=== PATIENT | male | born 1965 | race Caucasian/White ===

== ENCOUNTER 2017-07-26 11:28 | Inpatient (IN) | payer SELFPAY ==
[2017-07-26] MEDS ORDERED: NITROGLYCERIN SUBLINGUAL 0.4 MG BOTTLE OF 25. SL (12:00)
[2017-07-26 12:09] LABS: ADD MAN DIFF? NO
[2017-07-26] MEDS: ASPIRIN CHEWABLE 81 MG TABLET. PO (12:09)
[2017-07-26] MEDS: NITROGLYCERIN OINT 1 GM PACKET. TP (12:09)
[2017-07-26 12:19] LABS: BASO # 0.1 x10^3/uL (0.0-0.2); BASO % 1 % (0-3); EOS # 0.1 x10^3/uL (0.0-0.7); EOS % 1 % (0-3); HEMATOCRIT 23.2 % (39.0-53.0); HEMOGLOBIN 7.4 g/dL (13.0-17.5); LYMPH # 1.4 x10^3/uL (1.0-4.8); LYMPH % 14 % (24-48); MEAN CORPUSCULAR HEMOGLOBIN 27 pg (25-35); MEAN CORPUSCULAR HGB CONC 32 g/dL (31-37); MEAN CORPUSCULAR VOLUME 85 fL (79-100); MONO # 0.6 x10^3/uL (0.0-1.1); MONO % 6 % (0-9); NEUT # 7.7 x10^3uL (1.8-7.7); NEUT % 77 % (31-73); PLATELET COUNT 218 x10^3/uL (140-400); RED BLOOD COUNT 2.72 x10^6/uL (4.30-5.70); RED CELL DISTRIBUTION WIDTH 16.7 % (11.5-14.5); WHITE BLOOD COUNT 9.9 x10^3/uL (4.0-11.0)
[2017-07-26 12:34] LABS: ANION GAP 17 (6-14); BLOOD UREA NITROGEN 65 mg/dL (8-26); BUN/CREATININE RATIO 8 (6-20); CALCIUM 8.9 mg/dL (8.5-10.1); CARBON DIOXIDE 17 mmol/L (21-32); CHLORIDE 104 mmol/L (98-107); CREATININE 7.7 mg/dL (0.7-1.3); GFR 7.4; GLUCOSE 132 mg/dL (70-99); POTASSIUM 5.3 mmol/L (3.5-5.1); SODIUM 138 mmol/L (136-145)
[2017-07-26 12:36] LABS: INFLUENZA A PATIENT NEGATIVE (NEGATIVE); INFLUENZA B PATIENT NEGATIVE (NEGATIVE); OBC FLU VALID
[2017-07-26 12:45] LABS: ALBUMIN 3.6 g/dL (3.4-5.0); ALK PHOS 128 U/L (46-116); ALT (SGPT) 150 U/L (16-63); AST (SGOT) 123 U/L (15-37); TOTAL BILIRUBIN 0.4 mg/dL (0.2-1.0); TOTAL PROTEIN 7.1 g/dL (6.4-8.2)
[2017-07-26 13:15] LABS: NT-PRO BNP > 35000 pg/mL (0-124)
[2017-07-26] MEDS: FUROSEMIDE 100 MG/10 ML VIAL. IVP (14:29)
[2017-07-26 16:34] LABS: RETIC COUNT 1.5 % (0.5-2.5)
[2017-07-26 16:51] LABS: MAGNESIUM 2.4 mg/dL (1.8-2.4)
[2017-07-26 16:51] LABS: CHOLESTEROL 205 mg/dL (0-200); CHOLESTEROL/HDL RATIO 7.1; HDLC 29 mg/dL (40-60); LDLC 148 mg/dL (0-100); NON-HDL CHOLESTEROL 176 mg/dL (0-129); TRIGLYCERIDES 140 mg/dL (0-150); VLDLC 28 mg/dL (0-40)
[2017-07-26 16:53] LABS: ALBUMIN 3.7 g/dL (3.4-5.0); ALK PHOS 125 U/L (46-116); ALT (SGPT) 149 U/L (16-63); AST (SGOT) 118 U/L (15-37); DIRECT BILIRUBIN 0.1 mg/dL (0.0-0.2); TOTAL BILIRUBIN 0.4 mg/dL (0.2-1.0); TOTAL PROTEIN 6.9 g/dL (6.4-8.2)
[2017-07-26 17:03] LABS: THYROID STIM HORMONE (TSH) 3.477 uIU/mL (0.358-3.74)
[2017-07-26 17:08] LABS: INR 1.4 (0.8-1.1); PROTHROMBIN TIME PATIENT 16.7 SEC (11.7-14.0)
[2017-07-26 17:18] LABS: % SAT IRON 4 % (15-34); IRON,SERUM 18 ug/dL (65-175)
[2017-07-26 17:55] LABS: BARBITURATES NEG (NEG); BENZODIAZEPINES NEG (NEG); CANNABINOIDS NEG (NEG); COCAINE POS (NEG); METHADONE NEG (NEG); OPIATES NEG (NEG); PHENCYCLIDINE NEG (NEG)
[2017-07-26 18:01] LABS: AMPHETAMINE/METHAMPHETAMINE NEG (NEG); ETHANOL, URINE NEG (NEG)
[2017-07-26 18:13] LABS: VITAMIN-B12 1032 pg/mL (247-911)
[2017-07-26 18:13] LABS: FOLATE 11.74 ng/ml (3.2-20.0)
[2017-07-27 01:07] LABS: ADD MAN DIFF? NO
[2017-07-27 01:23] LABS: BASO # 0.1 x10^3/uL (0.0-0.2); BASO % 1 % (0-3); EOS # 0.3 x10^3/uL (0.0-0.7); EOS % 3 % (0-3); LYMPH # 1.5 x10^3/uL (1.0-4.8); LYMPH % 18 % (24-48); MEAN CORPUSCULAR HEMOGLOBIN 27 pg (25-35); MEAN CORPUSCULAR HGB CONC 33 g/dL (31-37); MEAN CORPUSCULAR VOLUME 83 fL (79-100); MONO # 0.4 x10^3/uL (0.0-1.1); MONO % 5 % (0-9); NEUT % 73 % (31-73); PLATELET COUNT 181 x10^3/uL (140-400); RED BLOOD COUNT 2.41 x10^6/uL (4.30-5.70); RED CELL DISTRIBUTION WIDTH 17.7 % (11.5-14.5); WHITE BLOOD COUNT 8.2 x10^3/uL (4.0-11.0)
[2017-07-27 01:32] LABS: ALBUMIN 3.3 g/dL (3.4-5.0); ALBUMIN/GLOBULIN RATIO 1.2 (1.0-1.7); ALK PHOS 111 U/L (46-116); ALT (SGPT) 104 U/L (16-63); ANION GAP 17 (6-14); AST (SGOT) 46 U/L (15-37); BLOOD UREA NITROGEN 64 mg/dL (8-26); BUN/CREATININE RATIO 8 (6-20); CALCIUM 8.3 mg/dL (8.5-10.1); CARBON DIOXIDE 16 mmol/L (21-32); CHLORIDE 105 mmol/L (98-107); CREATININE 7.6 mg/dL (0.7-1.3); GFR 7.6; GLUCOSE 88 mg/dL (70-99); MAGNESIUM 2.1 mg/dL (1.8-2.4); POTASSIUM 3.9 mmol/L (3.5-5.1); SODIUM 138 mmol/L (136-145); TOTAL BILIRUBIN 0.3 mg/dL (0.2-1.0); TOTAL PROTEIN 6.1 g/dL (6.4-8.2)
[2017-07-27] MEDS: NICOTINE 14MG PATCH. TD (01:33)
[2017-07-27 01:35] LABS: HEMATOCRIT 20.1 % (39.0-53.0); HEMOGLOBIN 6.5 g/dL (13.0-17.5)
[2017-07-27 01:36] LABS: TROPONINI 0.204 ng/mL (0.000-0.055)
[2017-07-27 02:17] LABS: MRSA BY PCR Negative (Negative)
[2017-07-27 05:29] LABS: IMMEDIATE SPIN CROSSMATCH 1 1
[2017-07-27] MEDS: ASPIRIN ENTERIC COATED 81 MG TABLET.DR. PO (08:51)
[2017-07-27 09:25] LABS: HEMATOCRIT 25.7 % (39.0-53.0); HEMOGLOBIN 8.2 g/dL (13.0-17.5); MEAN CORPUSCULAR HGB CONC 32 g/dL (31-37)
[2017-07-27] MEDS ORDERED: hydrALAZINE 20 MG/ML VIAL. IVP (11:15)
[2017-07-27] MEDS: ISOSORBIDE MONONITRATE ER 30 MG TAB.ER.24H PO (11:26)
[2017-07-27] MEDS: CARVEDILOL 12.5 MG TABLET. PO ×2 (11:26→16:48)
[2017-07-27] MEDS: FUROSEMIDE 40 MG/4 ML VIAL. IVP ×2 (11:26→16:48)
[2017-07-27] MEDS ORDERED: MAGNESIUM SULFATE 2GM 50 ML IV (11:30)
[2017-07-27 12:14] LABS: BILIRUBIN,URINE NEGATIVE (NEG); CLARITY,URINE CLEAR; COLOR,URINE YELLOW; GLUCOSE,URINE NEGATIVE (NEG); NITRITE,URINE NEGATIVE (NEG); PROTEIN,URINE 100 mg/dL (NEG-TRACE); UROBILINOGEN,URINE 0.2 mg/dL (0.2 mg/dL)
[2017-07-27 12:21] LABS: AMPHETAMINE/METHAMPHETAMINE NEG (NEG); BARBITURATES NEG (NEG); BENZODIAZEPINES NEG (NEG); CANNABINOIDS NEG (NEG); COCAINE POS (NEG); METHADONE NEG (NEG); OPIATES NEG (NEG); PHENCYCLIDINE NEG (NEG)
[2017-07-27 12:29] LABS: BACTERIA,URINE 0 /HPF (0-FEW)
[2017-07-27 12:33] LABS: TROPONINI 0.157 ng/mL (0.000-0.055)
[2017-07-27 12:43] LABS: FERRITIN 34 ng/mL (26-388)
[2017-07-27 13:20] LABS: SEDIMENTATION RATE 50 (0-15)
[2017-07-27 13:55] LABS: % SAT IRON 9 % (15-34); IRON,SERUM 35 ug/dL (65-175)
[2017-07-27] MEDS: PANTOPRAZOLE 40 MG TABLET.DR. PO (13:56)
[2017-07-27] MEDS ORDERED: IRON SUCROSE COMPLEX 200 MG in TOTAL VOLUME SYRINGE 1 ML IVP (14:00)
[2017-07-27] MEDS ORDERED: HEPARIN for IV BOLUS 10,000 UNIT/10 ML VIAL. (14:13)
[2017-07-27] MEDS ORDERED: LIDOCAINE WITH 8.4% SOD BICARB 3 ML DISP.SYRIN. (14:13)
[2017-07-27] MEDS: LIDOCAINE WITH 8.4% SOD BICARB 3 ML DISP.SYRIN. INJ (14:53)
[2017-07-27] MEDS: IRON SUCROSE COMPLEX 200 MG in TOTAL VOLUME SYRINGE 1 ML IV (16:48)
[2017-07-27] MEDS ORDERED: IV NORMAL SALINE 1000ML BAG 1,000 ML IV ×2 (17:47)
[2017-07-27] MEDS ORDERED: DIALYSIS PATIENT. MC (18:00)
[2017-07-27] MEDS ORDERED: ALBUMIN HUMAN 25% 200 ML IV (18:00)
[2017-07-27] MEDS ORDERED: cloNIDine HCL 0.1 MG TABLET PO (18:00)
[2017-07-27] MEDS ORDERED: diphenhydrAMINE 50 MG/ML VIAL IV ×2 (18:00)
[2017-07-27 20:14] LABS: C3 COMPLEMENT 89 mg/dL (82-167); C4 COMPLEMENT 10 mg/dL (14-44)
[2017-07-27] MEDS: ATORVASTATIN CALCIUM 20 MG TABLET PO (23:46)
[2017-07-27] MEDS: ACETAMINOPHEN 500 MG TABLET PO (23:46)
[2017-07-27] MEDS: DARBEPOETIN ALFA 60 MCG/0.3 ML DISP.SYRIN. SQ (23:49)
[2017-07-28 05:02] LABS: ADD MAN DIFF? NO
[2017-07-28 05:07] LABS: BASO # 0.1 x10^3/uL (0.0-0.2); BASO % 1 % (0-3); EOS # 0.3 x10^3/uL (0.0-0.7); EOS % 3 % (0-3); HEMATOCRIT 24.5 % (39.0-53.0); HEMOGLOBIN 7.9 g/dL (13.0-17.5); LYMPH # 1.4 x10^3/uL (1.0-4.8); LYMPH % 17 % (24-48); MEAN CORPUSCULAR HEMOGLOBIN 27 pg (25-35); MEAN CORPUSCULAR HGB CONC 32 g/dL (31-37); MEAN CORPUSCULAR VOLUME 82 fL (79-100); MONO # 0.7 x10^3/uL (0.0-1.1); MONO % 8 % (0-9); NEUT # 5.9 x10^3uL (1.8-7.7); NEUT % 71 % (31-73); PLATELET COUNT 192 x10^3/uL (140-400); RED BLOOD COUNT 2.97 x10^6/uL (4.30-5.70); RED CELL DISTRIBUTION WIDTH 16.7 % (11.5-14.5); WHITE BLOOD COUNT 8.2 x10^3/uL (4.0-11.0)
[2017-07-28 05:29] LABS: BLOOD UREA NITROGEN 24 mg/dL (8-26); CALCIUM 8.4 mg/dL (8.5-10.1); CREATININE 4.3 mg/dL (0.7-1.3); GLUCOSE 86 mg/dL (70-99)
[2017-07-28 05:30] LABS: ALK PHOS 100 U/L (46-116); ALT (SGPT) 69 U/L (16-63); ANION GAP 12 (6-14); AST (SGOT) 21 U/L (15-37); BUN/CREATININE RATIO 6 (6-20); CARBON DIOXIDE 28 mmol/L (21-32); CHLORIDE 103 mmol/L (98-107); GFR 14.6; MAGNESIUM 1.8 mg/dL (1.8-2.4); PHOSPHORUS 4.2 mg/dL (2.6-4.7); POTASSIUM 3.3 mmol/L (3.5-5.1); SODIUM 143 mmol/L (136-145); TOTAL BILIRUBIN 0.5 mg/dL (0.2-1.0)
[2017-07-28] MEDS: CARVEDILOL 12.5 MG TABLET. PO ×2 (08:00→16:00)
[2017-07-28] MEDS ORDERED: IV NORMAL SALINE 1000ML BAG 1,000 ML IV ×2 (08:06)
[2017-07-28] MEDS ORDERED: diphenhydrAMINE 50 MG/ML VIAL IV ×2 (08:15)
[2017-07-28] MEDS ORDERED: 0.9 % SODIUM CHLORIDE 10 ML DISP.SYRIN. IV ×2 (08:15)
[2017-07-28] MEDS ORDERED: DIALYSIS PATIENT. MC (08:15)
[2017-07-28] MEDS ORDERED: hydrALAZINE 20 MG/ML VIAL. IVP (11:00)
[2017-07-28] MEDS ORDERED: ONDANSETRON PF 4 MG/2 ML VIAL. IV (11:00)
[2017-07-28] MEDS ORDERED: DOCUSATE SODIUM 100 MG CAPSULE. PO (11:00)
[2017-07-28] MEDS: ACETAMINOPHEN 325 MG TABLET. PO (11:26)
[2017-07-28] MEDS: ISOSORBIDE MONONITRATE ER 30 MG TAB.ER.24H PO (12:31)
[2017-07-28] MEDS: PANTOPRAZOLE 40 MG TABLET.DR. PO (12:31)
[2017-07-28] MEDS: amLODIPine BESYLATE 5 MG TABLET PO ×2 (12:32→21:03)
[2017-07-28] MEDS: ASPIRIN ENTERIC COATED 81 MG TABLET.DR. PO (12:32)
[2017-07-28] MEDS ORDERED: POLYETHYLENE GLYCOL 3350 17 GM PACKET. PO (15:15)
[2017-07-28 15:28] LABS: CALCIUM PTH 8.5 mg/dL (8.7-10.2); CREATININE PTH 7.68 mg/dL (0.76-1.27); PHOSPHORUS PTH 6.2 mg/dL (2.5-4.5); PTH INTACT 505 pg/mL (15-65); eGFR AFRICAN-AMER 8 (>59); eGFR NON AFRICAN-AMER 7 (>59)
[2017-07-28] MEDS: NICOTINE 14MG PATCH. TD (16:06)
[2017-07-28 18:13] LABS: HEP B SURFACE AG Negative (Negative)
[2017-07-28] MEDS: ATORVASTATIN CALCIUM 20 MG TABLET PO (21:02)
[2017-07-28] MEDS: ALPRAZolam 0.25 MG TABLET PO (21:03)
[2017-07-29] MEDS: traMADol 50 MG TABLET PO (00:23)
[2017-07-29 05:23] LABS: ADD MAN DIFF? NO
[2017-07-29 05:42] LABS: BASO # 0.1 x10^3/uL (0.0-0.2); BASO % 1 % (0-3); EOS # 0.3 x10^3/uL (0.0-0.7); EOS % 4 % (0-3); HEMATOCRIT 27.1 % (39.0-53.0); HEMOGLOBIN 8.8 g/dL (13.0-17.5); LYMPH # 2.1 x10^3/uL (1.0-4.8); LYMPH % 24 % (24-48); MEAN CORPUSCULAR HEMOGLOBIN 27 pg (25-35); MEAN CORPUSCULAR HGB CONC 32 g/dL (31-37); MEAN CORPUSCULAR VOLUME 84 fL (79-100); MONO # 0.8 x10^3/uL (0.0-1.1); MONO % 10 % (0-9); NEUT # 5.2 x10^3uL (1.8-7.7); NEUT % 61 % (31-73); PLATELET COUNT 220 x10^3/uL (140-400); RED BLOOD COUNT 3.24 x10^6/uL (4.30-5.70); RED CELL DISTRIBUTION WIDTH 17.6 % (11.5-14.5); WHITE BLOOD COUNT 8.6 x10^3/uL (4.0-11.0)
[2017-07-29 06:10] LABS: ALBUMIN 3.3 g/dL (3.4-5.0); ALBUMIN/GLOBULIN RATIO 1.3 (1.0-1.7); ALK PHOS 104 U/L (46-116); ALT (SGPT) 52 U/L (16-63); ANION GAP 8 (6-14); AST (SGOT) 13 U/L (15-37); BLOOD UREA NITROGEN 16 mg/dL (8-26); BUN/CREATININE RATIO 4 (6-20); CALCIUM 8.4 mg/dL (8.5-10.1); CARBON DIOXIDE 33 mmol/L (21-32); CHLORIDE 97 mmol/L (98-107); CREATININE 4.1 mg/dL (0.7-1.3); GFR 15.4; GLUCOSE 92 mg/dL (70-99); PHOSPHORUS 4.5 mg/dL (2.6-4.7); POTASSIUM 4.1 mmol/L (3.5-5.1); SODIUM 138 mmol/L (136-145); TOTAL BILIRUBIN 0.5 mg/dL (0.2-1.0); TOTAL PROTEIN 5.9 g/dL (6.4-8.2)
[2017-07-29] MEDS: ASPIRIN ENTERIC COATED 81 MG TABLET.DR. PO (08:00)
[2017-07-29 08:26] LABS: GLOMERULAR BASEMENT ABDY 2 units (0-20)
[2017-07-29] MEDS: amLODIPine BESYLATE 5 MG TABLET PO ×2 (09:00→20:49)
[2017-07-29] MEDS: REGADENOSON 0.4 MG/5 ML DISP.SYRIN. IV (09:35)
[2017-07-29] MEDS: IRON SUCROSE COMPLEX 200 MG in TOTAL VOLUME SYRINGE 1 ML IV (10:25)
[2017-07-29] MEDS: CARVEDILOL 12.5 MG TABLET. PO ×2 (10:26→17:57)
[2017-07-29] MEDS: PANTOPRAZOLE 40 MG TABLET.DR. PO (10:26)
[2017-07-29] MEDS: ISOSORBIDE MONONITRATE ER 30 MG TAB.ER.24H PO (10:27)
[2017-07-29] MEDS: ACETAMINOPHEN 325 MG TABLET. PO (11:45)
[2017-07-29] MEDS ORDERED: HEPARIN for IV BOLUS 10,000 UNIT/10 ML VIAL. (12:31)
[2017-07-29] MEDS ORDERED: LIDOCAINE 1%/EPI 1:100,000 20 ML VIAL. (12:31)
[2017-07-29] MEDS ORDERED: fentaNYL PF VIAL 100 MCG/2 ML VIAL (13:21)
[2017-07-29] MEDS ORDERED: MIDAZOLAM HCL/PF 2 MG/2 ML VIAL. (13:21)
[2017-07-29] MEDS: LIDOCAINE 1%/EPI 1:100,000 20 ML VIAL. INJ (13:30)
[2017-07-29] MEDS: fentaNYL PF VIAL 100 MCG/2 ML VIAL IV (13:40)
[2017-07-29] MEDS: MIDAZOLAM HCL/PF 2 MG/2 ML VIAL. IV (13:40)
[2017-07-29] MEDS ORDERED: IV NORMAL SALINE 1000ML BAG 1,000 ML IV ×2 (14:51)
[2017-07-29] MEDS ORDERED: DIALYSIS PATIENT. MC (15:00)
[2017-07-29] MEDS ORDERED: diphenhydrAMINE 50 MG/ML VIAL IV ×2 (15:00)
[2017-07-29] MEDS ORDERED: 0.9 % SODIUM CHLORIDE 10 ML DISP.SYRIN. IV ×2 (15:00)
[2017-07-29] MEDS: IRON SUCROSE COMPLEX 100 MG/5 ML VIAL IVP (17:58)
[2017-07-29 18:15] LABS: HCV ANTIBODY <0.1 s/co ratio (0.0-0.9); HEP A IGM ABDY Negative (Negative); HEP B SURFACE AG Negative (Negative)
[2017-07-29] MEDS: ATORVASTATIN CALCIUM 20 MG TABLET PO (20:49)
[2017-07-30] MEDS: ACETAMINOPHEN 325 MG TABLET. PO ×2 (00:58→21:25)
[2017-07-30 05:57] LABS: ADD MAN DIFF? NO
[2017-07-30 06:12] LABS: BASO # 0.1 x10^3/uL (0.0-0.2); BASO % 1 % (0-3); EOS # 0.4 x10^3/uL (0.0-0.7); EOS % 5 % (0-3); HEMATOCRIT 26.6 % (39.0-53.0); HEMOGLOBIN 8.3 g/dL (13.0-17.5); LYMPH # 1.8 x10^3/uL (1.0-4.8); LYMPH % 21 % (24-48); MEAN CORPUSCULAR HEMOGLOBIN 27 pg (25-35); MEAN CORPUSCULAR HGB CONC 31 g/dL (31-37); MEAN CORPUSCULAR VOLUME 85 fL (79-100); MONO % 12 % (0-9); NEUT # 5.3 x10^3uL (1.8-7.7); NEUT % 62 % (31-73); PLATELET COUNT 187 x10^3/uL (140-400); RED BLOOD COUNT 3.12 x10^6/uL (4.30-5.70); RED CELL DISTRIBUTION WIDTH 17.6 % (11.5-14.5); WHITE BLOOD COUNT 8.5 x10^3/uL (4.0-11.0)
[2017-07-30 06:23] LABS: MAGNESIUM 2.1 mg/dL (1.8-2.4)
[2017-07-30 06:28] LABS: ALBUMIN 2.9 g/dL (3.4-5.0); ALK PHOS 96 U/L (46-116); ALT (SGPT) 29 U/L (16-63); ANION GAP 7 (6-14); AST (SGOT) 8 U/L (15-37); BLOOD UREA NITROGEN 11 mg/dL (8-26); BUN/CREATININE RATIO 3 (6-20); CALCIUM 8.7 mg/dL (8.5-10.1); CARBON DIOXIDE 31 mmol/L (21-32); CHLORIDE 102 mmol/L (98-107); CREATININE 3.5 mg/dL (0.7-1.3); GFR 18.5; GLUCOSE 111 mg/dL (70-99); POTASSIUM 4.1 mmol/L (3.5-5.1); SODIUM 140 mmol/L (136-145); TOTAL BILIRUBIN 0.3 mg/dL (0.2-1.0); TOTAL PROTEIN 5.8 g/dL (6.4-8.2)
[2017-07-30 06:29] LABS: PHOSPHORUS 4.5 mg/dL (2.6-4.7)
[2017-07-30] MEDS: ASPIRIN ENTERIC COATED 81 MG TABLET.DR. PO (09:26)
[2017-07-30] MEDS: PANTOPRAZOLE 40 MG TABLET.DR. PO (09:27)
[2017-07-30] MEDS: ISOSORBIDE MONONITRATE ER 30 MG TAB.ER.24H PO (09:27)
[2017-07-30] MEDS: amLODIPine BESYLATE 5 MG TABLET PO ×2 (09:28→21:25)
[2017-07-30] MEDS: CARVEDILOL 12.5 MG TABLET. PO ×2 (09:28→17:15)
[2017-07-30 10:16] LABS: PROTEINASE 3 ANTIBODY 3.5 U/mL (0.0-3.5)
[2017-07-30 10:16] LABS: MYELOPEROXIDASE ABY 13.5 U/mL (0.0-9.0)
[2017-07-30] MEDS: ACETAMINOPHEN 500 MG TABLET PO (11:53)
[2017-07-30] MEDS: ATORVASTATIN CALCIUM 20 MG TABLET PO (21:25)
[2017-07-30] MEDS: ALPRAZolam 0.25 MG TABLET PO (23:17)
[2017-07-31 01:07] LABS: HEP B SURFACE ABDY Non Reactive (.)
[2017-07-31 05:09] LABS: ADD MAN DIFF? NO
[2017-07-31 05:22] LABS: BASO # 0.1 x10^3/uL (0.0-0.2); BASO % 1 % (0-3); EOS # 0.6 x10^3/uL (0.0-0.7); EOS % 6 % (0-3); HEMATOCRIT 24.7 % (39.0-53.0); HEMOGLOBIN 7.9 g/dL (13.0-17.5); LYMPH # 2.4 x10^3/uL (1.0-4.8); LYMPH % 26 % (24-48); MEAN CORPUSCULAR HEMOGLOBIN 27 pg (25-35); MEAN CORPUSCULAR HGB CONC 32 g/dL (31-37); MEAN CORPUSCULAR VOLUME 86 fL (79-100); MONO # 0.8 x10^3/uL (0.0-1.1); MONO % 9 % (0-9); NEUT # 5.4 x10^3uL (1.8-7.7); NEUT % 58 % (31-73); PLATELET COUNT 182 x10^3/uL (140-400); RED BLOOD COUNT 2.89 x10^6/uL (4.30-5.70); RED CELL DISTRIBUTION WIDTH 17.6 % (11.5-14.5); WHITE BLOOD COUNT 9.3 x10^3/uL (4.0-11.0)
[2017-07-31 05:48] LABS: ALBUMIN 2.9 g/dL (3.4-5.0); ALK PHOS 87 U/L (46-116); ALT (SGPT) 17 U/L (16-63); ANION GAP 11 (6-14); BUN/CREATININE RATIO 4 (6-20); CALCIUM 8.8 mg/dL (8.5-10.1); CARBON DIOXIDE 27 mmol/L (21-32); CHLORIDE 102 mmol/L (98-107); CREATININE 5.4 mg/dL (0.7-1.3); GFR 11.2; GLUCOSE 84 mg/dL (70-99); PHOSPHORUS 4.7 mg/dL (2.6-4.7); POTASSIUM 3.9 mmol/L (3.5-5.1); SODIUM 140 mmol/L (136-145); TOTAL BILIRUBIN 0.4 mg/dL (0.2-1.0); TOTAL PROTEIN 5.7 g/dL (6.4-8.2)
[2017-07-31 06:13] LABS: AST (SGOT) 6 U/L (15-37)
[2017-07-31 06:14] LABS: BLOOD UREA NITROGEN 20 mg/dL (8-26)
[2017-07-31] MEDS: amLODIPine BESYLATE 5 MG TABLET PO ×2 (08:23→21:44)
[2017-07-31] MEDS: ASPIRIN ENTERIC COATED 81 MG TABLET.DR. PO (08:23)
[2017-07-31] MEDS: PANTOPRAZOLE 40 MG TABLET.DR. PO (08:24)
[2017-07-31] MEDS: ISOSORBIDE MONONITRATE ER 30 MG TAB.ER.24H PO (08:24)
[2017-07-31] MEDS: CARVEDILOL 12.5 MG TABLET. PO ×2 (08:24→17:02)
[2017-07-31] MEDS: ACETAMINOPHEN 325 MG TABLET. PO (14:18)
[2017-07-31] MEDS: ATORVASTATIN CALCIUM 20 MG TABLET PO (21:43)
[2017-07-31] MEDS: traMADol 50 MG TABLET PO (21:43)
[2017-07-31] MEDS: ALPRAZolam 0.25 MG TABLET PO (21:43)
[2017-08-01 04:43] LABS: ADD MAN DIFF? NO
[2017-08-01 05:03] LABS: BASO # 0.1 x10^3/uL (0.0-0.2); BASO % 1 % (0-3); EOS # 0.5 x10^3/uL (0.0-0.7); EOS % 5 % (0-3); HEMATOCRIT 23.5 % (39.0-53.0); HEMOGLOBIN 7.8 g/dL (13.0-17.5); LYMPH # 1.8 x10^3/uL (1.0-4.8); LYMPH % 18 % (24-48); MEAN CORPUSCULAR HEMOGLOBIN 28 pg (25-35); MEAN CORPUSCULAR HGB CONC 33 g/dL (31-37); MEAN CORPUSCULAR VOLUME 86 fL (79-100); MONO # 0.8 x10^3/uL (0.0-1.1); MONO % 8 % (0-9); NEUT # 6.8 x10^3uL (1.8-7.7); NEUT % 68 % (31-73); PLATELET COUNT 164 x10^3/uL (140-400); RED BLOOD COUNT 2.74 x10^6/uL (4.30-5.70); RED CELL DISTRIBUTION WIDTH 17.9 % (11.5-14.5)
[2017-08-01 05:55] LABS: ALBUMIN 2.8 g/dL (3.4-5.0); ALK PHOS 81 U/L (46-116); ALT (SGPT) 12 U/L (16-63); ANION GAP 11 (6-14); AST (SGOT) 8 U/L (15-37); BUN/CREATININE RATIO 4 (6-20); CARBON DIOXIDE 27 mmol/L (21-32); CHLORIDE 101 mmol/L (98-107); CREATININE 7.4 mg/dL (0.7-1.3); GFR 7.8; GLUCOSE 89 mg/dL (70-99); MAGNESIUM 2.1 mg/dL (1.8-2.4); PHOSPHORUS 5.4 mg/dL (2.6-4.7); POTASSIUM 4.3 mmol/L (3.5-5.1); SODIUM 139 mmol/L (136-145); TOTAL BILIRUBIN 0.2 mg/dL (0.2-1.0); TOTAL PROTEIN 5.7 g/dL (6.4-8.2)
[2017-08-01 05:57] LABS: BLOOD UREA NITROGEN 33 mg/dL (8-26)
[2017-08-01] MEDS ORDERED: IRON SUCROSE COMPLEX 200 MG in IV NORMAL SALINE 100ML 100 ML IV (09:00)
[2017-08-01] MEDS ORDERED: 0.9 % SODIUM CHLORIDE 10 ML DISP.SYRIN. IV ×2 (14:15)
[2017-08-01] MEDS ORDERED: IV NORMAL SALINE 1000ML BAG 1,000 ML IV (14:15)
[2017-08-01] MEDS ORDERED: DIALYSIS PATIENT. MC ×2 (14:15)
[2017-08-01] MEDS: CARVEDILOL 12.5 MG TABLET. PO ×2 (17:00→17:02)
[2017-08-01] MEDS: amLODIPine BESYLATE 5 MG TABLET PO ×2 (17:01→20:55)
[2017-08-01] MEDS: ISOSORBIDE MONONITRATE ER 30 MG TAB.ER.24H PO (17:01)
[2017-08-01] MEDS: PANTOPRAZOLE 40 MG TABLET.DR. PO (17:02)
[2017-08-01] MEDS: IRON SUCROSE COMPLEX 200 MG in TOTAL VOLUME SYRINGE 1 ML IV (17:07)
[2017-08-01 17:18] LABS: C ANCA <1:20 titer (Neg:<1:20)
[2017-08-01] MEDS: ATORVASTATIN CALCIUM 20 MG TABLET PO (20:55)
[2017-08-01] MEDS: ACETAMINOPHEN 325 MG TABLET. PO (20:55)
[2017-08-02 03:52] LABS: ADD MAN DIFF? NO
[2017-08-02 03:56] LABS: BASO # 0.1 x10^3/uL (0.0-0.2); BASO % 1 % (0-3); EOS # 0.4 x10^3/uL (0.0-0.7); EOS % 4 % (0-3); HEMATOCRIT 24.7 % (39.0-53.0); HEMOGLOBIN 7.9 g/dL (13.0-17.5); LYMPH # 1.5 x10^3/uL (1.0-4.8); LYMPH % 17 % (24-48); MEAN CORPUSCULAR HEMOGLOBIN 28 pg (25-35); MEAN CORPUSCULAR HGB CONC 32 g/dL (31-37); MEAN CORPUSCULAR VOLUME 86 fL (79-100); MONO # 0.8 x10^3/uL (0.0-1.1); MONO % 10 % (0-9); NEUT % 69 % (31-73); PLATELET COUNT 160 x10^3/uL (140-400); RED BLOOD COUNT 2.87 x10^6/uL (4.30-5.70); RED CELL DISTRIBUTION WIDTH 18.1 % (11.5-14.5); WHITE BLOOD COUNT 8.7 x10^3/uL (4.0-11.0)
[2017-08-02 04:17] LABS: ALBUMIN 2.7 g/dL (3.4-5.0); ALBUMIN/GLOBULIN RATIO 0.9 (1.0-1.7); ALK PHOS 87 U/L (46-116); ALT (SGPT) 9 U/L (16-63); ANION GAP 3 (6-14); AST (SGOT) 9 U/L (15-37); BLOOD UREA NITROGEN 20 mg/dL (8-26); BUN/CREATININE RATIO 5 (6-20); CALCIUM 8.6 mg/dL (8.5-10.1); CARBON DIOXIDE 35 mmol/L (21-32); CHLORIDE 98 mmol/L (98-107); CREATININE 4.3 mg/dL (0.7-1.3); GFR 14.6; GLUCOSE 96 mg/dL (70-99); PHOSPHORUS 4.4 mg/dL (2.6-4.7); POTASSIUM 3.9 mmol/L (3.5-5.1); SODIUM 136 mmol/L (136-145); TOTAL BILIRUBIN 0.4 mg/dL (0.2-1.0); TOTAL PROTEIN 5.7 g/dL (6.4-8.2)
[2017-08-02] MEDS: PANTOPRAZOLE 40 MG TABLET.DR. PO (08:58)
[2017-08-02] MEDS: CARVEDILOL 12.5 MG TABLET. PO ×2 (08:58→17:00)
[2017-08-02] MEDS: amLODIPine BESYLATE 5 MG TABLET PO ×2 (08:59→21:42)
[2017-08-02] MEDS: ISOSORBIDE MONONITRATE ER 30 MG TAB.ER.24H PO (09:00)
[2017-08-02] MEDS: NICOTINE 14MG PATCH. TD (09:03)
[2017-08-02] MEDS: ATORVASTATIN CALCIUM 20 MG TABLET PO (21:41)
[2017-08-02] MEDS: ALPRAZolam 0.25 MG TABLET PO (21:42)
[2017-08-03 04:53] LABS: ADD MAN DIFF? NO
[2017-08-03 05:26] LABS: BASO # 0.1 x10^3/uL (0.0-0.2); BASO % 1 % (0-3); EOS # 0.3 x10^3/uL (0.0-0.7); EOS % 3 % (0-3); HEMATOCRIT 23.1 % (39.0-53.0); HEMOGLOBIN 7.4 g/dL (13.0-17.5); LYMPH # 1.5 x10^3/uL (1.0-4.8); LYMPH % 15 % (24-48); MEAN CORPUSCULAR HEMOGLOBIN 27 pg (25-35); MEAN CORPUSCULAR HGB CONC 32 g/dL (31-37); MEAN CORPUSCULAR VOLUME 85 fL (79-100); MONO # 0.8 x10^3/uL (0.0-1.1); MONO % 9 % (0-9); NEUT # 7.1 x10^3uL (1.8-7.7); NEUT % 72 % (31-73); PLATELET COUNT 147 x10^3/uL (140-400); RED BLOOD COUNT 2.71 x10^6/uL (4.30-5.70); RED CELL DISTRIBUTION WIDTH 18.8 % (11.5-14.5); WHITE BLOOD COUNT 9.8 x10^3/uL (4.0-11.0)
[2017-08-03 06:24] LABS: ALBUMIN 2.8 g/dL (3.4-5.0); ALBUMIN/GLOBULIN RATIO 0.9 (1.0-1.7); ALK PHOS 79 U/L (46-116); ALT (SGPT) 8 U/L (16-63); ANION GAP 12 (6-14); AST (SGOT) 7 U/L (15-37); BLOOD UREA NITROGEN 41 mg/dL (8-26); BUN/CREATININE RATIO 7 (6-20); CALCIUM 8.9 mg/dL (8.5-10.1); CARBON DIOXIDE 28 mmol/L (21-32); CHLORIDE 98 mmol/L (98-107); CREATININE 6.2 mg/dL (0.7-1.3); GFR 9.6; GLUCOSE 92 mg/dL (70-99); PHOSPHORUS 4.7 mg/dL (2.6-4.7); POTASSIUM 4.1 mmol/L (3.5-5.1); SODIUM 138 mmol/L (136-145); TOTAL BILIRUBIN 0.4 mg/dL (0.2-1.0); TOTAL PROTEIN 5.8 g/dL (6.4-8.2)
[2017-08-03 10:31] LABS: TROPONINI 0.021 ng/mL (0.000-0.055)
[2017-08-03] MEDS: IRON SUCROSE COMPLEX 200 MG in TOTAL VOLUME SYRINGE 1 ML IV (12:14)
[2017-08-03] MEDS: amLODIPine BESYLATE 5 MG TABLET PO ×2 (12:14→22:08)
[2017-08-03] MEDS: ALPRAZolam 0.25 MG TABLET PO ×2 (12:14→22:08)
[2017-08-03] MEDS: PANTOPRAZOLE 40 MG TABLET.DR. PO (12:14)
[2017-08-03] MEDS: CARVEDILOL 12.5 MG TABLET. PO ×2 (12:15→18:10)
[2017-08-03] MEDS: ISOSORBIDE MONONITRATE ER 30 MG TAB.ER.24H PO (12:15)
[2017-08-03] MEDS: NICOTINE 14MG PATCH. TD (12:16)
[2017-08-03 17:21] LABS: ANA INTERP Negative (.)
[2017-08-03] MEDS: ATORVASTATIN CALCIUM 20 MG TABLET PO (22:08)
[2017-08-03] MEDS: DARBEPOETIN ALFA 100 MCG/0.5 ML DISP.SYRIN. SQ (22:11)
[2017-08-04] MEDS: PANTOPRAZOLE 40 MG TABLET.DR. PO (09:01)
[2017-08-04] MEDS: ISOSORBIDE MONONITRATE ER 30 MG TAB.ER.24H PO (09:02)
[2017-08-04] MEDS: CARVEDILOL 12.5 MG TABLET. PO ×2 (09:03→17:00)
[2017-08-04] MEDS: amLODIPine BESYLATE 5 MG TABLET PO ×2 (09:03→21:12)
[2017-08-04] MEDS: ALPRAZolam 0.25 MG TABLET PO (09:04)
[2017-08-04] MEDS: NICOTINE 14MG PATCH. TD (09:04)
[2017-08-04 09:38] LABS: ADD MAN DIFF? NO
[2017-08-04 09:42] LABS: BASO # 0.1 x10^3/uL (0.0-0.2); BASO % 1 % (0-3); EOS # 0.3 x10^3/uL (0.0-0.7); EOS % 3 % (0-3); HEMATOCRIT 25.2 % (39.0-53.0); HEMOGLOBIN 8.1 g/dL (13.0-17.5); LYMPH # 1.3 x10^3/uL (1.0-4.8); LYMPH % 12 % (24-48); MEAN CORPUSCULAR HEMOGLOBIN 28 pg (25-35); MEAN CORPUSCULAR HGB CONC 32 g/dL (31-37); MEAN CORPUSCULAR VOLUME 86 fL (79-100); MONO # 1.2 x10^3/uL (0.0-1.1); MONO % 12 % (0-9); NEUT # 7.3 x10^3uL (1.8-7.7); NEUT % 72 % (31-73); PLATELET COUNT 162 x10^3/uL (140-400); RED BLOOD COUNT 2.92 x10^6/uL (4.30-5.70); RED CELL DISTRIBUTION WIDTH 19.6 % (11.5-14.5); WHITE BLOOD COUNT 10.1 x10^3/uL (4.0-11.0)
[2017-08-04 10:02] LABS: ALBUMIN/GLOBULIN RATIO 0.9 (1.0-1.7); ALK PHOS 76 U/L (46-116); ALT (SGPT) 9 U/L (16-63); ANION GAP 8 (6-14); AST (SGOT) 9 U/L (15-37); BLOOD UREA NITROGEN 38 mg/dL (8-26); BUN/CREATININE RATIO 8 (6-20); CALCIUM 8.8 mg/dL (8.5-10.1); CARBON DIOXIDE 31 mmol/L (21-32); CHLORIDE 98 mmol/L (98-107); GFR 12.2; GLUCOSE 97 mg/dL (70-99); POTASSIUM 4.1 mmol/L (3.5-5.1); SODIUM 137 mmol/L (136-145); TOTAL BILIRUBIN 0.4 mg/dL (0.2-1.0); TOTAL PROTEIN 6.4 g/dL (6.4-8.2)
[2017-08-04] MEDS: MORPHINE SULFATE 2 MG/ML DISP.SYRIN. IV ×4 (11:39→23:24)
[2017-08-04 12:02] LABS: TROPONINI < 0.017 ng/mL (0.000-0.055)
[2017-08-04] MEDS: LORazepam 0.5 MG TABLET PO (15:23)
[2017-08-04] MEDS: traMADol 50 MG TABLET PO (15:24)
[2017-08-04 18:21] LABS: TROPONINI < 0.017 ng/mL (0.000-0.055)
[2017-08-04] MEDS ORDERED: CONTRAST GIVEN MC (18:30)
[2017-08-04] MEDS: IOHEXOL 300 MG/ML 100ML VIAL. IV (18:39)
[2017-08-04] MEDS: ATORVASTATIN CALCIUM 20 MG TABLET PO (21:12)
[2017-08-05] MEDS ORDERED: IV NORMAL SALINE 1000ML BAG 1,000 ML IV (07:00)
[2017-08-05] MEDS: PANTOPRAZOLE 40 MG TABLET.DR. PO (07:30)
[2017-08-05] MEDS: CARVEDILOL 12.5 MG TABLET. PO ×2 (08:00→16:16)
[2017-08-05] MEDS ORDERED: DIALYSIS PATIENT. MC ×2 (08:45)
[2017-08-05 08:46] LABS: INR 1.2 (0.8-1.1); PROTHROMBIN TIME PATIENT 14.8 SEC (11.7-14.0)
[2017-08-05 08:50] LABS: ANION GAP 11 (6-14); BLOOD UREA NITROGEN 38 mg/dL (8-26); CALCIUM 9.5 mg/dL (8.5-10.1); CARBON DIOXIDE 28 mmol/L (21-32); CHLORIDE 95 mmol/L (98-107); CREATININE 4.4 mg/dL (0.7-1.3); GFR 14.2; GLUCOSE 100 mg/dL (70-99); POTASSIUM 4.4 mmol/L (3.5-5.1); SODIUM 134 mmol/L (136-145)
[2017-08-05] MEDS: amLODIPine BESYLATE 5 MG TABLET PO ×2 (09:00→20:26)
[2017-08-05] MEDS: ISOSORBIDE MONONITRATE ER 30 MG TAB.ER.24H PO (09:00)
[2017-08-05] MEDS ORDERED: LIDOCAINE WITH 8.4% SOD BICARB 3 ML DISP.SYRIN. (12:25)
[2017-08-05] MEDS ORDERED: GELATIN SPONGE SIZE 12-7MM SPONGE. (12:28)
[2017-08-05] MEDS ORDERED: MIDAZOLAM HCL/PF 2 MG/2 ML VIAL. (12:33)
[2017-08-05] MEDS ORDERED: fentaNYL PF VIAL 100 MCG/2 ML VIAL (12:33)
[2017-08-05] MEDS: GELATIN SPONGE SIZE 12-7MM SPONGE. TP (13:15)
[2017-08-05] MEDS ORDERED: hydrALAZINE 20 MG/ML VIAL. (13:23)
[2017-08-05] MEDS: fentaNYL PF VIAL 100 MCG/2 ML VIAL IV (13:25)
[2017-08-05] MEDS: LIDOCAINE WITH 8.4% SOD BICARB 3 ML DISP.SYRIN. IJ (13:26)
[2017-08-05] MEDS: MIDAZOLAM HCL/PF 2 MG/2 ML VIAL. IV (13:26)
[2017-08-05] MEDS: hydrALAZINE 20 MG/ML VIAL. IVP (13:33)
[2017-08-05] MEDS: IRON SUCROSE COMPLEX 200 MG in TOTAL VOLUME SYRINGE 1 ML IV (16:16)
[2017-08-05] MEDS: traMADol 50 MG TABLET PO (16:17)
[2017-08-05] MEDS: ATORVASTATIN CALCIUM 20 MG TABLET PO (20:25)
[2017-08-05] MEDS: ALPRAZolam 0.25 MG TABLET PO (20:25)
[2017-08-05] MEDS: MORPHINE SULFATE 2 MG/ML DISP.SYRIN. IV (20:28)
[2017-08-06] MEDS: traMADol 50 MG TABLET PO ×2 (04:00→09:31)
[2017-08-06] MEDS: PANTOPRAZOLE 40 MG TABLET.DR. PO (09:29)
[2017-08-06] MEDS: CARVEDILOL 12.5 MG TABLET. PO ×2 (09:30→17:00)
[2017-08-06] MEDS: ISOSORBIDE MONONITRATE ER 30 MG TAB.ER.24H PO (09:30)
[2017-08-06] MEDS: amLODIPine BESYLATE 5 MG TABLET PO ×2 (09:31→20:57)
[2017-08-06] MEDS ORDERED: ALBUMIN HUMAN 25% 200 ML IV (15:00)
[2017-08-06] MEDS ORDERED: IV NORMAL SALINE 1000ML BAG 1,000 ML IV ×2 (15:00)
[2017-08-06] MEDS ORDERED: diphenhydrAMINE 50 MG/ML VIAL IV ×2 (15:15)
[2017-08-06] MEDS ORDERED: cloNIDine HCL 0.1 MG TABLET PO (15:15)
[2017-08-06] MEDS ORDERED: LABETALOL 20 MG/4 ML DISP.SYRIN. IVP (15:15)
[2017-08-06] MEDS ORDERED: DIALYSIS PATIENT. MC (15:15)
[2017-08-06] MEDS ORDERED: ACETAMINOPHEN 500 MG TABLET PO (15:15)
[2017-08-06] MEDS: oxyCODONE/APAP 5/325 1 TAB TABLET PO (17:16)
[2017-08-06] MEDS: ATORVASTATIN CALCIUM 20 MG TABLET PO (20:55)
[2017-08-07] MEDS: ACETAMINOPHEN 325 MG TABLET. PO (02:54)
[2017-08-07] MEDS: PANTOPRAZOLE 40 MG TABLET.DR. PO (06:04)
[2017-08-07] MEDS: ALPRAZolam 0.25 MG TABLET PO ×2 (13:34→20:20)
[2017-08-07] MEDS: oxyCODONE/APAP 5/325 1 TAB TABLET PO ×2 (13:34→20:20)
[2017-08-07] MEDS: ISOSORBIDE MONONITRATE ER 30 MG TAB.ER.24H PO (13:34)
[2017-08-07] MEDS: CARVEDILOL 12.5 MG TABLET. PO ×2 (13:35→17:37)
[2017-08-07] MEDS: traMADol 50 MG TABLET PO (20:20)
[2017-08-07] MEDS: ATORVASTATIN CALCIUM 20 MG TABLET PO (20:20)
[2017-08-08] MEDS: traMADol 50 MG TABLET PO (01:55)
[2017-08-08] MEDS: oxyCODONE/APAP 5/325 1 TAB TABLET PO ×2 (01:55→14:07)
[2017-08-08 06:04] LABS: MEAN CORPUSCULAR HEMOGLOBIN 28 pg (25-35); MEAN CORPUSCULAR HGB CONC 33 g/dL (31-37); MEAN CORPUSCULAR VOLUME 84 fL (79-100); PLATELET COUNT 163 x10^3/uL (140-400); RED BLOOD COUNT 2.37 x10^6/uL (4.30-5.70); WHITE BLOOD COUNT 8.1 x10^3/uL (4.0-11.0)
[2017-08-08 06:09] LABS: HEMOGLOBIN 6.6 g/dL (13.0-17.5)
[2017-08-08 06:15] LABS: ANION GAP 11 (6-14); BLOOD UREA NITROGEN 58 mg/dL (8-26); CALCIUM 9.1 mg/dL (8.5-10.1); CARBON DIOXIDE 28 mmol/L (21-32); CHLORIDE 93 mmol/L (98-107); CREATININE 6.5 mg/dL (0.7-1.3); GLUCOSE 100 mg/dL (70-99); POTASSIUM 4.3 mmol/L (3.5-5.1); SODIUM 132 mmol/L (136-145)
[2017-08-08] MEDS: CARVEDILOL 12.5 MG TABLET. PO ×2 (08:00→17:09)
[2017-08-08] MEDS ORDERED: IV NORMAL SALINE 1000ML BAG 1,000 ML IV ×2 (08:46)
[2017-08-08] MEDS ORDERED: DIALYSIS PATIENT. MC ×2 (09:00)
[2017-08-08] MEDS: ISOSORBIDE MONONITRATE ER 30 MG TAB.ER.24H PO (09:00)
[2017-08-08] MEDS: amLODIPine BESYLATE 2.5 MG TABLET PO (09:00)
[2017-08-08] MEDS ORDERED: 0.9 % SODIUM CHLORIDE 10 ML DISP.SYRIN. IV ×2 (09:00)
[2017-08-08] MEDS: ALPRAZolam 0.25 MG TABLET PO (09:05)
[2017-08-08] MEDS: PANTOPRAZOLE 40 MG TABLET.DR. PO (09:05)
[2017-08-08 10:57] LABS: IMMEDIATE SPIN CROSSMATCH 1 1
[2017-08-08 18:49] LABS: ADD MAN DIFF? NO
[2017-08-08 18:52] LABS: BASO # 0.1 x10^3/uL (0.0-0.2); BASO % 1 % (0-3); EOS # 0.3 x10^3/uL (0.0-0.7); EOS % 4 % (0-3); HEMATOCRIT 27.2 % (39.0-53.0); HEMOGLOBIN 8.9 g/dL (13.0-17.5); LYMPH # 0.9 x10^3/uL (1.0-4.8); LYMPH % 11 % (24-48); MEAN CORPUSCULAR HEMOGLOBIN 28 pg (25-35); MEAN CORPUSCULAR HGB CONC 33 g/dL (31-37); MEAN CORPUSCULAR VOLUME 85 fL (79-100); MONO # 1.1 x10^3/uL (0.0-1.1); MONO % 13 % (0-9); NEUT # 5.8 x10^3uL (1.8-7.7); NEUT % 72 % (31-73); PLATELET COUNT 208 x10^3/uL (140-400); RED BLOOD COUNT 3.19 x10^6/uL (4.30-5.70); RED CELL DISTRIBUTION WIDTH 17.8 % (11.5-14.5); WHITE BLOOD COUNT 8.1 x10^3/uL (4.0-11.0)
[2017-08-08] MEDS: ATORVASTATIN CALCIUM 20 MG TABLET PO (21:03)
[2017-08-09] MEDS: traMADol 50 MG TABLET PO (01:40)
[2017-08-09] MEDS: PANTOPRAZOLE 40 MG TABLET.DR. PO (06:19)
[2017-08-09] MEDS: CARVEDILOL 12.5 MG TABLET. PO ×2 (08:58→17:00)
[2017-08-09] MEDS: ISOSORBIDE MONONITRATE ER 30 MG TAB.ER.24H PO (08:59)
[2017-08-09] MEDS: ALPRAZolam 0.25 MG TABLET PO (08:59)
[2017-08-09] MEDS: amLODIPine BESYLATE 2.5 MG TABLET PO (09:03)
== END 2017-08-09 17:05 | disposition home or self-care (01) | DRG 673 ==
LOC: 2 NORTH 07-27 15:30 → ER 11:28 → ED HOLD 12:48 → 1 WEST ICU 15:10
PROC: 0JH63XZ Insertion of Tunneled Vascular Access Device into Chest Subcutaneous Tissue and Fascia, Percutaneous Approach (ICD-10-PCS; 2017-07-26)
PROC: 30233N1 Transfusion of Nonautologous Red Blood Cells into Peripheral Vein, Percutaneous Approach (ICD-10-PCS; principal; 2017-07-27)
PROC: 02H633Z Insertion of Infusion Device into Right Atrium, Percutaneous Approach (ICD-10-PCS; 2017-07-27)
PROC: B244ZZZ Ultrasonography of Right Heart (ICD-10-PCS; 2017-07-27)
PROC: 5A1D70Z Performance of Urinary Filtration, Intermittent, Less than 6 Hours Per Day (ICD-10-PCS; 2017-07-27)
PROC: 5A1D70Z Performance of Urinary Filtration, Intermittent, Less than 6 Hours Per Day (ICD-10-PCS; 2017-07-28)
PROC: 02PAX3Z Removal of Infusion Device from Heart, External Approach (ICD-10-PCS; 2017-07-29)
PROC: 5A1D70Z Performance of Urinary Filtration, Intermittent, Less than 6 Hours Per Day (ICD-10-PCS; 2017-07-29)
PROC: 5A1D70Z Performance of Urinary Filtration, Intermittent, Less than 6 Hours Per Day (ICD-10-PCS; 2017-08-01)
PROC: 0TB03ZX Excision of Right Kidney, Percutaneous Approach, Diagnostic (ICD-10-PCS; 2017-08-05)
PROC: 5A1D70Z Performance of Urinary Filtration, Intermittent, Less than 6 Hours Per Day (ICD-10-PCS; 2017-08-05)
PROC: 5A1D70Z Performance of Urinary Filtration, Intermittent, Less than 6 Hours Per Day (ICD-10-PCS; 2017-08-06)
PROC: 5A1D70Z Performance of Urinary Filtration, Intermittent, Less than 6 Hours Per Day (ICD-10-PCS; 2017-08-08)
DX: N17.9 Acute kidney failure, unspecified (principal); I50.43 Acute on chronic combined systolic (congestive) and diastolic (congestive) heart failure; I13.2 Hypertensive heart and chronic kidney disease with heart failure and with stage 5 chronic kidney disease, or end stage renal disease; E87.2 Acidosis; E87.5 Hyperkalemia; I24.8 Other forms of acute ischemic heart disease; I16.9 Hypertensive crisis, unspecified; N18.6 End stage renal disease; I07.1 Rheumatic tricuspid insufficiency; D63.8 Anemia in other chronic diseases classified elsewhere; E78.5 Hyperlipidemia, unspecified; F14.10 Cocaine abuse, uncomplicated; F17.210 Nicotine dependence, cigarettes, uncomplicated; I27.20 Pulmonary hypertension, unspecified; J44.9 Chronic obstructive pulmonary disease, unspecified; Z82.49 Family history of ischemic heart disease and other diseases of the circulatory system; Z91.15 Patient's noncompliance with renal dialysis; Z91.19 Patient's noncompliance with other medical treatment and regimen
CPT/HCPCS: 36415; 36556; 36581; 50200; 71045; 71046; 71275; 76705; 76770; 76937; 76942; 77001; 78452; 80048; 80053; 80061; 80074; 80076; 80307; 81001; 82607; 82728; 82746; 83520; 83540; 83550; 83735; 83880; 83970; 84100; 84443; 84484; 85014; 85018; 85025; 85027; 85045; 85610; 85651; 86021; 86038; 86160; 86704; 86706; 86850; 86900; 86901; 86920; 87040; 87340; 87641; 87804; 87804-59; 88305; 88313; 88346; 93005; 93017; 93306; 96365; 96374; 96375; 96376; 99152; 99153; 99285; 99285-25; 99406; A4215; A9500; C1750; C1769; C1892; J0360; J0690; J0881; J1756; J1940; J2250; J2270; J2785; J3010; J3490; J7050; P9016; Q9967

== ENCOUNTER 2017-08-12 11:46 | Inpatient (IN) | payer SELFPAY ==
[2017-08-12 12:48] LABS: ADD MAN DIFF? NO
[2017-08-12 12:51] LABS: BASO # 0.1 x10^3/uL (0.0-0.2); BASO % 1 % (0-3); EOS # 0.2 x10^3/uL (0.0-0.7); EOS % 3 % (0-3); HEMATOCRIT 25.2 % (39.0-53.0); HEMOGLOBIN 8.2 g/dL (13.0-17.5); LYMPH # 0.9 x10^3/uL (1.0-4.8); LYMPH % 11 % (24-48); MEAN CORPUSCULAR HEMOGLOBIN 28 pg (25-35); MEAN CORPUSCULAR HGB CONC 33 g/dL (31-37); MEAN CORPUSCULAR VOLUME 85 fL (79-100); MONO # 0.8 x10^3/uL (0.0-1.1); MONO % 9 % (0-9); NEUT # 6.5 x10^3uL (1.8-7.7); NEUT % 76 % (31-73); PLATELET COUNT 254 x10^3/uL (140-400); RED BLOOD COUNT 2.96 x10^6/uL (4.30-5.70); RED CELL DISTRIBUTION WIDTH 17.9 % (11.5-14.5); WHITE BLOOD COUNT 8.6 x10^3/uL (4.0-11.0)
[2017-08-12 13:26] LABS: ANION GAP 20 (6-14); BLOOD UREA NITROGEN 102 mg/dL (8-26); CALCIUM 9.4 mg/dL (8.5-10.1); CARBON DIOXIDE 22 mmol/L (21-32); CHLORIDE 91 mmol/L (98-107); CREATININE 9.6 mg/dL (0.7-1.3); GFR 5.8; GLUCOSE 127 mg/dL (70-99); POTASSIUM 4.6 mmol/L (3.5-5.1); SODIUM 133 mmol/L (136-145)
[2017-08-12 13:31] LABS: ALBUMIN 2.7 g/dL (3.4-5.0); ALK PHOS 131 U/L (46-116); ALT (SGPT) 18 U/L (16-63); AST (SGOT) 12 U/L (15-37); DIRECT BILIRUBIN 0.1 mg/dL (0.0-0.2); MAGNESIUM 2.6 mg/dL (1.8-2.4); TOTAL BILIRUBIN 0.4 mg/dL (0.2-1.0); TOTAL PROTEIN 7.1 g/dL (6.4-8.2)
[2017-08-12 13:34] LABS: TROPONINI < 0.017 ng/mL (0.000-0.055)
[2017-08-12 13:38] LABS: CKMB MASS < 0.5 ng/mL (0.0-3.6); CREATINE KINASE 23 U/L (39-308)
[2017-08-12 13:38] LABS: NT-PRO BNP 14948 pg/mL (0-124)
[2017-08-12 14:30] LABS: BILIRUBIN,URINE NEGATIVE (NEG); CLARITY,URINE CLEAR; COLOR,URINE YELLOW; GLUCOSE,URINE NEGATIVE (NEG); NITRITE,URINE NEGATIVE (NEG); PH,URINE 6.5; PROTEIN,URINE 100 mg/dL (NEG-TRACE)
[2017-08-12] MEDS ORDERED: ONDANSETRON PF 4 MG/2 ML VIAL. IV ×2 (14:30→15:15)
[2017-08-12 14:39] LABS: BACTERIA,URINE 0 /HPF (0-FEW); RBC,URINE 0 /HPF (0-2); SQUAMOUS EPITHELIAL CELL,UR OCC /LPF; WBC,URINE OCC /HPF (0-4)
[2017-08-12 14:40] LABS: AMORPHOUS SEDIMENT,UR PRESENT /HPF
[2017-08-12] MEDS: oxyCODONE/APAP 5/325 1 TAB TABLET PO ×2 (17:33→22:28)
[2017-08-12] MEDS: CARVEDILOL 12.5 MG TABLET. PO (17:34)
[2017-08-12] MEDS: NICOTINE 21MG PATCH. TD (17:35)
[2017-08-12] MEDS: ATORVASTATIN CALCIUM 20 MG TABLET PO (21:15)
[2017-08-13 06:42] LABS: ADD MAN DIFF? NO
[2017-08-13 06:47] LABS: BASO # 0.1 x10^3/uL (0.0-0.2); BASO % 1 % (0-3); EOS # 0.2 x10^3/uL (0.0-0.7); EOS % 3 % (0-3); HEMATOCRIT 24.7 % (39.0-53.0); HEMOGLOBIN 7.8 g/dL (13.0-17.5); LYMPH % 13 % (24-48); MEAN CORPUSCULAR HEMOGLOBIN 28 pg (25-35); MEAN CORPUSCULAR HGB CONC 32 g/dL (31-37); MEAN CORPUSCULAR VOLUME 87 fL (79-100); MONO # 0.9 x10^3/uL (0.0-1.1); MONO % 11 % (0-9); NEUT # 5.7 x10^3uL (1.8-7.7); NEUT % 72 % (31-73); PLATELET COUNT 262 x10^3/uL (140-400); RED BLOOD COUNT 2.83 x10^6/uL (4.30-5.70); RED CELL DISTRIBUTION WIDTH 17.7 % (11.5-14.5)
[2017-08-13 07:08] LABS: ANION GAP 17 (6-14); BLOOD UREA NITROGEN 105 mg/dL (8-26); CARBON DIOXIDE 23 mmol/L (21-32); CHLORIDE 93 mmol/L (98-107); GFR 5.5; GLUCOSE 99 mg/dL (70-99); POTASSIUM 4.6 mmol/L (3.5-5.1); SODIUM 133 mmol/L (136-145)
[2017-08-13] MEDS: CARVEDILOL 12.5 MG TABLET. PO ×2 (09:09→17:36)
[2017-08-13] MEDS: NICOTINE 21MG PATCH. TD (09:13)
[2017-08-13] MEDS: oxyCODONE/APAP 5/325 1 TAB TABLET PO ×3 (09:16→18:40)
[2017-08-13] MEDS: amLODIPine BESYLATE 2.5 MG TABLET PO (10:12)
[2017-08-13] MEDS: ISOSORBIDE MONONITRATE ER 30 MG TAB.ER.24H PO (10:12)
[2017-08-13] MEDS: PANTOPRAZOLE 40 MG TABLET.DR. PO (10:13)
[2017-08-13] MEDS ORDERED: DIALYSIS PATIENT. MC ×2 (11:45)
[2017-08-13] MEDS: ATORVASTATIN CALCIUM 20 MG TABLET PO (22:11)
[2017-08-13] MEDS: DARBEPOETIN ALFA 25 MCG/0.42 ML DISP.SYRIN. SQ (22:12)
[2017-08-14] MEDS: oxyCODONE/APAP 5/325 1 TAB TABLET PO ×5 (00:48→18:06)
[2017-08-14] MEDS: PANTOPRAZOLE 40 MG TABLET.DR. PO (05:52)
[2017-08-14] MEDS: ACETAMINOPHEN 325 MG TABLET. PO ×2 (07:30→21:10)
[2017-08-14 08:34] LABS: ADD MAN DIFF? NO
[2017-08-14 08:36] LABS: BASO % 0 % (0-3); EOS # 0.1 x10^3/uL (0.0-0.7); EOS % 2 % (0-3); HEMOGLOBIN 7.3 g/dL (13.0-17.5); LYMPH # 1.1 x10^3/uL (1.0-4.8); LYMPH % 13 % (24-48); MEAN CORPUSCULAR HEMOGLOBIN 28 pg (25-35); MEAN CORPUSCULAR HGB CONC 33 g/dL (31-37); MEAN CORPUSCULAR VOLUME 84 fL (79-100); MONO # 0.9 x10^3/uL (0.0-1.1); MONO % 11 % (0-9); NEUT % 74 % (31-73); PLATELET COUNT 286 x10^3/uL (140-400); RED BLOOD COUNT 2.63 x10^6/uL (4.30-5.70); RED CELL DISTRIBUTION WIDTH 17.5 % (11.5-14.5); WHITE BLOOD COUNT 8.1 x10^3/uL (4.0-11.0)
[2017-08-14 08:43] LABS: ANION GAP 12 (6-14); BLOOD UREA NITROGEN 51 mg/dL (8-26); CALCIUM 8.9 mg/dL (8.5-10.1); CARBON DIOXIDE 27 mmol/L (21-32); CHLORIDE 96 mmol/L (98-107); GFR 9.9; GLUCOSE 137 mg/dL (70-99); POTASSIUM 3.8 mmol/L (3.5-5.1); SODIUM 135 mmol/L (136-145)
[2017-08-14] MEDS: NICOTINE 21MG PATCH. TD (09:41)
[2017-08-14] MEDS: ISOSORBIDE MONONITRATE ER 30 MG TAB.ER.24H PO (09:42)
[2017-08-14] MEDS: CARVEDILOL 12.5 MG TABLET. PO ×2 (09:42→18:05)
[2017-08-14] MEDS: amLODIPine BESYLATE 2.5 MG TABLET PO (09:43)
[2017-08-14 10:42] LABS: INFLUENZA A PATIENT NEGATIVE (NEGATIVE); INFLUENZA B PATIENT NEGATIVE (NEGATIVE); OBC FLU VALID
[2017-08-14] MEDS: HEPARIN PF for SUB-Q USE 5,000 UNIT/0.5 ML VIAL. SQ ×2 (14:51→21:14)
[2017-08-14 20:17] LABS: BACTERIA,URINE 0 /HPF (0-FEW); BILIRUBIN,URINE NEGATIVE (NEG); CLARITY,URINE CLEAR; COLOR,URINE YELLOW; GLUCOSE,URINE NEGATIVE (NEG); NITRITE,URINE NEGATIVE (NEG); PH,URINE 7.5; PROTEIN,URINE 100 mg/dL (NEG-TRACE); SQUAMOUS EPITHELIAL CELL,UR FEW /LPF
[2017-08-14] MEDS: ATORVASTATIN CALCIUM 20 MG TABLET PO (21:10)
[2017-08-15] MEDS: oxyCODONE/APAP 5/325 1 TAB TABLET PO ×4 (00:44→13:37)
[2017-08-15] MEDS: HEPARIN PF for SUB-Q USE 5,000 UNIT/0.5 ML VIAL. SQ (06:10)
[2017-08-15 06:24] LABS: ADD MAN DIFF? NO
[2017-08-15 06:43] LABS: ANION GAP 11 (6-14); BLOOD UREA NITROGEN 69 mg/dL (8-26); CALCIUM 8.8 mg/dL (8.5-10.1); CARBON DIOXIDE 27 mmol/L (21-32); CHLORIDE 95 mmol/L (98-107); CREATININE 7.2 mg/dL (0.7-1.3); GLUCOSE 100 mg/dL (70-99); POTASSIUM 4.6 mmol/L (3.5-5.1); SODIUM 133 mmol/L (136-145)
[2017-08-15 06:50] LABS: BASO # 0.1 x10^3/uL (0.0-0.2); BASO % 1 % (0-3); EOS # 0.1 x10^3/uL (0.0-0.7); EOS % 1 % (0-3); HEMOGLOBIN 7.1 g/dL (13.0-17.5); LYMPH # 0.9 x10^3/uL (1.0-4.8); LYMPH % 8 % (24-48); MEAN CORPUSCULAR HEMOGLOBIN 27 pg (25-35); MEAN CORPUSCULAR HGB CONC 32 g/dL (31-37); MEAN CORPUSCULAR VOLUME 84 fL (79-100); MONO # 0.9 x10^3/uL (0.0-1.1); MONO % 8 % (0-9); NEUT # 9.2 x10^3uL (1.8-7.7); NEUT % 82 % (31-73); PLATELET COUNT 284 x10^3/uL (140-400); RED BLOOD COUNT 2.63 x10^6/uL (4.30-5.70); RED CELL DISTRIBUTION WIDTH 18.1 % (11.5-14.5); WHITE BLOOD COUNT 11.2 x10^3/uL (4.0-11.0)
[2017-08-15] MEDS: PANTOPRAZOLE 40 MG TABLET.DR. PO (07:59)
[2017-08-15] MEDS: CARVEDILOL 12.5 MG TABLET. PO (08:00)
[2017-08-15] MEDS: NICOTINE 21MG PATCH. TD (08:00)
[2017-08-15] MEDS: amLODIPine BESYLATE 2.5 MG TABLET PO (14:01)
[2017-08-15] MEDS: ISOSORBIDE MONONITRATE ER 30 MG TAB.ER.24H PO (14:03)
== END 2017-08-15 16:00 | disposition home or self-care (01) | DRG 682 ==
LOC: ER 11:46 → ED HOLD 13:49 → 4 NORTH 16:28
PROC: 5A1D70Z Performance of Urinary Filtration, Intermittent, Less than 6 Hours Per Day (ICD-10-PCS; principal; 2017-08-13)
DX: I12.0 Hypertensive chronic kidney disease with stage 5 chronic kidney disease or end stage renal disease (principal); N18.6 End stage renal disease; J98.11 Atelectasis; D63.1 Anemia in chronic kidney disease; E78.5 Hyperlipidemia, unspecified; Z82.49 Family history of ischemic heart disease and other diseases of the circulatory system; Z99.2 Dependence on renal dialysis
CPT/HCPCS: 36415; 71045; 80048; 80076; 81001; 82553; 83735; 83880; 84484; 85025; 87040; 87804; 87804-59; 93005; 99285; 99285-25; 99406; J0881

== ENCOUNTER 2017-08-17 07:35 | Inpatient (IN) | payer SELFPAY ==
[2017-08-17 07:57] LABS: HEMATOCRIT 25.3 % (39.0-53.0); HEMOGLOBIN 8.4 g/dL (13.0-17.5); MEAN CORPUSCULAR HEMOGLOBIN 28 pg (25-35); MEAN CORPUSCULAR HGB CONC 33 g/dL (31-37); MEAN CORPUSCULAR VOLUME 84 fL (79-100); PLATELET COUNT 380 x10^3/uL (140-400); RED BLOOD COUNT 3.02 x10^6/uL (4.30-5.70); RED CELL DISTRIBUTION WIDTH 18.4 % (11.5-14.5); WHITE BLOOD COUNT 12.3 x10^3/uL (4.0-11.0)
[2017-08-17 08:12] LABS: ANION GAP 13 (6-14); BLOOD UREA NITROGEN 55 mg/dL (8-26); CALCIUM 9.2 mg/dL (8.5-10.1); CARBON DIOXIDE 29 mmol/L (21-32); CHLORIDE 95 mmol/L (98-107); CREATININE 6.8 mg/dL (0.7-1.3); GFR 8.6; GLUCOSE 131 mg/dL (70-99); SODIUM 137 mmol/L (136-145)
[2017-08-17 08:13] LABS: POTASSIUM 4.3 mmol/L (3.5-5.1)
[2017-08-17 08:20] LABS: INFLUENZA A PATIENT NEGATIVE (NEGATIVE); INFLUENZA B PATIENT POSITIVE (NEGATIVE); OBC FLU VALID
[2017-08-17] MEDS ORDERED: OSELTAMIVIR 75 MG CAPSULE PO ×2 (08:30)
[2017-08-17] MEDS ORDERED: OSELTAMIVIR 30 MG CAPSULE PO ×2 (08:30)
[2017-08-17] MEDS: ISOSORBIDE MONONITRATE ER 30 MG TAB.ER.24H PO ×2 (12:00)
[2017-08-17] MEDS: amLODIPine BESYLATE 2.5 MG TABLET PO ×2 (12:00)
[2017-08-17] MEDS: OSELTAMIVIR 30 MG CAPSULE PO ×2 (12:12)
[2017-08-17] MEDS: oxyCODONE/APAP 5/325 1 TAB TABLET PO ×4 (12:12→18:54)
[2017-08-17] MEDS: PANTOPRAZOLE 40 MG TABLET.DR. PO ×2 (12:14)
[2017-08-17] MEDS ORDERED: IV NORMAL SALINE 1000ML BAG 1,000 ML IV ×4 (16:47)
[2017-08-17] MEDS ORDERED: DIALYSIS PATIENT. MC ×4 (17:00)
[2017-08-17] MEDS: ATORVASTATIN CALCIUM 20 MG TABLET PO ×2 (21:32)
[2017-08-17] MEDS: CARVEDILOL 12.5 MG TABLET. PO ×2 (21:32)
[2017-08-18] MEDS: oxyCODONE/APAP 5/325 1 TAB TABLET PO ×4 (00:53→09:00)
[2017-08-18] MEDS: amLODIPine BESYLATE 2.5 MG TABLET PO ×2 (08:59)
[2017-08-18] MEDS: PANTOPRAZOLE 40 MG TABLET.DR. PO ×2 (09:00)
[2017-08-18] MEDS: CARVEDILOL 12.5 MG TABLET. PO ×2 (09:00)
[2017-08-18] MEDS: ISOSORBIDE MONONITRATE ER 30 MG TAB.ER.24H PO ×2 (09:00)
[2017-08-18] MEDS: OSELTAMIVIR 30 MG CAPSULE PO ×2 (10:42)
== END 2017-08-18 15:18 | disposition home or self-care (01) | DRG 193 ==
LOC: ER 07:35 → ED HOLD 08:00 → 5 SOUTH 11:23
PROC: 5A1D70Z Performance of Urinary Filtration, Intermittent, Less than 6 Hours Per Day (ICD-10-PCS; principal; 2017-08-17)
DX: J10.1 Influenza due to other identified influenza virus with other respiratory manifestations (principal); N18.6 End stage renal disease; E11.22 Type 2 diabetes mellitus with diabetic chronic kidney disease; I12.0 Hypertensive chronic kidney disease with stage 5 chronic kidney disease or end stage renal disease; D63.1 Anemia in chronic kidney disease; E78.5 Hyperlipidemia, unspecified; Z79.899 Other long term (current) drug therapy; Z82.49 Family history of ischemic heart disease and other diseases of the circulatory system; Z99.2 Dependence on renal dialysis
CPT/HCPCS: 36415; 71045; 80048; 85027; 87804; 87804-59; 93005; 99285; 99285-25

== ENCOUNTER → 2017-10-10 | Outpatient (CLI) | payer OTHER ==
[2017-10-10 08:52] LABS: HEMATOCRIT 23.2 % (39.0-53.0); HEMOGLOBIN 7.7 g/dL (13.0-17.5); MEAN CORPUSCULAR HGB CONC 33 g/dL (31-37)
== END | disposition home or self-care (01) ==
LOC: OPS 08:22
DX: I13.2 Hypertensive heart and chronic kidney disease with heart failure and with stage 5 chronic kidney disease, or end stage renal disease (principal); E11.22 Type 2 diabetes mellitus with diabetic chronic kidney disease; N18.6 End stage renal disease; D63.1 Anemia in chronic kidney disease; I50.43 Acute on chronic combined systolic (congestive) and diastolic (congestive) heart failure; J44.9 Chronic obstructive pulmonary disease, unspecified; E78.5 Hyperlipidemia, unspecified; G89.29 Other chronic pain; F17.210 Nicotine dependence, cigarettes, uncomplicated; Z87.01 Personal history of pneumonia (recurrent); Z99.2 Dependence on renal dialysis; Z79.899 Other long term (current) drug therapy
CPT/HCPCS: 36415; 85014; 85018; 86850; 86900; 86901

== ENCOUNTER → 2018-03-01 | Outpatient (CLI) | payer MEDICARE, OTHER ==
[2017-10-10 08:44] VITALS: BP 172/82
[~2018-03-01] MED LIST: AMLO2.5T3 PO; ATOR20TA58 PO; CARV12.52 PO; DOXY100C2 PO; ISOS30TA4 PO; OXYC1TAB7 PO; PANT20TA2 PO; Pantoprazole PO
--- NOTE | 2018-03-01 16:25 | CARD ---
MR#: [id number] Date of Study: 03/01/2018 Ordering Physician: KEVIN BUNN, Referring Physician: KEVIN BUNN, Tech: Gosia Carbone AUNG APPROVED REPORT EXAM: Two-dimensional and M-mode echocardiogram with Doppler and color Doppler. Other Information Quality : Good INDICATION ESRD 2D DIMENSIONS RVDd3.2 (2.9-3.5cm)Left Atrium(2D)3.6 (1.6-4.0cm) IVSd1.1 (0.7-1.1cm)Aortic Root(2D)2.7 (2.0-3.7cm) LVDd4.9 (3.9-5.9cm)LVOT Diameter2.1 (1.8-2.4cm) PWd1.1 (0.7-1.1cm)LVDs3.5 (2.5-4.0cm) FS (%) 25.0 %SV59.7 ml LVEF(%)50.0 (>50%) Aortic Valve AoV Peak Carlos.170.9cm/sAoV VTI25.4cm AO Peak GR.11.7mmHgLVOT Peak Carlos.109.6cm/s AO Mean GR.6mmHgAVA (VMAX)2.12cm2 AUDI (VTI)2.24fp9BX P 1/2 Ipdz834lj Mitral Valve MV E Zmfmgjni596.4cm/sMV DECEL EXPG558xs MV A Ucfcwhfz77.5cm/sE/A Ratio1.1 Tricuspid Valve TR P. Xrbsztdb387ij/sRAP CPUUHBQS3yiWg TR Peak Gr.10cwWnRGRV49ijBu Pulmonary Vein S1 Pcgrscgm77.2cm/sD2 Jjxwnrgt07.4cm/s LEFT VENTRICLE The left ventricle is normal size. There is normal left ventricular wall thickness. Left ventricle sy stolic function is normal. The Ejection Fraction is 50-55%. RIGHT VENTRICLE The right ventricle is normal size. The right ventricular systolic function is normal. ATRIA The left atrium size is normal. The right atrium size is normal. The interatrial septum is intact wit h no evidence for an atrial septal defect or patent foramen ovale as noted on 2-D or Doppler imaging. AORTIC VALVE The aortic valve is calcified but opens well. Doppler and Color Flow revealed mild aortic regurgitati on. There is no significant aortic valvular stenosis. MITRAL VALVE The mitral valve is normal in structure and function. There is no evidence of mitral valve prolapse. There is no mitral valve stenosis. Doppler and Color-flow revealed trace to mild mitral regurgitation . TRICUSPID VALVE The tricuspid valve is normal in structure and function. Doppler and Color Flow revealed trace tricus pid regurgitation. There is moderate pulmonary hypertension. The PA pressure was estimated at 48 mmHg . There is no tricuspid valve stenosis. PULMONIC VALVE The pulmonary valve is normal in structure and function. Doppler and Color Flow revealed trace pulmon ic valvular regurgitation. There is no pulmonic valvular stenosis. GREAT VESSELS The aortic root is normal in size. The ascending aorta is normal in size. The IVC is normal in size a nd collapses >50% with inspiration. PERICARDIAL EFFUSION There is small right pleural effusion. There is no evidence of significant pericardial effusion. Critical Notification Critical Value: No <Conclusion> Left ventricle systolic function is normal. The Ejection Fraction is 50-55%. Mild aortic regurgitation. Trace to mild mitral regurgitation. Trace tricuspid regurgitation. There is moderate pulmonary hypertension. The PA pressure was estimated at 48 mmHg. There is no evidence of significant pericardial effusion. Signed by : Pee Ramirez, Electronically Approved : 03/01/2018 16:24:31
== END | disposition home or self-care (01) ==
LOC: ECHO 07:51
PROVIDERS: ATTEND Internal Medicine Cardiovascular Disease
DX: I13.2 Hypertensive heart and chronic kidney disease with heart failure and with stage 5 chronic kidney disease, or end stage renal disease (principal); N18.6 End stage renal disease; I50.42 Chronic combined systolic (congestive) and diastolic (congestive) heart failure; I27.20 Pulmonary hypertension, unspecified; I35.1 Nonrheumatic aortic (valve) insufficiency; E11.9 Type 2 diabetes mellitus without complications; E78.5 Hyperlipidemia, unspecified; J44.9 Chronic obstructive pulmonary disease, unspecified
CPT/HCPCS: 93306

== ENCOUNTER → 2019-04-09 | Outpatient (CLI) | payer MEDICARE, MEDICAID ==
[2017-10-10 08:44] VITALS: BP 172/82
[~2019-04-09] MED LIST changes: -AMLO2.5T3 PO; +AMLO2.5T5 PO; +CARV12.511 PO; -CARV12.52 PO
--- NOTE | 2019-04-10 08:53 | CARD ---
MR#: [id number] Date of Study: 04/09/2019 Ordering Physician: KEVIN BUNN, Referring Physician: KEVIN BUNN, Tech: Sherita APPROVED REPORT EXAM: Two-dimensional and M-mode echocardiogram with Doppler and color Doppler. Other Information Quality : AverageHR: 69bpm INDICATION Cardiomyopathy 2D DIMENSIONS RVDd3.7 (2.9-3.5cm)Left Atrium(2D)3.5 (1.6-4.0cm) IVSd1.0 (0.7-1.1cm)LVDd4.9 (3.9-5.9cm) LVOT Diameter1.9 (1.8-2.4cm)PWd1.0 (0.7-1.1cm) Aortic Valve AoV Peak Carlos.140.4cm/Priya Peak GR.7.9mmHg LVOT Peak Carlos.117.3cm/sAVA (VMAX)1.91cm2 Mitral Valve MV E Udolgrum75.3cm/sMV DECEL INVW961jv MV A Bqjqrtic69.2cm/sMV ZLA09hc E/A Ratio1.1MVA (PHT)2.84cm2 TDI E/Lateral E'5.9E/Medial E'8.8 Pulmonary Valve PV Peak Qswblrkv100.0cm/sPV Peak Grad.6mmHg Pulmonary Vein S1 Nfttcien74.1cm/sD2 Hsgmsvjt08.5cm/s PVa pefvftnp069dkkb LEFT VENTRICLE The left ventricle is normal size. There is normal left ventricular wall thickness. The left ventricu lar systolic function is normal. The Ejection Fraction is 55-60%. There is normal LV segmental wall m otion. Transmitral Doppler flow pattern is Grade II-pseudonormal filling dynamics. RIGHT VENTRICLE The right ventricle is normal size. There is normal right ventricular wall thickness. The right ventr icular systolic function is normal. ATRIA The left atrium size is normal. The right atrium size is normal. The interatrial septum is intact wit h no evidence for an atrial septal defect or patent foramen ovale as noted on 2-D or Doppler imaging. AORTIC VALVE The aortic valve is thickened but opens well. Doppler and Color Flow revealed trace aortic regurgitat ion. There is no significant aortic valvular stenosis. MITRAL VALVE The mitral valve is normal in structure and function. There is no evidence of mitral valve prolapse. There is no mitral valve stenosis. Doppler and Color-flow revealed trace mitral regurgitation. TRICUSPID VALVE The tricuspid valve is normal in structure and function. Doppler and Color Flow revealed trace tricus pid regurgitation. There is no tricuspid valve stenosis. PULMONIC VALVE The pulmonic valve is not well visualized. Doppler and Color Flow revealed no pulmonic valvular regur gitation. GREAT VESSELS The aortic root is normal in size. The IVC is normal in size and collapses >50% with inspiration. PERICARDIAL EFFUSION There is no evidence of significant pericardial effusion. Critical Notification Critical Value: No <Conclusion> The left ventricular systolic function is normal. The Ejection Fraction is 55-60%. There is normal LV segmental wall motion. Transmitral Doppler flow pattern is Grade II-pseudonormal filling dynamics. Trace mitral regurgitation. Trace tricuspid regurgitation. There is no evidence of significant pericardial effusion. Signed by : Pee Ramirez, Electronically Approved : 04/10/2019 08:52:48
== END | disposition home or self-care (01) ==
LOC: ECHO 08:52
PROVIDERS: ATTEND Internal Medicine Cardiovascular Disease
DX: I42.9 Cardiomyopathy, unspecified (principal)
CPT/HCPCS: 93306

== ENCOUNTER 2019-12-25 00:50 | Inpatient (IN) | payer OTHER, MEDICAID ==
[2019-12-25] VITALS (11 sets, daily range): BP systolic 86–232; BP diastolic 65–119
[~2019-12-25] VITALS: Ht 170.2 cm; Wt 80.0 kg
--- NOTE | 2019-12-25 01:03 | PHYS DOC ---
Past Medical History Past Medical History: Hypertension, Renal Failure Additional Past Medical Histor: ESRD Past Surgical History: Other Additional Past Surgical Histo: rt chest portacath placement Smoking Status: Current Every Day Smoker Alcohol Use: None Drug Use: None General Adult EDM: Chief Complaint: SHORTNESS OF BREATH HPI: HPI: Patient is a 54 year oldpyx-ngcz-gqr male past medical history end-stage renal disease dialysis Tuesday hypertension hyperlipidemia presents with a chief complaint of shortness of breath with cough. Patient states cough and shortness of breath started Tuesday. Patient states he has a cough with clear sputum. Patient denies any fevers or chills. Patient does state he has bilateral lower extremity edema left greater than right. He denies any associated chest pain. Review of Systems: Review of Systems: Constitutional: Denies fever or chills. [] Eyes: Denies change in visual acuity. [] HENT: Denies nasal congestion or sore throat. [] Respiratory: Positive cough positive shortness of breath Cardiovascular: Denies chest pain positive edema. [] GI: Denies abdominal pain, nausea, vomiting, bloody stools or diarrhea. [] : Denies dysuria. [] Musculoskeletal: Denies back pain or joint pain. [] Integument: Denies rash. [] Neurologic: Denies headache, focal weakness or sensory changes. [] Endocrine: Denies polyuria or polydipsia. [] Lymphatic: Denies swollen glands. [] Psychiatric: Denies depression or anxiety. [] Heart Score: Risk Factors: Risk Factors: DM, Current or recent (<one month) smoker, HTN, HLP, family history of CAD, obesity. Risk Scores: Score 0 - 3: 2.5% MACE over next 6 weeks - Discharge Home Score 4 - 6: 20.3% MACE over next 6 weeks - Admit for Clinical Observation Score 7 - 10: 72.7% MACE over next 6 weeks - Early Invasive Strategies Allergies: Allergies: Allergies Coded Allergies Type Severity Reaction Last Updated Verified No Known Drug Allergies 08/23/17 No Physical Exam: PE: Constitutional: , no acute distress, non-toxic appearance. [] HENT: Normocephalic, atraumatic, bilateral external ears normal, Eyes:, EOMI, conjunctiva normal, no discharge. [] Neck: Normal range of motion, no tenderness, supple, no stridor. [] Cardiovascular: Tachycardia Lungs & Thorax: Decreased breath sounds bilateral, rhonchi in left Abdomen: Bowel sounds normal, soft, no tenderness, no masses, Skin: Warm, dry, no erythema, no rash. [] Back: No tenderness, no CVA tenderness. [] Extremities: No tenderness, no cyanosis, no clubbing, ROM intact, bilateral lower extremity pitting edema Neurologic: Alert and oriented X 3, normal motor function, normal sensory function, no focal deficits noted. [] Psychologic: Affect normal, judgement normal, mood normal. [] EKG: EKG: []EKG time 0056 heart rate 105 sinus tachycardia Radiology/Procedures: Radiology/Procedures: [] Impression: IMPRESSION: 1. Mild vascular congestion. 2. Bilateral effusions. 3. Atelectasis or infiltrate right lung base. Course & Med Decision Making: Course & Med Decision Making Pertinent Labs and Imaging studies reviewed. (See chart for details) [] Patient was evaluated for chief complaint. Work-up consisted of laboratory analysis radiologic imaging and EKG. Results reviewed and discussed with patient. Chest x-ray vascular congestion infiltrate versus atelectasis left lung. Patient was treated with 40 of Lasix Rocephin and Zithromax. Patient admitted to the hospitalist for further evaluation and treatment.. Nathen Disclaimer: Nathen Disclaimer: This electronic medical record was generated, in whole or in part, using a voice recognition dictation system. Departure Departure Impression: Primary Impression: Shortness of breath Additional Impressions: ESRD (end stage renal disease) Pneumonia Disposition: 01 HOME, SELF-CARE Admitting Physician: KIRK Condition: STABLE Referrals: Richie VOGEL MD (PCP) Justicifation of Admission Dx: Justifications for Admission: Justification of Admission Dx: N/A MARÍA ALVAREZ DO Dec 25, 2019 01:03
[2019-12-25 01:21] LABS: BASO # 0.1 x10^3/uL (0.0-0.2); BASO % 1 % (0-3); EOS # 0.5 x10^3/uL (0.0-0.7); EOS % 5 % (0-3); HEMATOCRIT 27.8 % (39.0-53.0); HEMOGLOBIN 9.6 g/dL (13.0-17.5); LYMPH # 1.3 x10^3/uL (1.0-4.8); LYMPH % 14 % (24-48); MEAN CORPUSCULAR HEMOGLOBIN 33 pg (25-35); MEAN CORPUSCULAR HGB CONC 35 g/dL (31-37); MEAN CORPUSCULAR VOLUME 95 fL (79-100); MONO # 0.5 x10^3/uL (0.0-1.1); MONO % 6 % (0-9); NEUT % 74 % (31-73); PLATELET COUNT 147 x10^3/uL (140-400); RED BLOOD COUNT 2.92 x10^6/uL (4.30-5.70); RED CELL DISTRIBUTION WIDTH 15.8 % (11.5-14.5); WHITE BLOOD COUNT 9.6 x10^3/uL (4.0-11.0)
[2019-12-25 01:28] LABS: CALCIUM 8.2 mg/dL (8.5-10.1); CREATININE 9.5 mg/dL (0.7-1.3); GFR 5.8; POTASSIUM 5.2 mmol/L (3.5-5.1)
[2019-12-25] MEDS ORDERED: LABETALOL 20 MG/4 ML DISP.SYRIN. IVP ONE (01:30)
[2019-12-25 01:34] LABS: ALBUMIN 3.2 g/dL (3.4-5.0); TOTAL BILIRUBIN 1.4 mg/dL (0.2-1.0); TOTAL PROTEIN 6.4 g/dL (6.4-8.2)
--- NOTE | 2019-12-25 01:36 | RAD ---
AP chest. HISTORY: Short of breath AP view was taken of the chest. There is mild vascular congestion. There are small bilateral effusions. There is fluid along the minor fissure in the right. There is atelectasis or infiltrate in the right lung base. Heart is mildly less prominent than the old study from 2018. IMPRESSION: 1. Mild vascular congestion. 2. Bilateral effusions. 3. Atelectasis or infiltrate right lung base. Electronically signed by: Fritz Jauregui MD (12/25/2019 1:33 AM) [id number]
[2019-12-25] MEDS ORDERED: cefTRIAXone IV Push 1 GM VIAL. IVP ONE (01:45)
[2019-12-25] MEDS ORDERED: AZITHRMYCN 500MG IVPB FOR OMNI 250 ML IV ONE (02:00)
[2019-12-25] MEDS ORDERED: ONDANSETRON PF 4 MG/2 ML VIAL. ONE (02:41)
[2019-12-25] MEDS ORDERED: FUROSEMIDE 40 MG/4 ML VIAL. IVP ONE (02:45)
[2019-12-25] MEDS ORDERED: ONDANSETRON PF 4 MG/2 ML VIAL. IVP ONE (02:45)
[2019-12-25] MEDS ORDERED: NITROGLYCERIN OINT 1 GM PACKET. TP ONE (02:45)
[2019-12-25 02:58] LABS: BASE EXCESS ABG 0 mmol/L (-3-3); HCO3 ABG 25 mmol/L (21-28); PCO2 ABG 42 mmHg (35-46)
[2019-12-25 03:49] LABS: FIO2 ABG 100
--- NOTE | 2019-12-25 09:27 | EKG ---
[facility] [address] [place] [address] Test Date: 2019-12-25 Test Time: 00:56:51 Pat Name: JACE ARELLANO Department: Room: 6 1 Gender: M Retirement Manager: : 1965 Requested By: MARÍA ALVAREZ Order Number: [id number] Reading MD: Arnaud Pino Measurements Intervals [place] Rate: 105 P: 34 AR: 138 QRS: 46 QRSD: 84 T: 42 QT: 336 QTc: 448 Interpretive Statements SINUS TACHYCARDIA OTHERWISE NORMAL ECG RI6.02 Compared to ECG 08/22/2017 13:18:04 Sinus rhythm no longer present Electronically Signed On 01-21-2020 12:38:33 CDT by Arnaud Pino
[2019-12-25] MEDS ORDERED: CALC667T4 PO (10:41)
[2019-12-25] MEDS ORDERED: PANT40TA6 PO (10:41)
[2019-12-25] MEDS ORDERED: HYDR-2868 PO (10:49)
[2019-12-25] MEDS ORDERED: FERR210T PO (10:49)
[2019-12-25] MEDS: ISOSORBIDE MONONITRATE ER 30 MG TAB.ER.24H PO SCH (11:00)
[2019-12-25] MEDS ORDERED: amLODIPine BESYLATE 5 MG TABLET PO SCH (11:00)
[2019-12-25] MEDS: CARVEDILOL 12.5 MG TABLET. PO SCH ×2 (11:00→17:00)
[2019-12-25] MEDS: PANTOPRAZOLE 40 MG TABLET.DR. PO SCH (11:00)
--- NOTE | 2019-12-25 11:46 | PDOC2 ---
CONSULT Date of Consult Date of Consult DATE: 12/25/19 TIME: 11:39 Reason for Consult Reason for Consult: ESRD Identification/Chief Complaint Chief Complaint Shortness of breath, cough Source Source: Chart review, Patient History of Present Illness Reason for Visit: Patient is a 54 year oldwso-mejo-gin male with Dx of end-stage renal disease dialysis Tuesday hypertension presents with a chief complaint of shortness of breath with cough. Cough and shortness of breath started Tuesday with cleat sputum No fevers or chills.He has bilateral lower extremity edema left greater than right. No associated chest pain. Recd 40 of Lasix in the ER . Currently on Bipap Past Medical History Cardiovascular: HTN, Hyperlipidemia Pulmonary: Bronchitis Heme/Onc: Anemia NOS Renal/: Chronic renal insuff Endocrine: Hyperparathyroidism Past Surgical History Past Surgical History: Other, No pertinent history Family History Family History: Coronary Artery Disease Social History ALCOHOL: occassional Drugs: None Lives: with Family Current Problem List Problem List Problems Medical Problems: (1) Pneumonia Status: Acute Current Medications Current Medications Current Medications Labetalol HCl (Normodyne Iv Push) 20 mg 1X ONCE IVP Last administered on 12/25/19at 01:27; Start 12/25/19 at 01:30; Stop 12/25/19 at 01:31; Status DC Ceftriaxone Sodium (Rocephin) 1 gm 1X ONCE IVP Last administered on 12/25/19at 02:03; Start 12/25/19 at 01:45; Stop 12/25/19 at 01:51; Status DC Azithromycin 250 ml @ 250 mls/hr 1X ONCE IV Last administered on 12/25/19at 02:03; Start 12/25/19 at 02:00; Stop 12/25/19 at 02:59; Status DC Nitroglycerin (Nitro-Bid Oint) 1 inch 1X ONCE TP Last administered on 12/25/19at 03:05; Start 12/25/19 at 02:45; Stop 12/25/19 at 03:15; Status DC Furosemide (Lasix) 40 mg 1X ONCE IVP Last administered on 12/25/19at 03:05; Start 12/25/19 at 02:45; Stop 12/25/19 at 03:15; Status DC Ondansetron HCl (Zofran) 4 mg 1X ONCE IVP Last administered on 12/25/19at 02:50; Start 12/25/19 at 02:45; Stop 12/25/19 at 03:15; Status DC Lorazepam (Ativan Inj) 1 mg PRN Q4HRS PRN IVP ANXIETY / AGITATION Last administered on 12/25/19at 02:50; Start 12/25/19 at 02:45 Ondansetron HCl (Zofran) 4 mg STK-MED ONCE .ROUTE ; Start 12/25/19 at 02:41; Stop 12/25/19 at 02:41; Status DC Lorazepam (Ativan Inj) 2 mg STK-MED ONCE .ROUTE ; Start 12/25/19 at 02:41; Stop 12/25/19 at 02:42; Status DC Atorvastatin Calcium (Lipitor) 20 mg QHS PO ; Start 12/25/19 at 21:00 Carvedilol (Coreg) 12.5 mg BIDWMEALS PO ; Start 12/25/19 at 11:00 Hydralazine HCl (Apresoline) 25 mg BID PO ; Start 12/25/19 at 11:00 Isosorbide Mononitrate (Imdur) 30 mg DAILY PO ; Start 12/25/19 at 11:00 Pantoprazole Sodium (Protonix) 40 mg DAILY PO ; Start 12/25/19 at 11:00 Amlodipine Besylate (Norvasc) 2.5 mg DAILY PO ; Start 12/25/19 at 11:00 Calcium Acetate (Phoslo) 667 mg TIDWMEALS PO ; Start 12/25/19 at 12:00 Non-Formulary Medication (Ferric Citrate ) 2 tab TIDWMEALS PO ; Start 12/25/19 at 12:00; Status UNV Active Scripts Active Isosorbide Mononitrate Er (Isosorbide Mononitrate) 30 Mg Tab.er.24h 30 Mg PO DAILY Atorvastatin Calcium 20 Mg Tablet 20 Mg PO QHS Carvedilol (Carvedilol) 12.5 Mg Tablet 12.5 Mg PO BIDWMEALS Amlodipine Besylate 2.5 Mg Tablet 2.5 Mg PO DAILY Reported Hydralazine Hcl 25 Mg Tablet 1 Tab PO BID Ferric Citrate 210 Mg Tablet 2 Tab PO TIDWMEALS Pantoprazole Sodium 40 Mg Tablet.dr 40 Mg PO DAILY Calcium Acetate 667 Mg Tablet 1 Tab PO TIDWMEALS 30 Days Allergies Allergies: Coded Allergies: No Known Drug Allergies (Unverified , 08/23/17) ROS Review of System Per HPI Physical Exam Physical Exam GEN: On Bipap HEEN: On Bipap NECK: supple CVS: S1S2, RESP: Decreased at bases GI: BS + ve, Non Tender, : No CVA tenderness, No Suprapubic Tenderness NEURO- Grossly normal EXT -LE edema ++ Vital Signs Vital Signs Date Time Temp Pulse Resp B/P (MAP) Pulse Ox O2 Delivery O2 Flow Rate FiO2 12/25/19 10:14 97.7 88 23 212/107 (142) 92 BiPAP/CPAP 97.7 12/25/19 02:40 15.0 Assessment & Plan ESRD.- On HD TTS Dialysis today as ordered, UF 3-4 as tolerated Dw K[facility] COTTER-19 Pending HyperKalemia- mild, HD today HTN- Cardiology consulted, Resume home BP meds Dialysis with IF today, Monitor Anemia - Hgb <10, hold off MARIA R 2/2 very high BP Acute on chronic respiratory failure- currently on Bipap Acute on chronic diastolic CHF Hx of cocaine abuse- UDS not done Labs Labs Laboratory Tests Test 12/25/19 01:09 12/25/19 02:44 12/25/19 06:00 White Blood Count 9.6 x10^3/uL (4.0-11.0) Red Blood Count 2.92 x10^6/uL (4.30-5.70) Hemoglobin 9.6 g/dL (13.0-17.5) Hematocrit 27.8 % (39.0-53.0) Mean Corpuscular Volume 95 fL (79-100) Mean Corpuscular Hemoglobin 33 pg (25-35) Mean Corpuscular Hemoglobin Concent 35 g/dL (31-37) Red Cell Distribution Width 15.8 % (11.5-14.5) Platelet Count 147 x10^3/uL (140-400) Neutrophils (%) (Auto) 74 % (31-73) Lymphocytes (%) (Auto) 14 % (24-48) Monocytes (%) (Auto) 6 % (0-9) Eosinophils (%) (Auto) 5 % (0-3) Basophils (%) (Auto) 1 % (0-3) Neutrophils # (Auto) 7.0 x10^3/uL (1.8-7.7) Lymphocytes # (Auto) 1.3 x10^3/uL (1.0-4.8) Monocytes # (Auto) 0.5 x10^3/uL (0.0-1.1) Eosinophils # (Auto) 0.5 x10^3/uL (0.0-0.7) Basophils # (Auto) 0.1 x10^3/uL (0.0-0.2) Sodium Level 138 mmol/L (136-145) Potassium Level 5.2 mmol/L (3.5-5.1) Chloride Level 99 mmol/L (98-107) Carbon Dioxide Level 29 mmol/L (21-32) Anion Gap 10 (6-14) Blood Urea Nitrogen 32 mg/dL (8-26) Creatinine 9.5 mg/dL (0.7-1.3) Estimated GFR (Cockcroft-Gault) 5.8 BUN/Creatinine Ratio 3 (6-20) Glucose Level 88 mg/dL (70-99) Lactic Acid Level 0.8 mmol/L (0.4-2.0) Calcium Level 8.2 mg/dL (8.5-10.1) Total Bilirubin 1.4 mg/dL (0.2-1.0) Aspartate Amino Transf (AST/SGOT) 9 U/L (15-37) Alanine Aminotransferase (ALT/SGPT) 10 U/L (16-63) Alkaline Phosphatase 96 U/L (46-116) Troponin I Quantitative < 0.017 ng/mL (0.000-0.055) < 0.017 ng/mL (0.000-0.055) KA-Foe-E-Type Natriuretic Peptide > 04052 pg/mL (0-124) Total Protein 6.4 g/dL (6.4-8.2) Albumin 3.2 g/dL (3.4-5.0) Albumin/Globulin Ratio 1.0 (1.0-1.7) O2 Saturation % (92-99) Arterial Blood pH 7.39 (7.35-7.45) Arterial Blood pCO2 at Patient Temp 42 mmHg (35-46) Arterial Blood pO2 at Patient Temp mmHg (75-108) Arterial Blood HCO3 25 mmol/L (21-28) Arterial Blood Base Excess 0 mmol/L (-3-3) FiO2 100 Laboratory Tests Test 12/25/19 01:09 12/25/19 02:44 12/25/19 06:00 White Blood Count 9.6 x10^3/uL (4.0-11.0) Red Blood Count 2.92 x10^6/uL (4.30-5.70) Hemoglobin 9.6 g/dL (13.0-17.5) Hematocrit 27.8 % (39.0-53.0) Mean Corpuscular Volume 95 fL (79-100) Mean Corpuscular Hemoglobin 33 pg (25-35) Mean Corpuscular Hemoglobin Concent 35 g/dL (31-37) Red Cell Distribution Width 15.8 % (11.5-14.5) Platelet Count 147 x10^3/uL (140-400) Neutrophils (%) (Auto) 74 % (31-73) Lymphocytes (%) (Auto) 14 % (24-48) Monocytes (%) (Auto) 6 % (0-9) Eosinophils (%) (Auto) 5 % (0-3) Basophils (%) (Auto) 1 % (0-3) Neutrophils # (Auto) 7.0 x10^3/uL (1.8-7.7) Lymphocytes # (Auto) 1.3 x10^3/uL (1.0-4.8) Monocytes # (Auto) 0.5 x10^3/uL (0.0-1.1) Eosinophils # (Auto) 0.5 x10^3/uL (0.0-0.7) Basophils # (Auto) 0.1 x10^3/uL (0.0-0.2) Sodium Level 138 mmol/L (136-145) Potassium Level 5.2 mmol/L (3.5-5.1) Chloride Level 99 mmol/L (98-107) Carbon Dioxide Level 29 mmol/L (21-32) Anion Gap 10 (6-14) Blood Urea Nitrogen 32 mg/dL (8-26) Creatinine 9.5 mg/dL (0.7-1.3) Estimated GFR (Cockcroft-Gault) 5.8 BUN/Creatinine Ratio 3 (6-20) Glucose Level 88 mg/dL (70-99) Lactic Acid Level 0.8 mmol/L (0.4-2.0) Calcium Level 8.2 mg/dL (8.5-10.1) Total Bilirubin 1.4 mg/dL (0.2-1.0) Aspartate Amino Transf (AST/SGOT) 9 U/L (15-37) Alanine Aminotransferase (ALT/SGPT) 10 U/L (16-63) Alkaline Phosphatase 96 U/L (46-116) Troponin I Quantitative < 0.017 ng/mL (0.000-0.055) < 0.017 ng/mL (0.000-0.055) MP-Yyl-Z-Type Natriuretic Peptide > 24546 pg/mL (0-124) Total Protein 6.4 g/dL (6.4-8.2) Albumin 3.2 g/dL (3.4-5.0) Albumin/Globulin Ratio 1.0 (1.0-1.7) O2 Saturation % (92-99) Arterial Blood pH 7.39 (7.35-7.45) Arterial Blood pCO2 at Patient Temp 42 mmHg (35-46) Arterial Blood pO2 at Patient Temp mmHg (75-108) Arterial Blood HCO3 25 mmol/L (21-28) Arterial Blood Base Excess 0 mmol/L (-3-3) FiO2 100 Review All relevant outside records, renal labs, imaging studies, telemetry/EKG's were reviewed. Images Images CXR-- 1. Mild vascular congestion. 2. Bilateral effusions. 3. Atelectasis or infiltrate right lung base. JEN SOSA MD Dec 25, 2019 11:46
--- NOTE | 2019-12-25 11:53 | HP ---
ADMIT DATE: 12/25/2019 CHIEF COMPLAINT: Shortness of breath. HISTORY OF PRESENT ILLNESS: The patient is a pleasant middle-aged male who is on dialysis. He presents with shortness of breath that has been occurring since Tuesday, worse with movement, better with sitting still. While in the ER, he was noted to have some abnormalities on his chest x-ray, suspicious for COVID-19. He also has an elevated BNP of 35,000. We have been checking for COVID, the results are pending. He is now being examined on the COVID-19 floor. PAST MEDICAL HISTORY: End-stage renal disease, hypertension and right chest Port-A-Cath. ALLERGIES: None. FAMILY HISTORY: Diabetes. SOCIAL HISTORY: He smokes. No drinking or drugs. MEDICATIONS: Reviewed, please refer to the MRAD. REVIEW OF SYSTEMS: GENERAL: No history of weight change, weakness or fevers. SKIN: No bruising, hair changes or rashes. EYES: No blurred, double or loss of vision. NOSE AND THROAT: No history of nosebleeds, hoarseness or sore throat. HEART: No history of palpitations, chest pain or shortness of breath on exertion. LUNGS: He complains of shortness of breath. GASTROINTESTINAL: Denies changes in appetite, nausea, vomiting, diarrhea or constipation. GENITOURINARY: No history of frequency, urgency, hesitancy or nocturia. NEUROLOGIC: Denies history of numbness, tingling, tremor or weakness. PSYCHIATRIC: No history of panic, anxiety or depression. ENDOCRINE: No history of heat or cold intolerance, polyuria or polydipsia. EXTREMITIES: Denies muscle weakness, joint pain, pain on walking or stiffness. PHYSICAL EXAMINATION: VITALS: His blood pressure is 217/104. GENERAL: No apparent distress. Alert and oriented. HEENT: Normal cephalic atraumatic, external auditory canals are patent EYES: Extraocular muscles are intact, pupils are equally round and reactive to light and accommodation MUSCULOSKELETAL: Well developed, well nourished, good range of motion ENDOCRINE: No thyromegaly was palpated LYMPHATICS: No cervical chain or axillary nodes were noted HEMATOPOIETIC: No bruising NECK: Supple, no JVD, no thyromegaly was noted. LUNGS: He has bibasilar crackles. HEART: RRR, S1, S2 present. Peripheral pulses intact, no obvious murmurs were noted. ABDOMEN: Soft, nontender. Positive bowel sounds no organomegaly, normal bowel sounds. EXTREMITIES: Without any cyanosis, clubbing, or edema. Pedal pulses intact, Homans sign is negative. NEUROLOGIC: Normal speech, normal tone. A & O x3, moves all extremities, no obvious focal deficits. PSYCHIATRIC: Normal affect, normal mood. Stable. SKIN: No ulcerations or rashes, good skin turgor, no jaundice. VASCULAR: Good capillary refill, neurovascular bundle appears to be intact. LABORATORY DATA: Potassium is 5.2. His BNP is greater than 35,000. BUN 32, creatinine 9.5. Chest x-ray shows infiltrates in the right base and congestion. ASSESSMENT AND PLAN: Respiratory failure, suspect possible COVID-19 with concomitant heart failure (acute on chronic systolic and diastolic). The patient has been admitted to the monitored floor on the COVID-19 unit. Consult Cardiology, consult Nephrology. Home meds, DVT prophylaxis. Full code. PROGNOSIS: Guarded. MARICARMEN BARBA DO DR: JOSUE/lily JOB#: [id number] / [id number]
[2019-12-25] MEDS: CALCIUM ACETATE 667 MG CAPSULE PO SCH ×2 (12:00→17:00)
[2019-12-25] MEDS ORDERED: NON FORMULARY ITEM (Ferric Citrate 2 TAB) PO SCH (12:00)
--- NOTE | 2019-12-25 12:26 | PDOC2 ---
SILVERIO MEYER ROLL MECHANIC 12/25/19 1226: CARDIAC CONSULT DATE OF CONSULT Date of Consult DATE: 12/25/19 TIME: 12:14 REASON FOR CONSULT Reason for Consult: CHF REFERRING PHYSICIAN Referring Physician: Minal SOURCE Source: Chart review, Patient HISTORY OF PRESENT ILLNESS HISTORY OF PRESENT ILLNESS This is a 54 yo male admitted for complains of shortness of breath and cough. Upon admission he was noted with significantly elevated BP. He has been having nonproductive cough with some leg edema. I saw him in the room and he was significantly SOA. His test is pending in regards to covid. He does have hx of cocaine use in the past,. He has not been having any fever or chills. Due to his resopiratory distress I could not confirm details such as compliance and further cocaine use. His .BP is significant high upon admission and unclear if he has skipped his dialysis. PAST MEDICAL HISTORY Cardiovascular: HTN Pulmonary: Pneumonia GI: GERD Heme/Onc: Anemia NOS Renal/: Chronic renal failure Endocrine: Hyperparathyroidism PAST SURGICAL HISTORY Past Surgical History: Other (dialysis cath) SOCIAL HISTORY Smoke: <1 pack per day ALCOHOL: none Lives: with Family CURRENT MEDICATIONS CURRENT MEDICATIONS Current Medications Medications (Trade) Dose Ordered Sig/Neil Route PRN Reason Start Time Stop Time Status Last Admin Dose Admin Labetalol HCl (Normodyne Iv Push) 20 mg 1X ONCE IVP 12/25/19 01:30 12/25/19 01:31 DC 12/25/19 01:27 Ceftriaxone Sodium (Rocephin) 1 gm 1X ONCE IVP 12/25/19 01:45 12/25/19 01:51 DC 12/25/19 02:03 Azithromycin 250 ml @ 250 mls/hr 1X ONCE IV 12/25/19 02:00 12/25/19 02:59 DC 12/25/19 02:03 Nitroglycerin (Nitro-Bid Oint) 1 inch 1X ONCE TP 12/25/19 02:45 12/25/19 03:15 DC 12/25/19 03:05 Furosemide (Lasix) 40 mg 1X ONCE IVP 12/25/19 02:45 12/25/19 03:15 DC 12/25/19 03:05 Ondansetron HCl (Zofran) 4 mg 1X ONCE IVP 12/25/19 02:45 12/25/19 03:15 DC 12/25/19 02:50 Lorazepam (Ativan Inj) 1 mg PRN Q4HRS PRN IVP ANXIETY / AGITATION 12/25/19 02:45 12/25/19 02:50 ALLERGIES ALLERGIES: Coded Allergies: No Known Drug Allergies (Unverified , 08/23/17) ROS Review of System 14 point ROS evaluated with pertinent positives noted per HPI PHYSICAL EXAM General: Alert, severe distress HEENT: Atraumatic Lungs: Other (diminished) Heart: Regular rate (sinus tach) Abdomen: Soft Extremities: Other (1-2+ bilateral LE pitting edema) Skin: No breakdown Neuro: Sensation intact Psych/Mental Status: Other (anxious) MUSCULOSKELETAL: Osteoarthritic changes both hands VITALS/I&O VITALS/I&O: Vital Signs Date Time Temp Pulse Resp B/P (MAP) Pulse Ox O2 Delivery O2 Flow Rate FiO2 12/25/19 11:26 95 Venturi Mask 15.0 12/25/19 10:14 97.7 88 23 212/107 (142) 97.7 LABS Lab: Laboratory Tests Test 12/25/19 01:09 12/25/19 02:44 12/25/19 06:00 White Blood Count 9.6 x10^3/uL (4.0-11.0) Red Blood Count 2.92 x10^6/uL (4.30-5.70) L Hemoglobin 9.6 g/dL (13.0-17.5) L Hematocrit 27.8 % (39.0-53.0) L Mean Corpuscular Volume 95 fL (79-100) Mean Corpuscular Hemoglobin 33 pg (25-35) Mean Corpuscular Hemoglobin Concent 35 g/dL (31-37) Red Cell Distribution Width 15.8 % (11.5-14.5) H Platelet Count 147 x10^3/uL (140-400) Neutrophils (%) (Auto) 74 % (31-73) H Lymphocytes (%) (Auto) 14 % (24-48) L Monocytes (%) (Auto) 6 % (0-9) Eosinophils (%) (Auto) 5 % (0-3) H Basophils (%) (Auto) 1 % (0-3) Neutrophils # (Auto) 7.0 x10^3/uL (1.8-7.7) Lymphocytes # (Auto) 1.3 x10^3/uL (1.0-4.8) Monocytes # (Auto) 0.5 x10^3/uL (0.0-1.1) Eosinophils # (Auto) 0.5 x10^3/uL (0.0-0.7) Basophils # (Auto) 0.1 x10^3/uL (0.0-0.2) Sodium Level 138 mmol/L (136-145) Potassium Level 5.2 mmol/L (3.5-5.1) H Chloride Level 99 mmol/L (98-107) Carbon Dioxide Level 29 mmol/L (21-32) Anion Gap 10 (6-14) Blood Urea Nitrogen 32 mg/dL (8-26) H Creatinine 9.5 mg/dL (0.7-1.3) H Estimated GFR (Cockcroft-Gault) 5.8 BUN/Creatinine Ratio 3 (6-20) L Glucose Level 88 mg/dL (70-99) Lactic Acid Level 0.8 mmol/L (0.4-2.0) Calcium Level 8.2 mg/dL (8.5-10.1) L Total Bilirubin 1.4 mg/dL (0.2-1.0) H Aspartate Amino Transferase (AST) 9 U/L (15-37) L Alanine Aminotransferase (ALT) 10 U/L (16-63) L Alkaline Phosphatase 96 U/L (46-116) Troponin I Quantitative < 0.017 ng/mL (0.000-0.055) < 0.017 ng/mL (0.000-0.055) IL-Fdv-X-Type Natriuretic Peptide > 85504 pg/mL (0-124) H Total Protein 6.4 g/dL (6.4-8.2) Albumin 3.2 g/dL (3.4-5.0) L Albumin/Globulin Ratio 1.0 (1.0-1.7) O2 Saturation % (92-99) Arterial Blood pH 7.39 (7.35-7.45) Arterial Blood pCO2 at Patient Temp 42 mmHg (35-46) Arterial Blood pO2 at Patient Temp mmHg (75-108) Arterial Blood HCO3 25 mmol/L (21-28) Arterial Blood Base Excess 0 mmol/L (-3-3) FiO2 100 Laboratory Tests 12/25/19 01:09 Laboratory Tests 12/25/19 01:09 ECHOCARDIOGRAM ECHOCARDIOGRAM <Conclusion> The left ventricular systolic function is normal. The Ejection Fraction is 55-60%. There is normal LV segmental wall motion. Transmitral Doppler flow pattern is Grade II-pseudonormal filling dynamics. Trace mitral regurgitation. Trace tricuspid regurgitation. There is no evidence of significant pericardial effusion. DATE: 04/09/19 1832 STRESS TEST STRESS TEST Conclusion 1. Regadenoson cardioisotope stress test did not show any evidence of ischemia or infarct. 2. Mild global left ventricle systolic dysfunction with ejection fraction calculated at 44%. 3. Low to intermediate risk for cardiac events. DATE: 07/29/17 1203 ASSESSMENT/PLAN ASSESSMENT/PLAN 1. Acute on chronic respiratory failure with acute CHF: covid pending 2. Malignant HTN 3. Acute on chronic diastolic CHF: Due to above. No EKG changes. 4. HLP 5. ESRD 6. Tobaccoism 7. Hx of cocaine abuse Recommendations 1. Restart home BP meds and titrate up as warranted. Hydralazine IV PRN Increase, norvasc. Will reeval BP med needs pending BP trend post HD 2. Continue with secondary prevention measures 3. Fluid off loading per HD 4. TSH and UDS 5. Smoking cessation 6. ABG , tranfer to ICU, bipap, consult pulmonary KEVIN BUNN MD 12/25/19 1744: CARDIAC CONSULT ASSESSMENT/PLAN ASSESSMENT/PLAN Patient seen and case discussed with nurse practitioner. Agree with above LONG TERM CARE ADMINISTRATOR notes and assessment. Supportive care from a cardiac perspective. Await COVID testing. Continue hemodialysis. SILVERIO MEYER APRN Dec 25, 2019 12:26 KEVIN BUNN MD Dec 25, 2019 17:44
[2019-12-25] MEDS ORDERED: hydrALAZINE 20 MG/ML VIAL. IVP PRN (12:30)
[2019-12-25] MEDS ORDERED: IV NORMAL SALINE 1000ML BAG 1,000 ML IV PRN ×2 (12:42)
[2019-12-25] MEDS ORDERED: diphenhydrAMINE 50 MG/ML VIAL IV PRN ×2 (12:45)
[2019-12-25] MEDS ORDERED: ALBUMIN HUMAN 25% 200 ML IV PRN (12:45)
[2019-12-25] MEDS ORDERED: DIALYSIS PATIENT. MC PRN ×2 (12:45)
[2019-12-25] MEDS ORDERED: MORPHINE SULFATE 2 MG/ML VIAL. IM ONE (13:30)
--- NOTE | 2019-12-25 13:32 | NUR ---
dose of morphine given IV ordered wrong. Pt admitted to room 114 from 6S. Pt RR 46, placed on bipap upon arrival to ICU. EKG and monitor placed on patient. Dialysis notified on patients arrival.
--- NOTE | 2019-12-25 13:37 | NUR ---
Patient had been switched over to 50% venturi mask with help of respiratory therapist. Not long after patient called agronomy instructor light saying he felt like he could not breath, patient placed back on bipap. Patient also diaphoretic & hypertensive. IV hydralazine administered. Dl Nur, cardiology THRESHING MACHINE OPERATOR on floor & ordered for him to be transferred to ICU. Patient moved to room 114 around 1310. Report given at bedside in ICU to ENMA Weeks.
--- NOTE | 2019-12-25 14:00 | PDOC ---
PULMONARY PROGRESS NOTES Vitals Vital Signs Date Time Temp Pulse Resp B/P (MAP) Pulse Ox O2 Delivery O2 Flow Rate FiO2 12/25/19 13:30 96 BiPAP/CPAP 12/25/19 13:30 42 12/25/19 12:58 88 212/107 12/25/19 11:26 15.0 12/25/19 10:14 97.7 97.7 General: Alert, Oriented X4, No acute distress HEENT: Other Lungs: Clear Cardiovascular: S1, S2 Abdomen: Soft, Non-tender Extremities: No Edema Labs Laboratory Tests Test 12/25/19 01:09 12/25/19 02:44 12/25/19 06:00 White Blood Count 9.6 x10^3/uL (4.0-11.0) Red Blood Count 2.92 x10^6/uL (4.30-5.70) Hemoglobin 9.6 g/dL (13.0-17.5) Hematocrit 27.8 % (39.0-53.0) Mean Corpuscular Volume 95 fL (79-100) Mean Corpuscular Hemoglobin 33 pg (25-35) Mean Corpuscular Hemoglobin Concent 35 g/dL (31-37) Red Cell Distribution Width 15.8 % (11.5-14.5) Platelet Count 147 x10^3/uL (140-400) Neutrophils (%) (Auto) 74 % (31-73) Lymphocytes (%) (Auto) 14 % (24-48) Monocytes (%) (Auto) 6 % (0-9) Eosinophils (%) (Auto) 5 % (0-3) Basophils (%) (Auto) 1 % (0-3) Neutrophils # (Auto) 7.0 x10^3/uL (1.8-7.7) Lymphocytes # (Auto) 1.3 x10^3/uL (1.0-4.8) Monocytes # (Auto) 0.5 x10^3/uL (0.0-1.1) Eosinophils # (Auto) 0.5 x10^3/uL (0.0-0.7) Basophils # (Auto) 0.1 x10^3/uL (0.0-0.2) Sodium Level 138 mmol/L (136-145) Potassium Level 5.2 mmol/L (3.5-5.1) Chloride Level 99 mmol/L (98-107) Carbon Dioxide Level 29 mmol/L (21-32) Anion Gap 10 (6-14) Blood Urea Nitrogen 32 mg/dL (8-26) Creatinine 9.5 mg/dL (0.7-1.3) Estimated GFR (Cockcroft-Gault) 5.8 BUN/Creatinine Ratio 3 (6-20) Glucose Level 88 mg/dL (70-99) Lactic Acid Level 0.8 mmol/L (0.4-2.0) Calcium Level 8.2 mg/dL (8.5-10.1) Total Bilirubin 1.4 mg/dL (0.2-1.0) Aspartate Amino Transf (AST/SGOT) 9 U/L (15-37) Alanine Aminotransferase (ALT/SGPT) 10 U/L (16-63) Alkaline Phosphatase 96 U/L (46-116) Troponin I Quantitative < 0.017 ng/mL (0.000-0.055) < 0.017 ng/mL (0.000-0.055) QT-Xfc-P-Type Natriuretic Peptide > 35757 pg/mL (0-124) Total Protein 6.4 g/dL (6.4-8.2) Albumin 3.2 g/dL (3.4-5.0) Albumin/Globulin Ratio 1.0 (1.0-1.7) O2 Saturation % (92-99) Arterial Blood pH 7.39 (7.35-7.45) Arterial Blood pCO2 at Patient Temp 42 mmHg (35-46) Arterial Blood pO2 at Patient Temp mmHg (75-108) Arterial Blood HCO3 25 mmol/L (21-28) Arterial Blood Base Excess 0 mmol/L (-3-3) FiO2 100 Laboratory Tests Test 12/25/19 01:09 12/25/19 02:44 12/25/19 06:00 White Blood Count 9.6 x10^3/uL (4.0-11.0) Red Blood Count 2.92 x10^6/uL (4.30-5.70) Hemoglobin 9.6 g/dL (13.0-17.5) Hematocrit 27.8 % (39.0-53.0) Mean Corpuscular Volume 95 fL (79-100) Mean Corpuscular Hemoglobin 33 pg (25-35) Mean Corpuscular Hemoglobin Concent 35 g/dL (31-37) Red Cell Distribution Width 15.8 % (11.5-14.5) Platelet Count 147 x10^3/uL (140-400) Neutrophils (%) (Auto) 74 % (31-73) Lymphocytes (%) (Auto) 14 % (24-48) Monocytes (%) (Auto) 6 % (0-9) Eosinophils (%) (Auto) 5 % (0-3) Basophils (%) (Auto) 1 % (0-3) Neutrophils # (Auto) 7.0 x10^3/uL (1.8-7.7) Lymphocytes # (Auto) 1.3 x10^3/uL (1.0-4.8) Monocytes # (Auto) 0.5 x10^3/uL (0.0-1.1) Eosinophils # (Auto) 0.5 x10^3/uL (0.0-0.7) Basophils # (Auto) 0.1 x10^3/uL (0.0-0.2) Sodium Level 138 mmol/L (136-145) Potassium Level 5.2 mmol/L (3.5-5.1) Chloride Level 99 mmol/L (98-107) Carbon Dioxide Level 29 mmol/L (21-32) Anion Gap 10 (6-14) Blood Urea Nitrogen 32 mg/dL (8-26) Creatinine 9.5 mg/dL (0.7-1.3) Estimated GFR (Cockcroft-Gault) 5.8 BUN/Creatinine Ratio 3 (6-20) Glucose Level 88 mg/dL (70-99) Lactic Acid Level 0.8 mmol/L (0.4-2.0) Calcium Level 8.2 mg/dL (8.5-10.1) Total Bilirubin 1.4 mg/dL (0.2-1.0) Aspartate Amino Transf (AST/SGOT) 9 U/L (15-37) Alanine Aminotransferase (ALT/SGPT) 10 U/L (16-63) Alkaline Phosphatase 96 U/L (46-116) Troponin I Quantitative < 0.017 ng/mL (0.000-0.055) < 0.017 ng/mL (0.000-0.055) BN-Xdy-F-Type Natriuretic Peptide > 45086 pg/mL (0-124) Total Protein 6.4 g/dL (6.4-8.2) Albumin 3.2 g/dL (3.4-5.0) Albumin/Globulin Ratio 1.0 (1.0-1.7) O2 Saturation % (92-99) Arterial Blood pH 7.39 (7.35-7.45) Arterial Blood pCO2 at Patient Temp 42 mmHg (35-46) Arterial Blood pO2 at Patient Temp mmHg (75-108) Arterial Blood HCO3 25 mmol/L (21-28) Arterial Blood Base Excess 0 mmol/L (-3-3) FiO2 100 Medications Active Scripts Medications Dose Route/Sig Max Daily Dose Days Date Category Hydralazine Hcl 25 Mg Tablet 1 Tab PO BID 12/25/19 Reported Ferric Citrate 210 Mg Tablet 2 Tab PO TIDWMEALS 12/25/19 Reported Pantoprazole Sodium 40 Mg Tablet.dr 40 Mg PO DAILY 12/25/19 Reported Calcium Acetate 667 Mg Tablet 1 Tab PO TIDWMEALS 30 12/25/19 Reported Isosorbide Mononitrate Er (Isosorbide Mononitrate) 30 Mg Tab.er.24h 30 Mg PO DAILY 08/09/17 Rx Atorvastatin Calcium 20 Mg Tablet 20 Mg PO QHS 08/09/17 Rx Carvedilol (Carvedilol) 12.5 Mg Tablet 12.5 Mg PO BIDWMEALS 08/09/17 Rx Amlodipine Besylate 2.5 Mg Tablet 2.5 Mg PO DAILY 08/09/17 Rx Impression . Full note dictated, respiratory failure secondary to pulmonary edema, hypertensive urgency. CELSO MENENDEZ MD Dec 25, 2019 14:00
--- NOTE | 2019-12-25 14:00 | NUR ---
Admission questions answered with help of previous visit since patient unable to talk much due to being short of breath. Patient's son Tyree was notified of patient's transfer to ICU.
[2019-12-25] MEDS: hydrALAZINE 25 MG TABLET PO SCH ×2 (14:01→19:54)
--- NOTE | 2019-12-25 14:02 | NUR ---
Patient given po Norvasc, and po lopressor after consulting with Noemi in dialysis. Patient had been given IV Hydralazine 10mg. Patient to receive dialysis soon (Nurse coming to ICU for dialysis). Patient placed immediately back on bipap after taking po meds.
--- NOTE | 2019-12-25 14:32 | CONS ---
DATE OF CONSULTATION: 12/25/2019 ATTENDING PHYSICIAN: Sinai Fontaine DO REASON FOR CONSULTATION: The patient is seen in Pulmonary consultation at the request of Dr. Fontaine for acute respiratory failure, requiring noninvasive ventilation with BiPAP. HISTORY OF PRESENT ILLNESS: The patient is a 54-year-old male with a history of end-stage renal disease, has not missed dialysis, presented with increasing shortness of breath. Chest x-ray was compatible with pulmonary edema. He is currently in the intensive care unit on BiPAP. I was asked to see him in consultation. The patient denies fever, chills, night sweats. His arterial blood gas revealed a pH of 7.39, PaCO2 of 42, pO2 was not calculated. The patient denies fever, chills, nausea, vomiting. No COVID-19 exposures. PAST MEDICAL HISTORY: End-stage renal disease, hypertension, COPD, tobacco dependent. PAST SURGICAL HISTORY: Previous AV fistula. ALLERGIES: No known drug allergies. FAMILY HISTORY: Diabetes. SOCIAL HISTORY: He smokes. MEDICATIONS: List was reviewed. REVIEW OF SYSTEMS: Unobtainable secondary to the patient's condition. PHYSICAL EXAMINATION: VITAL SIGNS: Stable. O2 saturation was greater than 92%. HEENT: Eyes, the sclerae were nonicteric. NECK: Jugular venous distention was not elevated. No lymphadenopathy. CHEST: Full expansion. LUNGS: Adequate flow with no wheezes. CARDIOVASCULAR: Regular rate and rhythm with S1, S2, no S3. ABDOMEN: Soft, nontender, nondistended. EXTREMITIES: No clubbing, cyanosis or edema. LABORATORY DATA: White count was noted. Hemoglobin and hematocrit were noted. White count was normal. Electrolytes were deranged. BUN and creatinine was elevated. Albumin was low. Chest x-ray as indicated above. IMPRESSION: 1. Acute hypoxemic respiratory failure. 2. Acute pulmonary edema. 3. End-stage renal disease, on hemodialysis. 4. Acute on chronic diastolic heart failure. 5. Chronic obstructive pulmonary disease. 6. Tobacco dependence. 7. Uncontrolled hypertension/hypertensive crisis. PLAN: 1. Continue BiPAP. 2. Emergent hemodialysis. 3. Control blood pressure. May need IV Cardene. 4. Negative fluid overload. 5. The patient instructed on the importance of discontinuing tobacco use. 6. No need for antibiotics or steroids. 7. SARS-CoV-2 testing. CELSO MENENDEZ MD DR: Magali JOB#: [id number] / [id number]
--- NOTE | 2019-12-25 16:56 | NUR ---
SW spoke with RN this morning and reviewed chart. Pt admitted to the 6th floor from the ER but pt transferred to ICU. Pt Covid pending. Pt on BIPAP.
[2019-12-25] MEDS: ATORVASTATIN CALCIUM 20 MG TABLET PO SCH (19:53)
[2019-12-26] VITALS (14 sets, daily range): BP systolic 111–195; BP diastolic 59–102
[2019-12-26] MEDS: hydrALAZINE 25 MG TABLET PO SCH ×2 (08:20→20:06)
[2019-12-26] MEDS: CARVEDILOL 12.5 MG TABLET. PO SCH ×2 (08:21→18:06)
[2019-12-26] MEDS: CALCIUM ACETATE 667 MG CAPSULE PO SCH ×3 (08:21→18:06)
[2019-12-26] MEDS: amLODIPine BESYLATE 10 MG TABLET PO SCH (08:22)
[2019-12-26] MEDS: PANTOPRAZOLE 40 MG TABLET.DR. PO SCH (08:22)
[2019-12-26] MEDS: ISOSORBIDE MONONITRATE ER 30 MG TAB.ER.24H PO SCH (08:23)
--- NOTE | 2019-12-26 08:35 | PDOC ---
PULMONARY PROGRESS NOTES Subjective Patient feels better, denies missing dialysis. Smokes Vitals Vital Signs Date Time Temp Pulse Resp B/P (MAP) Pulse Ox O2 Delivery O2 Flow Rate FiO2 12/26/19 08:23 98 195/97 12/26/19 08:00 19 97 Nasal Cannula 4.0 12/26/19 02:00 98.2 98.2 ROS: No Nausea, No Chest Pain, No Abdominal Pain, No Increase Cough General: Alert, No acute distress Lungs: Clear, Crackles Cardiovascular: S1, S2 Abdomen: Soft, Non-tender Neuro Exam: Alert Extremities: No Edema Skin: Warm Labs Laboratory Tests Test 12/25/19 01:09 12/25/19 02:05 12/25/19 02:44 12/25/19 06:00 White Blood Count 9.6 x10^3/uL (4.0-11.0) Red Blood Count 2.92 x10^6/uL (4.30-5.70) Hemoglobin 9.6 g/dL (13.0-17.5) Hematocrit 27.8 % (39.0-53.0) Mean Corpuscular Volume 95 fL (79-100) Mean Corpuscular Hemoglobin 33 pg (25-35) Mean Corpuscular Hemoglobin Concent 35 g/dL (31-37) Red Cell Distribution Width 15.8 % (11.5-14.5) Platelet Count 147 x10^3/uL (140-400) Neutrophils (%) (Auto) 74 % (31-73) Lymphocytes (%) (Auto) 14 % (24-48) Monocytes (%) (Auto) 6 % (0-9) Eosinophils (%) (Auto) 5 % (0-3) Basophils (%) (Auto) 1 % (0-3) Neutrophils # (Auto) 7.0 x10^3/uL (1.8-7.7) Lymphocytes # (Auto) 1.3 x10^3/uL (1.0-4.8) Monocytes # (Auto) 0.5 x10^3/uL (0.0-1.1) Eosinophils # (Auto) 0.5 x10^3/uL (0.0-0.7) Basophils # (Auto) 0.1 x10^3/uL (0.0-0.2) Sodium Level 138 mmol/L (136-145) Potassium Level 5.2 mmol/L (3.5-5.1) Chloride Level 99 mmol/L (98-107) Carbon Dioxide Level 29 mmol/L (21-32) Anion Gap 10 (6-14) Blood Urea Nitrogen 32 mg/dL (8-26) Creatinine 9.5 mg/dL (0.7-1.3) Estimated GFR (Cockcroft-Gault) 5.8 BUN/Creatinine Ratio 3 (6-20) Glucose Level 88 mg/dL (70-99) Lactic Acid Level 0.8 mmol/L (0.4-2.0) Calcium Level 8.2 mg/dL (8.5-10.1) Total Bilirubin 1.4 mg/dL (0.2-1.0) Aspartate Amino Transf (AST/SGOT) 9 U/L (15-37) Alanine Aminotransferase (ALT/SGPT) 10 U/L (16-63) Alkaline Phosphatase 96 U/L (46-116) Troponin I Quantitative < 0.017 ng/mL (0.000-0.055) < 0.017 ng/mL (0.000-0.055) TM-Rsg-M-Type Natriuretic Peptide > 89316 pg/mL (0-124) Total Protein 6.4 g/dL (6.4-8.2) Albumin 3.2 g/dL (3.4-5.0) Albumin/Globulin Ratio 1.0 (1.0-1.7) Coronavirus (COVID-19)(PCR) Not detected (NOT DETECT.) O2 Saturation % (92-99) Arterial Blood pH 7.39 (7.35-7.45) Arterial Blood pCO2 at Patient Temp 42 mmHg (35-46) Arterial Blood pO2 at Patient Temp mmHg (75-108) Arterial Blood HCO3 25 mmol/L (21-28) Arterial Blood Base Excess 0 mmol/L (-3-3) FiO2 100 Medications Active Scripts Medications Dose Route/Sig Max Daily Dose Days Date Category Hydralazine Hcl 25 Mg Tablet 1 Tab PO BID 12/25/19 Reported Ferric Citrate 210 Mg Tablet 2 Tab PO TIDWMEALS 12/25/19 Reported Pantoprazole Sodium 40 Mg Tablet.dr 40 Mg PO DAILY 12/25/19 Reported Calcium Acetate 667 Mg Tablet 1 Tab PO TIDWMEALS 30 12/25/19 Reported Isosorbide Mononitrate Er (Isosorbide Mononitrate) 30 Mg Tab.er.24h 30 Mg PO DAILY 08/09/17 Rx Atorvastatin Calcium 20 Mg Tablet 20 Mg PO QHS 08/09/17 Rx Carvedilol (Carvedilol) 12.5 Mg Tablet 12.5 Mg PO BIDWMEALS 08/09/17 Rx Amlodipine Besylate 2.5 Mg Tablet 2.5 Mg PO DAILY 08/09/17 Rx Impression . IMPRESSION: 1. Acute hypoxemic respiratory failure. 2. Acute pulmonary edema. 3. End-stage renal disease, on hemodialysis. 4. Acute on chronic diastolic heart failure. 5. Chronic obstructive pulmonary disease. 6. Tobacco dependence. 7. Uncontrolled hypertension/hypertensive crisis. 8. SARS-CoV-2 negative 9. tobacco dependent Plan . Better after dialysis PRN BiPAP Oxygen supplementation Control blood pressure Discontinue tobacco use Home with metered-dose inhalers possible oxygen CELSO MENENDEZ MD Dec 26, 2019 08:35
--- NOTE | 2019-12-26 10:39 | PDOC ---
SUBJECTIVE ROS Better, Off Bipap OBJECTIVE Vital Signs Vital Signs Date Time Temp Pulse Resp B/P (MAP) Pulse Ox O2 Delivery O2 Flow Rate FiO2 12/26/19 10:00 79 16 116/61 (79) 92 Room Air 12/26/19 08:00 4.0 12/26/19 02:00 98.2 98.2 I & 0 Intake and Output 12/26/19 07:00 Intake Total 460 ml Output Total 0 ml Balance 460 ml Intake Oral 460 ml Output Urine Total 0 ml PHYSICAL EXAM Physical Exam GEN: NAD HEEN: On O2 by AR NECK: supple CVS: S1S2, RESP: Decreased at bases GI: BS + ve, Non Tender, : No CVA tenderness, No Suprapubic Tenderness NEURO- Grossly normal EXT -LE edema + DIAGNOSIS/ASSESSMENT Assessment & Plan ESRD.- On HD TTS Dialyzed yesterday , Currently No indication today UF 4-5 lts HyperKalemia- mild, at presentation HTN- Cardiology consulted, home BP meds Anemia - Hgb <10, hold off MARIA R 2/2 very high BP Acute on chronic respiratory failure- On O2 by AR, UF 4-5 yesterday CoVid x1 Negative Acute on chronic diastolic CHF Hx of cocaine abuse- UDS not done COMMENT/RELEVANT DATA Meds Current Medications Medications (Trade) Dose Ordered Sig/Neil Start Time Stop Time Status Last Admin Dose Admin Albumin Human 200 ml @ 200 mls/hr 1X PRN PRN 12/25/19 12:45 12/25/19 18:44 DC Amlodipine Besylate (Norvasc) 10 mg DAILY 12/26/19 09:00 12/26/19 08:22 10 MG Atorvastatin Calcium (Lipitor) 20 mg QHS 12/25/19 21:00 12/25/19 19:53 20 MG Azithromycin 250 ml @ 250 mls/hr 1X ONCE 12/25/19 02:00 12/25/19 02:59 DC 12/25/19 02:03 250 MLS/HR Calcium Acetate (Phoslo) 667 mg TIDWMEALS 12/25/19 12:00 12/26/19 08:21 667 MG Carvedilol (Coreg) 12.5 mg BIDWMEALS 12/25/19 11:00 12/26/19 08:21 12.5 MG Ceftriaxone Sodium (Rocephin) 1 gm 1X ONCE 12/25/19 01:45 12/25/19 01:51 DC 12/25/19 02:03 1 GM Diphenhydramine HCl (Benadryl) 25 mg 1X PRN PRN 12/25/19 12:45 12/26/19 12:44 Furosemide (Lasix) 40 mg 1X ONCE 12/25/19 02:45 12/25/19 03:15 DC 12/25/19 03:05 40 MG Hydralazine HCl (Apresoline Inj) 10 mg PRN Q4HRS PRN 12/25/19 12:30 12/25/19 12:58 10 MG Hydralazine HCl (Apresoline) 25 mg BID 12/25/19 11:00 12/26/19 08:20 25 MG Info (PHARMACY MONITORING -- do not chart) 1 each PRN DAILY PRN 12/25/19 12:45 Isosorbide Mononitrate (Imdur) 30 mg DAILY 12/25/19 11:00 12/26/19 08:23 30 MG Labetalol HCl (Normodyne Iv Push) 20 mg 1X ONCE 12/25/19 01:30 12/25/19 01:31 DC 12/25/19 01:27 20 MG Lorazepam (Ativan Inj) 2 mg STK-MED ONCE 12/25/19 02:41 12/25/19 02:42 DC Morphine Sulfate (Morphine Sulfate) 2 mg 1X ONCE 12/25/19 13:30 12/25/19 13:31 DC 12/25/19 13:30 2 MG Nitroglycerin (Nitro-Bid Oint) 1 inch 1X ONCE 12/25/19 02:45 12/25/19 03:15 DC 12/25/19 03:05 1 INCH Non-Formulary Medication (Ferric Citrate ) 2 tab TIDWMEALS 12/25/19 12:00 UNV Ondansetron HCl (Zofran) 4 mg STK-MED ONCE 12/25/19 02:41 12/25/19 02:41 DC Pantoprazole Sodium (Protonix) 40 mg DAILY 12/25/19 11:00 12/26/19 08:22 40 MG Sodium Chloride 1,000 ml @ 400 mls/hr Q2H30M PRN 12/25/19 12:42 12/26/19 00:41 DC Results All relevant outside records, renal labs, imaging studies, telemetry/EKG's were reviewed. Justicifation of Admission Dx: Justifications for Admission: Justification of Admission Dx: N/A JEN SOSA MD Dec 26, 2019 10:39
--- NOTE | 2019-12-26 14:20 | PDOC ---
SILVERIO MEYER CANVAS WORKER 12/26/19 1420: CARDIO Progress Notes Date and Time Date of Service 12/26/2019 Time of Evaluation 1150 Subjective Subjective: No Chest Pain, No shortness of breath, No Palpitations Vitals Vitals Vital Signs Date Time Temp Pulse Resp B/P (MAP) Pulse Ox O2 Delivery O2 Flow Rate FiO2 12/26/19 13:00 82 24 130/77 (94) 98 Room Air 12/26/19 08:00 4.0 12/26/19 02:00 98.2 98.2 Weight Weight [ ] Input and Output Intake and Output Intake and Output 12/26/19 07:00 Intake Total 460 ml Output Total 0 ml Balance 460 ml Intake Oral 460 ml Output Urine Total 0 ml Microbiology Micro Microbiology 12/25/19 Blood Culture - Preliminary, Resulted NO GROWTH AFTER 1 DAY Physical Exam HEENT: Neck Supple W Full Motion Chest: Symmetric LUNGS: Other (basilar crackles) Heart: S1S2, RRR (SR no ectopies) Abdomen: Soft N/T Extremities: No Calf Tenderness Neurology: alert, oriented, follow commands Assessment Assessment 1. Acute on chronic respiratory failure with acute CHF: covid neg. likely in duced by uncontrolled HTN with continued cocaine use 2. Malignant HTN: controlled with current regimen 3. Acute on chronic diastolic CHF: Due to above. No EKG changes. 4. HLP 5. ESRD 6. Tobaccoism 7. Cocaine abuse: reported at least weekly use Recommendations 1. Off bipap much better today 5 L off yesterday. Continue fluid off loading per HD 2. Continue with secondary prevention measures 3. Continue with current BP regimen 4. TSH and UDSSmoking and cocaine cessation advised 5. Anticipate DC tomorrow. HBPM, follow up in office. Justicifation of Admission Dx: Justifications for Admission: Justification of Admission Dx: N/A KEVIN BUNN MD 12/27/19 0922: CARDIO Progress Notes Plan Plan Late entry for 12/26/2019 Pt. seen and examined. Agree with above HOME OFFICE REPRESENTATIVE note. Discussed with him regarding polysubstance abuse Discussed with family at bedside. SILVERIO MEYER APRN Dec 26, 2019 14:20 KEVIN BUNN MD Dec 27, 2019 09:22
--- NOTE | 2019-12-26 14:28 | NUR ---
SS following for discharge planning. SS reviewed pt chart and discussed with pt RN. Pt is from home and is currently on room air. Pt COVID19 negative. Pt has outpatient dialysis at [facility], ; fax [phone], Tuesday, , and Tuesday. Pt transferred to room 658. Marianna DIEHL, notified.
--- NOTE | 2019-12-26 14:31 | NUR ---
pt transferred to 658. report given to ENMA Vaz. Pt on 3L NC and stable condition upon transfer.
--- NOTE | 2019-12-26 15:09 | PDOC ---
PROGRESS NOTES Chief Complaint Chief Complaint acute hypoxic Respiratory failure, suspect possible COVID-19 acute on chronic systolic and diastolic CHF ESRD on HD tobacco use disorder History of Present Illness History of Present Illness breathing easier, to 6th floor, tele, CV and pulm following Vitals Vitals Vital Signs Date Time Temp Pulse Resp B/P (MAP) Pulse Ox O2 Delivery O2 Flow Rate FiO2 12/26/19 13:00 82 24 130/77 (94) 98 Room Air 12/26/19 08:00 4.0 12/26/19 02:00 98.2 98.2 Physical Exam General: Alert, severe distress Heart: Regular rate (sinus tach) Lungs: Clear, Crackles Abdomen: Soft Extremities: Other (1-2+ bilateral LE pitting edema) Skin: No breakdown Assessment and Plan Assessmemt and Plan Problems Medical Problems: (1) Pneumonia Status: Acute Comment Review of Relevant I have reviewed the following items sara (where applicable) has been applied. Labs Laboratory Tests Test 12/25/19 01:09 12/25/19 02:05 12/25/19 02:44 12/25/19 06:00 White Blood Count 9.6 x10^3/uL (4.0-11.0) Red Blood Count 2.92 x10^6/uL (4.30-5.70) Hemoglobin 9.6 g/dL (13.0-17.5) Hematocrit 27.8 % (39.0-53.0) Mean Corpuscular Volume 95 fL (79-100) Mean Corpuscular Hemoglobin 33 pg (25-35) Mean Corpuscular Hemoglobin Concent 35 g/dL (31-37) Red Cell Distribution Width 15.8 % (11.5-14.5) Platelet Count 147 x10^3/uL (140-400) Neutrophils (%) (Auto) 74 % (31-73) Lymphocytes (%) (Auto) 14 % (24-48) Monocytes (%) (Auto) 6 % (0-9) Eosinophils (%) (Auto) 5 % (0-3) Basophils (%) (Auto) 1 % (0-3) Neutrophils # (Auto) 7.0 x10^3/uL (1.8-7.7) Lymphocytes # (Auto) 1.3 x10^3/uL (1.0-4.8) Monocytes # (Auto) 0.5 x10^3/uL (0.0-1.1) Eosinophils # (Auto) 0.5 x10^3/uL (0.0-0.7) Basophils # (Auto) 0.1 x10^3/uL (0.0-0.2) Sodium Level 138 mmol/L (136-145) Potassium Level 5.2 mmol/L (3.5-5.1) Chloride Level 99 mmol/L (98-107) Carbon Dioxide Level 29 mmol/L (21-32) Anion Gap 10 (6-14) Blood Urea Nitrogen 32 mg/dL (8-26) Creatinine 9.5 mg/dL (0.7-1.3) Estimated GFR (Cockcroft-Gault) 5.8 BUN/Creatinine Ratio 3 (6-20) Glucose Level 88 mg/dL (70-99) Lactic Acid Level 0.8 mmol/L (0.4-2.0) Calcium Level 8.2 mg/dL (8.5-10.1) Total Bilirubin 1.4 mg/dL (0.2-1.0) Aspartate Amino Transf (AST/SGOT) 9 U/L (15-37) Alanine Aminotransferase (ALT/SGPT) 10 U/L (16-63) Alkaline Phosphatase 96 U/L (46-116) Troponin I Quantitative < 0.017 ng/mL (0.000-0.055) < 0.017 ng/mL (0.000-0.055) EA-Bnz-D-Type Natriuretic Peptide > 46072 pg/mL (0-124) Total Protein 6.4 g/dL (6.4-8.2) Albumin 3.2 g/dL (3.4-5.0) Albumin/Globulin Ratio 1.0 (1.0-1.7) Coronavirus (COVID-19)(PCR) Not detected (NOT DETECT.) O2 Saturation % (92-99) Arterial Blood pH 7.39 (7.35-7.45) Arterial Blood pCO2 at Patient Temp 42 mmHg (35-46) Arterial Blood pO2 at Patient Temp mmHg (75-108) Arterial Blood HCO3 25 mmol/L (21-28) Arterial Blood Base Excess 0 mmol/L (-3-3) FiO2 100 Microbiology 12/25/19 Blood Culture - Preliminary, Resulted NO GROWTH AFTER 1 DAY Medications Current Medications Labetalol HCl (Normodyne Iv Push) 20 mg 1X ONCE IVP Last administered on 12/25/19at 01:27; Start 12/25/19 at 01:30; Stop 12/25/19 at 01:31; Status DC Ceftriaxone Sodium (Rocephin) 1 gm 1X ONCE IVP Last administered on 12/25/19at 02:03; Start 12/25/19 at 01:45; Stop 12/25/19 at 01:51; Status DC Azithromycin 250 ml @ 250 mls/hr 1X ONCE IV Last administered on 12/25/19at 02:03; Start 12/25/19 at 02:00; Stop 12/25/19 at 02:59; Status DC Nitroglycerin (Nitro-Bid Oint) 1 inch 1X ONCE TP Last administered on 12/25/19at 03:05; Start 12/25/19 at 02:45; Stop 12/25/19 at 03:15; Status DC Furosemide (Lasix) 40 mg 1X ONCE IVP Last administered on 12/25/19at 03:05; Start 12/25/19 at 02:45; Stop 12/25/19 at 03:15; Status DC Ondansetron HCl (Zofran) 4 mg 1X ONCE IVP Last administered on 12/25/19at 02:50; Start 12/25/19 at 02:45; Stop 12/25/19 at 03:15; Status DC Lorazepam (Ativan Inj) 1 mg PRN Q4HRS PRN IVP ANXIETY / AGITATION Last administered on 12/25/19at 02:50; Start 12/25/19 at 02:45 Ondansetron HCl (Zofran) 4 mg STK-MED ONCE .ROUTE ; Start 12/25/19 at 02:41; Stop 12/25/19 at 02:41; Status DC Lorazepam (Ativan Inj) 2 mg STK-MED ONCE .ROUTE ; Start 12/25/19 at 02:41; Stop 12/25/19 at 02:42; Status DC Atorvastatin Calcium (Lipitor) 20 mg QHS PO Last administered on 12/25/19at 19:53; Start 12/25/19 at 21:00 Carvedilol (Coreg) 12.5 mg BIDWMEALS PO Last administered on 12/26/19at 08:21; Start 12/25/19 at 11:00 Hydralazine HCl (Apresoline) 25 mg BID PO Last administered on 12/26/19at 08:20; Start 12/25/19 at 11:00 Isosorbide Mononitrate (Imdur) 30 mg DAILY PO Last administered on 12/26/19at 08:23; Start 12/25/19 at 11:00 Pantoprazole Sodium (Protonix) 40 mg DAILY PO Last administered on 12/26/19at 08:22; Start 12/25/19 at 11:00 Amlodipine Besylate (Norvasc) 2.5 mg DAILY PO Last administered on 12/25/19at 14:02; Start 12/25/19 at 11:00; Stop 12/25/19 at 14:46; Status DC Calcium Acetate (Phoslo) 667 mg TIDWMEALS PO Last administered on 12/26/19at 12:17; Start 12/25/19 at 12:00 Non-Formulary Medication (Ferric Citrate ) 2 tab TIDWMEALS PO ; Start 12/25/19 at 12:00; Status UNV Hydralazine HCl (Apresoline Inj) 10 mg PRN Q4HRS PRN IVP ELEVATED BP, SEE COMMENTS Last administered on 12/25/19at 12:58; Start 12/25/19 at 12:30 Sodium Chloride 1,000 ml @ 1,000 mls/hr Q1H PRN IV hypotension; Start 12/25/19 at 12:42; Stop 12/25/19 at 18:41; Status DC Albumin Human 200 ml @ 200 mls/hr 1X PRN PRN IV Hypotension; Start 12/25/19 at 12:45; Stop 12/25/19 at 18:44; Status DC Diphenhydramine HCl (Benadryl) 25 mg 1X PRN PRN IV ITCHING; Start 12/25/19 at 12:45; Stop 12/26/19 at 12:44; Status DC Diphenhydramine HCl (Benadryl) 25 mg 1X PRN PRN IV ITCHING; Start 12/25/19 at 12:45; Stop 12/26/19 at 12:44; Status DC Sodium Chloride 1,000 ml @ 400 mls/hr Q2H30M PRN IV PATENCY; Start 12/25/19 at 12:42; Stop 12/26/19 at 00:41; Status DC Info (PHARMACY MONITORING -- do not chart) 1 each PRN DAILY PRN MC SEE COMMENTS; Start 12/25/19 at 12:45; Status UNV Info (PHARMACY MONITORING -- do not chart) 1 each PRN DAILY PRN MC SEE COM MENTS; Start 12/25/19 at 12:45 Morphine Sulfate (Morphine Sulfate) 2 mg 1X ONCE IM Last administered on 12/25/19at 13:30; Start 12/25/19 at 13:30; Stop 12/25/19 at 13:31; Status DC Amlodipine Besylate (Norvasc) 10 mg DAILY PO Last administered on 12/26/19at 08:22; Start 12/26/19 at 09:00 Active Scripts Active Isosorbide Mononitrate Er (Isosorbide Mononitrate) 30 Mg Tab.er.24h 30 Mg PO DAILY Atorvastatin Calcium 20 Mg Tablet 20 Mg PO QHS Carvedilol (Carvedilol) 12.5 Mg Tablet 12.5 Mg PO BIDWMEALS Amlodipine Besylate 2.5 Mg Tablet 2.5 Mg PO DAILY Reported Hydralazine Hcl 25 Mg Tablet 1 Tab PO BID Ferric Citrate 210 Mg Tablet 2 Tab PO TIDWMEALS Pantoprazole Sodium 40 Mg Tablet.dr 40 Mg PO DAILY Calcium Acetate 667 Mg Tablet 1 Tab PO TIDWMEALS 30 Days Vitals/I & O Vital Sign - Last 24 Hours 12/25/19 12/25/19 12/25/19 12/25/19 16:00 16:38 17:00 18:00 Pulse 87 93 B/P (MAP) 147/86 (106) 86/65 (72) 149/91 (110) Pulse Ox 100 100 97 O2 Delivery BiPAP/CPAP BiPAP/CPAP BiPAP/CPAP 12/25/19 12/25/19 12/25/19 12/25/19 19:00 19:00 19:54 20:00 Pulse 95 95 Resp 22 18 B/P (MAP) 184/97 (126) 184/97 Pulse Ox 99 99 O2 Delivery BiPAP/CPAP Room Air Room Air 12/25/19 12/25/19 12/25/19 12/26/19 21:00 22:00 23:00 00:00 Temp 97.6 97.6 Pulse 88 92 94 Resp 23 22 22 B/P (MAP) 177/87 (117) 166/79 (108) 154/73 (100) Pulse Ox 93 99 99 O2 Delivery Nasal Cannula Nasal Cannula Nasal Cannula Nasal Cannula O2 Flow Rate 4.0 4.0 4.0 12/26/19 12/26/19 12/26/19 12/26/19 00:00 02:00 03:00 04:00 Temp 98.2 98.2 Pulse 94 85 83 Resp 17 19 18 B/P (MAP) 155/73 (100) 162/76 (104) 140/59 (86) Pulse Ox 99 100 99 O2 Delivery Nasal Cannula Nasal Cannula Nasal Cannula Room Air O2 Flow Rate 4.0 4.0 4.0 12/26/19 12/26/19 12/26/19 12/26/19 04:59 06:00 07:00 08:00 Pulse 87 79 88 Resp 18 18 27 B/P (MAP) 184/102 (129) 186/83 (117) 194/90 (124) Pulse Ox 99 99 96 O2 Delivery Nasal Cannula Nasal Cannula Nasal Cannula Room Air O2 Flow Rate 4.0 4.0 4.0 12/26/19 12/26/19 12/26/19 12/26/19 08:00 08:20 08:21 08:22 Pulse 87 92 98 93 Resp 19 B/P (MAP) 195/97 (129) 195/97 195/90 195/90 Pulse Ox 97 O2 Delivery Nasal Cannula O2 Flow Rate 4.0 12/26/19 12/26/19 12/26/19 12/26/19 08:23 09:00 10:00 11:00 Pulse 98 82 79 73 Resp 19 16 16 B/P (MAP) 195/97 146/70 (95) 116/61 (79) 111/61 (78) Pulse Ox 93 92 97 O2 Delivery Room Air Room Air Room Air 12/26/19 12/26/19 12:02 13:00 Pulse 83 82 Resp 35 24 B/P (MAP) 128/67 (87) 130/77 (94) Pulse Ox 92 98 O2 Delivery Room Air Room Air Intake and Output 12/25/19 12/25/19 12/26/19 15:00 23:00 07:00 Intake Total 230 ml 230 ml Output Total 0 ml 0 ml Balance 230 ml 230 ml BUZZ VAZ MD Dec 26, 2019 15:09
[2019-12-26] MEDS: ATORVASTATIN CALCIUM 20 MG TABLET PO SCH (20:05)
[2019-12-27 02:31] VITALS: BP 163/77
[2019-12-27 03:46] LABS: CALCIUM 8.3 mg/dL (8.5-10.1); CREATININE 9.5 mg/dL (0.7-1.3); GFR 5.8; POTASSIUM 4.3 mmol/L (3.5-5.1)
--- NOTE | 2019-12-27 07:35 | NUR ---
Patient off floor for dialysis.
[2019-12-27 07:44] VITALS: BP 151/68
[2019-12-27] MEDS: CALCIUM ACETATE 667 MG CAPSULE PO SCH ×2 (07:54→12:00)
[2019-12-27] MEDS: CARVEDILOL 12.5 MG TABLET. PO SCH (07:54)
[2019-12-27] MEDS: hydrALAZINE 25 MG TABLET PO SCH (07:55)
[2019-12-27] MEDS: ISOSORBIDE MONONITRATE ER 30 MG TAB.ER.24H PO SCH (07:55)
[2019-12-27] MEDS: amLODIPine BESYLATE 10 MG TABLET PO SCH (07:55)
[2019-12-27] MEDS: PANTOPRAZOLE 40 MG TABLET.DR. PO SCH (07:56)
[2019-12-27] MEDS ORDERED: IV NORMAL SALINE 1000ML BAG 1,000 ML IV PRN ×2 (08:06)
[2019-12-27] MEDS ORDERED: DIALYSIS PATIENT. MC PRN (08:15)
[2019-12-27] MEDS ORDERED: ALBUMIN HUMAN 25% 200 ML IV PRN (08:15)
[2019-12-27] MEDS ORDERED: diphenhydrAMINE 50 MG/ML VIAL IV PRN ×2 (08:15)
--- NOTE | 2019-12-27 09:34 | PDOC ---
PULMONARY PROGRESS NOTES Subjective Patient feels better, denies missing dialysis. Smokes Vitals Vital Signs Date Time Temp Pulse Resp B/P (MAP) Pulse Ox O2 Delivery O2 Flow Rate FiO2 12/27/19 07:55 85 151/68 12/27/19 07:44 98.1 17 94 Room Air 98.1 12/26/19 08:00 4.0 ROS: No Nausea, No Chest Pain, No Abdominal Pain, No Increase Cough General: Alert, No acute distress Lungs: Clear, Crackles Cardiovascular: S1, S2 Abdomen: Soft, Non-tender Neuro Exam: Alert Extremities: No Edema Skin: Warm Labs Laboratory Tests Test 12/27/19 02:40 Sodium Level 139 mmol/L (136-145) Potassium Level 4.3 mmol/L (3.5-5.1) Chloride Level 98 mmol/L (98-107) Carbon Dioxide Level 30 mmol/L (21-32) Anion Gap 11 (6-14) Blood Urea Nitrogen 45 mg/dL (8-26) Creatinine 9.5 mg/dL (0.7-1.3) Estimated GFR (Cockcroft-Gault) 5.8 Glucose Level 75 mg/dL (70-99) Calcium Level 8.3 mg/dL (8.5-10.1) Laboratory Tests Test 12/27/19 02:40 Sodium Level 139 mmol/L (136-145) Potassium Level 4.3 mmol/L (3.5-5.1) Chloride Level 98 mmol/L (98-107) Carbon Dioxide Level 30 mmol/L (21-32) Anion Gap 11 (6-14) Blood Urea Nitrogen 45 mg/dL (8-26) Creatinine 9.5 mg/dL (0.7-1.3) Estimated GFR (Cockcroft-Gault) 5.8 Glucose Level 75 mg/dL (70-99) Calcium Level 8.3 mg/dL (8.5-10.1) Medications Active Scripts Medications Dose Route/Sig Max Daily Dose Days Date Category Hydralazine Hcl 25 Mg Tablet 1 Tab PO BID 12/25/19 Reported Ferric Citrate 210 Mg Tablet 2 Tab PO TIDWMEALS 12/25/19 Reported Pantoprazole Sodium 40 Mg Tablet.dr 40 Mg PO DAILY 12/25/19 Reported Calcium Acetate 667 Mg Tablet 1 Tab PO TIDWMEALS 30 12/25/19 Reported Isosorbide Mononitrate Er (Isosorbide Mononitrate) 30 Mg Tab.er.24h 30 Mg PO DAILY 08/09/17 Rx Atorvastatin Calcium 20 Mg Tablet 20 Mg PO QHS 08/09/17 Rx Carvedilol (Carvedilol) 12.5 Mg Tablet 12.5 Mg PO BIDWMEALS 08/09/17 Rx Amlodipine Besylate 2.5 Mg Tablet 2.5 Mg PO DAILY 08/09/17 Rx Impression . IMPRESSION: 1. Acute hypoxemic respiratory failure. 2. Acute pulmonary edema. 3. End-stage renal disease, on hemodialysis. 4. Acute on chronic diastolic heart failure. 5. Chronic obstructive pulmonary disease. 6. Tobacco dependence. 7. Uncontrolled hypertension/hypertensive crisis. 8. SARS-CoV-2 negative 9. tobacco dependent Plan . Patient instructed on the importance of discontinue tobacco Discharge today CELSO MENENDEZ MD Dec 27, 2019 09:34
--- NOTE | 2019-12-27 10:37 | PDOC ---
SUBJECTIVE ROS No complaints, seen on HD OBJECTIVE Vital Signs Vital Signs Date Time Temp Pulse Resp B/P (MAP) Pulse Ox O2 Delivery O2 Flow Rate FiO2 12/27/19 07:55 85 151/68 12/27/19 07:44 98.1 17 94 Room Air 98.1 12/26/19 08:00 4.0 I & 0 l Intake and Output 12/27/19 07:00 Intake Total 800 ml Output Total 0 ml Balance 800 ml Intake Oral 800 ml Output Urine Total 0 ml # Bowel Movements 1 PHYSICAL EXAM Physical Exam GEN: NAD HEEN OM moist NECK: supple CVS: S1S2, RESP: Decreased at bases GI: BS + ve, Non Tender, : No CVA tenderness, No Suprapubic Tenderness NEURO- Grossly normal EXT -LE edema + DIAGNOSIS/ASSESSMENT Assessment & Plan ESRD.- On HD TTS Seen on HD, tolerating well, Discussed treatment plan with [facility] HyperKalemia- mild, at presentation Normal today HTN- Cardiology consulted, home BP meds Anemia - Hgb <10, MARIA R held 2/2 high BP Acute on chronic respiratory failure- On O2 by NC, UF 4-5 yesterday CoVid x1 Negative Acute on chronic diastolic CHF Hx of cocaine abuse COMMENT/RELEVANT DATA Meds Current Medications Medications (Trade) Dose Ordered Sig/Neil Start Time Stop Time Status Last Admin Dose Admin Albumin Human 200 ml @ 200 mls/hr 1X PRN PRN 12/27/19 08:15 12/27/19 14:14 Amlodipine Besylate (Norvasc) 10 mg DAILY 12/26/19 09:00 12/26/19 08:22 10 MG Atorvastatin Calcium (Lipitor) 20 mg QHS 12/25/19 21:00 12/26/19 20:05 20 MG Azithromycin 250 ml @ 250 mls/hr 1X ONCE 12/25/19 02:00 12/25/19 02:59 DC 12/25/19 02:03 250 MLS/HR Calcium Acetate (Phoslo) 667 mg TIDWMEALS 12/25/19 12:00 12/26/19 18:06 667 MG Carvedilol (Coreg) 12.5 mg BIDWMEALS 12/25/19 11:00 12/26/19 18:06 12.5 MG Ceftriaxone Sodium (Rocephin) 1 gm 1X ONCE 12/25/19 01:45 12/25/19 01:51 DC 12/25/19 02:03 1 GM Diphenhydramine HCl (Benadryl) 25 mg 1X PRN PRN 12/27/19 08:15 12/28/19 08:14 Furosemide (Lasix) 40 mg 1X ONCE 12/25/19 02:45 12/25/19 03:15 DC 12/25/19 03:05 40 MG Hydralazine HCl (Apresoline Inj) 10 mg PRN Q4HRS PRN 12/25/19 12:30 12/25/19 12:58 10 MG Hydralazine HCl (Apresoline) 25 mg BID 12/25/19 11:00 12/26/19 20:06 25 MG Info (PHARMACY MONITORING -- do not chart) 1 each PRN DAILY PRN 12/27/19 08:15 Isosorbide Mononitrate (Imdur) 30 mg DAILY 12/25/19 11:00 12/26/19 08:23 30 MG Labetalol HCl (Normodyne Iv Push) 20 mg 1X ONCE 12/25/19 01:30 12/25/19 01:31 DC 12/25/19 01:27 20 MG Lorazepam (Ativan Inj) 2 mg STK-MED ONCE 12/25/19 02:41 12/25/19 02:42 DC Morphine Sulfate (Morphine Sulfate) 2 mg 1X ONCE 12/25/19 13:30 12/25/19 13:31 DC 12/25/19 13:30 2 MG Nitroglycerin (Nitro-Bid Oint) 1 inch 1X ONCE 12/25/19 02:45 12/25/19 03:15 DC 12/25/19 03:05 1 INCH Non-Formulary Medication (Ferric Citrate ) 2 tab TIDWMEALS 12/25/19 12:00 UNV Ondansetron HCl (Zofran) 4 mg STK-MED ONCE 12/25/19 02:41 12/25/19 02:41 DC Pantoprazole Sodium (Protonix) 40 mg DAILY 12/25/19 11:00 12/26/19 08:22 40 MG Sodium Chloride 1,000 ml @ 400 mls/hr Q2H30M PRN 12/27/19 08:06 12/27/19 20:05 Lab Laboratory Tests Test 12/27/19 02:40 Sodium Level 139 mmol/L (136-145) Potassium Level 4.3 mmol/L (3.5-5.1) Chloride Level 98 mmol/L (98-107) Carbon Dioxide Level 30 mmol/L (21-32) Anion Gap 11 (6-14) Blood Urea Nitrogen 45 mg/dL (8-26) Creatinine 9.5 mg/dL (0.7-1.3) Estimated GFR (Cockcroft-Gault) 5.8 Glucose Level 75 mg/dL (70-99) Calcium Level 8.3 mg/dL (8.5-10.1) Results All relevant outside records, renal labs, imaging studies, telemetry/EKG's were reviewed. Justicifation of Admission Dx: Justifications for Admission: Justification of Admission Dx: N/A JEN SOSA MD Dec 27, 2019 10:37
--- NOTE | 2019-12-27 11:29 | PDOC ---
SILVERIO MEYER [employer] 12/27/19 1129: CARDIO Progress Notes Date and Time Date of Service 12/27/2019 Time of Evaluation 0950 Subjective Subjective: No Chest Pain, No shortness of breath, No Palpitations Vitals Vitals Vital Signs Date Time Temp Pulse Resp B/P (MAP) Pulse Ox O2 Delivery O2 Flow Rate FiO2 12/27/19 07:55 85 151/68 12/27/19 07:44 98.1 17 94 Room Air 98.1 12/26/19 08:00 4.0 Weight Weight [ ] Input and Output Intake and Output Intake and Output 12/27/19 07:00 Intake Total 800 ml Output Total 0 ml Balance 800 ml Intake Oral 800 ml Output Urine Total 0 ml # Bowel Movements 1 Laboratory Labs Laboratory Tests Test 12/27/19 02:40 Sodium Level 139 mmol/L (136-145) Potassium Level 4.3 mmol/L (3.5-5.1) Chloride Level 98 mmol/L (98-107) Carbon Dioxide Level 30 mmol/L (21-32) Anion Gap 11 (6-14) Blood Urea Nitrogen 45 mg/dL (8-26) Creatinine 9.5 mg/dL (0.7-1.3) Estimated GFR (Cockcroft-Gault) 5.8 Glucose Level 75 mg/dL (70-99) Calcium Level 8.3 mg/dL (8.5-10.1) Microbiology Micro Microbiology 12/25/19 Blood Culture - Preliminary, Resulted NO GROWTH AFTER 2 DAYS Physical Exam HEENT: Neck Supple W Full Motion Chest: Symmetric LUNGS: Other (diminished) Heart: S1S2, RRR (SR no ectopies) Abdomen: Soft N/T Extremities: No Calf Tenderness Neurology: alert, oriented, follow commands Assessment Assessment 1. Acute on chronic respiratory failure with acute CHF: covid neg. likely induced by uncontrolled HTN with continued cocaine use 2. Malignant HTN: controlled with current regimen 3. Acute on chronic diastolic CHF: Due to above. compensated 4. HLP 5. ESRD 6. Tobaccoism 7. Cocaine abuse: reported at least weekly use Recommendations 1. Off bipap much better today 5 L off yesterday. Continue fluid off loading per HD 2. Continue with secondary prevention measures 3. Continue with current BP regimen 4. Smoking and cocaine cessation advised 5. Anticipate DC tomorrow. [facility], Follow up with Dr. Bunn on February 26 at 1015 AM Justicifation of Admission Dx: Justifications for Admission: Justification of Admission Dx: N/A KEVIN BUNN MD 12/27/19 1618: CARDIO Progress Notes Plan Plan Patient seen and examined. Agree with above nurse practitioner note. Case discussed with nursing staff at bedside. His medication reconciliation was completed. We will plan for follow-up in the office. SILVERIO MEYER APRN Dec 27, 2019 11:29 KEVIN BUNN MD Dec 27, 2019 16:18
--- NOTE | 2019-12-27 12:00 | NUR ---
SS following up with discharge planning. SS reviewed pt chart and discussed with pt RN. Discharge order on the chart for home with self care. Pt is currently on room air. [facility], ; fax [phone], notified of discharge.
--- NOTE | 2019-12-27 12:09 | DS ---
DATE OF DISCHARGE: 12/27/2019 ADMISSION DIAGNOSES: Pneumonia and heart failure, volume overload, cocaine use, end-stage renal disease, on dialysis. DISCHARGE DIAGNOSES: Resolving volume overload; resolving heart failure; malignant hypertension; end-stage renal disease, on dialysis; hyperlipidemia; cocaine abuse. CONSULTATIONS: Cardiology, Nephrology and Pulmonary Medicine. PROCEDURES: None. HOSPITAL COURSE: The patient is a pleasant middle-aged male, who presented with shortness of breath, was noted to be in respiratory failure. We admitted him and ruled out COVID-19 as well. We got him dialyzed. The above consults were obtained. Today, I saw him and examined, he is as baseline. He wants to go home. We plan to discharge with close outpatient followup. DISPOSITION: Home. ACTIVITY: As tolerated. DIET: Low sodium. MEDICATIONS: Please see the MRAD. TOTAL TIME: 38 minutes. ALECL Cm BARBA DO DR: JOSUE/lily JOB#: [id number] / [id number]
--- NOTE | 2019-12-27 13:22 | NUR ---
patient returned to room from dialysis.
--- NOTE | 2019-12-27 15:12 | NUR ---
Discharge Note: JACE ARELLANO Discharge instructions and discharge home medications reviewed with patient and a copy given. All questions have been answered and understanding verbalized. The following instructions and handouts were given: follow up instructions. Discontinued lines and drains: catheter tip intact. Patient discharged to home with self-care via personal transportation.
[2019-12-27 15:36] VITALS: BP 143/90
== END 2019-12-27 15:35 | disposition home or self-care (01) | DRG 291 ==
LOC: ER 00:50 → 6 SOUTH 01:41 → OBSVTOIN 12:27 → 1 WEST ICU 13:14 → 6 SOUTH 12-26 14:19
PROVIDERS: ADMIT Family Medicine; ATTEND Family Medicine
PROC: 5A09357 Assistance with Respiratory Ventilation, Less than 24 Consecutive Hours, Continuous Positive Airway Pressure (ICD-10-PCS; principal; 2019-12-25)
PROC: 5A1D70Z Performance of Urinary Filtration, Intermittent, Less than 6 Hours Per Day (ICD-10-PCS; 2019-12-25)
PROC: 5A1D70Z Performance of Urinary Filtration, Intermittent, Less than 6 Hours Per Day (ICD-10-PCS; 2019-12-27)
DX: I13.2 Hypertensive heart and chronic kidney disease with heart failure and with stage 5 chronic kidney disease, or end stage renal disease (principal); I50.43 Acute on chronic combined systolic (congestive) and diastolic (congestive) heart failure; N18.6 End stage renal disease; J96.21 Acute and chronic respiratory failure with hypoxia; J18.9 Pneumonia, unspecified organism; J44.0 Chronic obstructive pulmonary disease with (acute) lower respiratory infection; J98.11 Atelectasis; E78.5 Hyperlipidemia, unspecified; F14.10 Cocaine abuse, uncomplicated; F17.210 Nicotine dependence, cigarettes, uncomplicated; E21.3 Hyperparathyroidism, unspecified; K21.9 Gastro-esophageal reflux disease without esophagitis; D64.9 Anemia, unspecified; E87.5 Hyperkalemia; I16.0 Hypertensive urgency; Z03.818 Encounter for observation for suspected exposure to other biological agents ruled out; Z82.49 Family history of ischemic heart disease and other diseases of the circulatory system; Z83.3 Family history of diabetes mellitus; Z99.2 Dependence on renal dialysis; Z71.6 Tobacco abuse counseling
CPT/HCPCS: 36415; 36600; 71045; 80048; 80053; 82805; 83605; 83880; 84484; 85025; 87040; 93005; 94660; 96365; 96375; 99285; 99406; G0378; G0379; J0360; J0456; J0696; J1940; J2060; J2270; J2405; J3490; U0003-CS

== ENCOUNTER 2020-02-02 12:22 | Emergency (ER) | payer OTHER, MEDICAID ==
[~2020-02-02] VITALS: Ht 177.8 cm; Wt 82.0 kg
[~2020-02-02 12:22] MED LIST changes: +CALC667T4 PO; +FERR210T PO; +HYDR-2868 PO; +PANT40TA6 PO
--- NOTE | 2020-02-02 12:30 | PHYS DOC ---
Past Medical History Past Medical History: High Cholesterol, Hypertension, Renal Failure Additional Past Medical Histor: ESRD Past Surgical History: Other Additional Past Surgical Histo: rt chest portacath placement, RT ARM FISTULA Smoking Status: Current Every Day Smoker Alcohol Use: None Drug Use: Cocaine General Adult EDM: Chief Complaint: Dizziness HPI: HPI: Patient is a 54 year old male who presents with a chief complaint of dizziness. Patient was in route to dialysis when he had sudden onset of dizziness which he described as room spinning and was somewhat diaphoretic. Patient denies any recent illnesses no vomiting cough shortness of breath chest pain. Patient has any headache. Patient's blood sugar was normal prior to arrival patient was mildly hypertensive prior to arrival. Patient states he is feeling better but still feels a little dizzy. Patient has complaints of seeing some spots. Review of Systems: Review of Systems: Constitutional: Denies fever or chills. [] Eyes: Reports seeing some spots HENT: Denies nasal congestion or sore throat. [] Respiratory: Denies cough or shortness of breath. [] Cardiovascular: Denies chest pain or edema. [] GI: Denies abdominal pain, nausea, vomiting, bloody stools or diarrhea. [] : Denies dysuria. [] Musculoskeletal: Denies back pain or joint pain. [] Integument: Denies rash. [] Neurologic: Denies headache, focal weakness or sensory changes. But complains of dizziness Endocrine: Denies polyuria or polydipsia. [] Lymphatic: Denies swollen glands. [] Psychiatric: Denies depression or anxiety. [] Heart Score: Risk Factors: Risk Factors: DM, Current or recent (<one month) smoker, HTN, HLP, family history of CAD, obesity. Risk Scores: Score 0 - 3: 2.5% MACE over next 6 weeks - Discharge Home Score 4 - 6: 20.3% MACE over next 6 weeks - Admit for Clinical Observation Score 7 - 10: 72.7% MACE over next 6 weeks - Early Invasive Strategies Allergies: Allergies: Allergies Coded Allergies Type Severity Reaction Last Updated Verified No Known Drug Allergies 08/23/17 No Physical Exam: PE: Constitutional: Well developed, well nourished, no acute distress, non-toxic appearance. [] HENT: Normocephalic, atraumatic, bilateral external ears normal, no trismus nose normal. [] Eyes: PERRLA, EOMI, conjunctiva normal, no discharge. [] Neck: Normal range of motion, no tenderness, supple, no stridor. [] Cardiovascular:Heart rate regular rhythm, cap refill brisk, peripheral pulses intact Lungs & Thorax: Bilateral breath sounds clear, no respiratory distress Abdomen: soft, no tenderness, no masses, no pulsatile masses. [] Skin: Warm, dry, no erythema, no rash. [] Back: No tenderness, no CVA tenderness. [] Extremities: No tenderness, no cyanosis, no clubbing, ROM intact, no edema. [] S dangelo thrill in the right upper extremity fistula. Neurologic: Alert and oriented X 3, normal motor function, normal sensory function, no focal deficits noted. [Normal cerebellar exam] Psychologic: Affect normal, judgement normal, mood normal. [] Current Patient Data: Labs: Laboratory Tests Test 02/02/20 13:50 White Blood Count 8.4 x10^3/uL Red Blood Count 3.94 x10^6/uL Hemoglobin 13.1 g/dL Hematocrit 39.3 % Mean Corpuscular Volume 100 fL Mean Corpuscular Hemoglobin 33 pg Mean Corpuscular Hemoglobin Concent 33 g/dL Red Cell Distribution Width 19.9 % Platelet Count 137 x10^3/uL Neutrophils (%) (Auto) 82 % Lymphocytes (%) (Auto) 10 % Monocytes (%) (Auto) 5 % Eosinophils (%) (Auto) 2 % Basophils (%) (Auto) 1 % Neutrophils # (Auto) 6.9 x10^3/uL Lymphocytes # (Auto) 0.9 x10^3/uL Monocytes # (Auto) 0.4 x10^3/uL Eosinophils # (Auto) 0.2 x10^3/uL Basophils # (Auto) 0.1 x10^3/uL Sodium Level 137 mmol/L Potassium Level 5.1 mmol/L Chloride Level 100 mmol/L Carbon Dioxide Level 25 mmol/L Anion Gap 12 Blood Urea Nitrogen 40 mg/dL Creatinine 11.2 mg/dL Estimated GFR (Cockcroft-Gault) 4.8 BUN/Creatinine Ratio 4 Glucose Level 89 mg/dL Calcium Level 9.5 mg/dL Total Bilirubin 0.4 mg/dL Aspartate Amino Transf (AST/SGOT) 9 U/L Alanine Aminotransferase (ALT/SGPT) 11 U/L Alkaline Phosphatase 90 U/L Troponin I Quantitative < 0.017 ng/mL Total Protein 6.8 g/dL Albumin 3.5 g/dL Albumin/Globulin Ratio 1.1 Vital Signs: Vital Signs Date Time Temp Pulse Resp B/P (MAP) Pulse Ox O2 Delivery O2 Flow Rate FiO2 02/02/20 12:22 97.7 73 16 203/93 (129) 93 Room Air 97.7 EKG: EKG: [] EKG interpreted by me normal sinus rhythm with a rate of 72 normal axis normal intervals nonspecific ST changes Radiology/Procedures: Radiology/Procedures: [][facility] [id number] [place] [address] IMAGING REPORT Signed PATIENT: JACE ARELLANO ACCOUNT: [id number] : 1965 LOCATION: ER AGE: 54 SEX: M EXAM STATUS: PRE ER ORD. PHYSICIAN: JUMANA DE LEÓN MD REASON: DIZZY PROCEDURE: CT HEAD WO CONTRAST CT head without contrast dated 02/02/2020. No comparison available. CLINICAL INDICATION: Dizziness TECHNIQUE: Contiguous axial imaging the head was performed from skull base to vertex. No contrast administered. One or more of the following individualized dose reduction techniques were utilized for this examination: 1. Automated exposure control 2. Adjustment of the mA and/or kV according to patient size 3. Use of iterative reconstruction technique. FINDINGS: Ventricles and sulci are mildly prominent for age. No midline shift or mass effect. Brain parenchyma is of normal attenuation. No hemorrhage or extra-axial collection. Posterior fossa and brainstem unremarkable. Small mucous retention cyst of the right sphenoid sinus. The visually paranasal sinuses and mastoid air cells are otherwise clear. No apparent calvarial abnormality. IMPRESSION: 1. No evidence of acute intracranial abnormality. 2. Mild atrophy for age. Electronically signed by: Omkar Lam MD (02/02/2020 1:07 PM) [id number] DICTATED and SIGNED BY: OMKAR LAM MD DATE: 02/02/20 1307 [facility] [address] [place], [place] [id number] IMAGING REPORT Signed PATIENT: JACE ARELLANO ACCOUNT: [id number] : 1965 LOCATION: ER AGE: 54 SEX: M EXAM STATUS: PRE ER ORD. PHYSICIAN: JUMANA DE LEÓN MD REASON: DIZZY PROCEDURE: PORTABLE CHEST 1V PORTABLE CHEST 1V History: Reason: DIZZY / Spl. Instructions: / History: Comparison: December 25, 2019 Findings: Decreased right basilar consolidation. Resolved patchy left basilar opacities. Mild residual right basilar patchy opacity. Small right pleural effusion, unchanged. No pneumothorax. Normal heart size. Impression: 1. Decreased right basilar consolidation. 2. Small right pleural effusion. Electronically signed by: Long Klein DO (02/02/2020 1:05 PM) [facility] DICTATED and SIGNED BY: LONG KLEIN DO DATE: 02/02/20 6246 Course & Med Decision Making: Course & Med Decision Making Pertinent Labs and Imaging studies reviewed. (See chart for details) [] Reassessed at 1:30. Patient feels better. CT is negative. X-ray is improving. EKG is unremarkable. Patient's work-up is reassuring. Patient cleared for dialysis today. Patient symptoms almost completely resolved. Of note patient admits to nursing of cocaine use last night and I wonder if this is a contributing factor to his symptoms. Normal neuro eye negative CT doubt stroke. Patient is clinically stable to go to dialysis. Dragon Disclaimer: Dragon Disclaimer: This electronic medical record was generated, in whole or in part, using a voice recognition dictation system. Departure Departure Impression: Primary Impression: Dizziness Additional Impression: End stage renal disease Disposition: HOME, SELF-CARE Condition: STABLE Referrals: Richie VOGEL MD (PCP) Go to dialysis right now Patient Instructions: Dizziness Additional Instructions: EMERGENCY DEPARTMENT GENERAL DISCHARGE INSTRUCTIONS THANK YOU for coming to [facility] Emergency Department (ED) today and trusting us with your care. We trust that you had a positive experience in our Emergency Department. If you wish to speak to the department Management you can contact the retail department supervisor at . YOUR FOLLOW UP INSTRUCTIONS ARE FOLLOWS: Do you have a private doctor? If you do not have a private doctor, please ask for a resource list of physicians or clinics that may be able to assist you with follow up ca re. The Emergency Physician has interpreted your x-rays. The X-ray specialist will also review them. If there is a change in the findings you will be notified in 48 hours when at all possible. A lab test or lab culture may have been done, your results will be reviewed and you will be notified if you need a change in treatment. ADDITIONAL INSTRUCTIONS AND INFORMATION Your care today has been supervised by a physician who is specially trained in emergency care. Many problems require more than one evaluation for a complete diagnosis and treatment. We recommend that you schedule your follow up appointment as recommended to ensure complete treatment of your illness or injury. If you are unable to obtain follow up care and continue to have a problem, or if your condition worsens we recommend that you return to the ED. We are not able to safely determine your condition over the phone nor are we able to give sound medical advice over the phone. For these safety reasons, if you call for medical advice we will ask you to come to the ED for further evaluation If you have any questions regarding these discharge instructions please call the ED at . SAFETY INFORMATION In the interest of safety, wellness, and injury prevention; we encourage you to wear your seatbelt, if you smoke; quit smoking, and we encourage your family to use protective helmet for bicycling and other sporting events that present an increased risk for head injury. IF YOUR SYMPTOMS WORSEN OR NEW SYMPTOMS DEVELOP, OR YOU HAVE CONCERNS ABOUT YOUR CONDITION; OR IF YOUR CONDITION WORSENS WHILE YOU ARE WAITING FOR YOUR FOLLOW UP APPOINTMENT; EITHER CONTACT YOUR PRIMARY CARE DOCTOR, THE PHYSICIAN WHOSE NAME AND NUMBER YOU WERE GIVEN, OR RETURN TO THE ED IMMEDIATELY. Justicifation of Admission Dx: Justifications for Admission: Justification of Admission Dx: N/A JUMANA DE LEÓN MD Feb 02, 2020 12:29
--- NOTE | 2020-02-02 13:08 | RAD ---
PORTABLE CHEST 1V History: Reason: DIZZY / Spl. Instructions: / History: Comparison: December 25, 2019 Findings: Decreased right basilar consolidation. Resolved patchy left basilar opacities. Mild residual right basilar patchy opacity. Small right pleural effusion, unchanged. No pneumothorax. Normal heart size. Impression: 1. Decreased right basilar consolidation. 2. Small right pleural effusion. Electronically signed by: Long Klein DO (02/02/2020 1:05 PM) [facility]
--- NOTE | 2020-02-02 13:09 | RAD ---
CT head without contrast dated 02/02/2020. No comparison available. CLINICAL INDICATION: Dizziness TECHNIQUE: Contiguous axial imaging the head was performed from skull base to vertex. No contrast administered. One or more of the following individualized dose reduction techniques were utilized for this examination: 1. Automated exposure control 2. Adjustment of the mA and/or kV according to patient size 3. Use of iterative reconstruction technique. FINDINGS: Ventricles and sulci are mildly prominent for age. No midline shift or mass effect. Brain parenchyma is of normal attenuation. No hemorrhage or extra-axial collection. Posterior fossa and brainstem unremarkable. Small mucous retention cyst of the right sphenoid sinus. The visually paranasal sinuses and mastoid air cells are otherwise clear. No apparent calvarial abnormality. IMPRESSION: 1. No evidence of acute intracranial abnormality. 2. Mild atrophy for age. Electronically signed by: Omkar Olmedo MD (02/02/2020 1:07 PM) [id number]
[2020-02-02 14:03] LABS: BASO # 0.1 x10^3/uL (0.0-0.2); BASO % 1 % (0-3); EOS # 0.2 x10^3/uL (0.0-0.7); EOS % 2 % (0-3); HEMATOCRIT 39.3 % (39.0-53.0); HEMOGLOBIN 13.1 g/dL (13.0-17.5); LYMPH # 0.9 x10^3/uL (1.0-4.8); LYMPH % 10 % (24-48); MEAN CORPUSCULAR HEMOGLOBIN 33 pg (25-35); MEAN CORPUSCULAR HGB CONC 33 g/dL (31-37); MEAN CORPUSCULAR VOLUME 100 fL (79-100); MONO # 0.4 x10^3/uL (0.0-1.1); MONO % 5 % (0-9); NEUT # 6.9 x10^3/uL (1.8-7.7); NEUT % 82 % (31-73); PLATELET COUNT 137 x10^3/uL (140-400); RED BLOOD COUNT 3.94 x10^6/uL (4.30-5.70); RED CELL DISTRIBUTION WIDTH 19.9 % (11.5-14.5); WHITE BLOOD COUNT 8.4 x10^3/uL (4.0-11.0)
[2020-02-02 14:10] LABS: CALCIUM 9.5 mg/dL (8.5-10.1); CREATININE 11.2 mg/dL (0.7-1.3); GFR 4.8; POTASSIUM 5.1 mmol/L (3.5-5.1)
[2020-02-02 14:16] LABS: ALBUMIN 3.5 g/dL (3.4-5.0); ALBUMIN/GLOBULIN RATIO 1.1 (1.0-1.7); TOTAL BILIRUBIN 0.4 mg/dL (0.2-1.0); TOTAL PROTEIN 6.8 g/dL (6.4-8.2)
[2020-02-02 15:00] VITALS: BP 177/61
--- NOTE | 2020-02-03 18:38 | EKG ---
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
== END 2020-02-02 15:10 | disposition home or self-care (01) ==
LOC: ER 12:22
DX: R42 Dizziness and giddiness (principal); N18.6 End stage renal disease; E78.00 Pure hypercholesterolemia, unspecified; I10 Essential (primary) hypertension; F17.200 Nicotine dependence, unspecified, uncomplicated; F14.90 Cocaine use, unspecified, uncomplicated; Z98.890 Other specified postprocedural states
CPT/HCPCS: 36415; 70450; 71045; 80053; 84484; 85025; 93005; 99285

== ENCOUNTER → 2020-12-26 | Outpatient (CLI) | payer OTHER, MEDICAID ==
[2020-08-29 08:07] VITALS: BP 147/77
[~2020-12-26] MED LIST changes: -ISOS30TA4 PO; +ISOS30TA68 PO
--- NOTE | 2020-12-26 12:45 | CARD ---
MR#: [id number] Date of Study: 12/26/2020 Ordering Physician: KEVIN BUNN, Referring Physician: KEVIN BUNN, Tech: Gaetano Garza [facility] APPROVED REPORT EXAM: Two-dimensional and M-mode echocardiogram with Doppler and color Doppler. Other Information Quality : AverageHR: 78bpm Rhythm : NSR INDICATION Hypertension/HCVD RISK FACTORS Hypertension 2D DIMENSIONS Left Atrium(2D)3.9 (1.6-4.0cm)IVSd1.2 (0.7-1.1cm) Aortic Root(2D)2.7 (2.0-3.7cm)LVDd3.9 (3.9-5.9cm) LVOT Diameter1.9 (1.8-2.4cm)PWd1.2 (0.7-1.1cm) LVDs1.7 (2.5-4.0cm)FS (%) 55.7 % SV56.3 mlLVEF(%)86.7 (>50%) Aortic Valve AoV Peak Carlos.112.4cm/sAoV VTI21.2cm AO Peak GR.5.1mmHgLVOT Peak Carlos.108.0cm/s LVOT VTI 19.30cmAO Mean GR.3mmHg AUDI (VMAX)2.98xw8IDK (VTI)2.54cm2 AI P 1/2 Tqvp312lh Mitral Valve MV E Ohlvcxtm42.2cm/sMV DECEL [id number] MV A Nrtrtovu92.0cm/sMV E Mean Gr.2mmHg MV FDO73fqH/A Ratio0.7 MVA (PHT)3.65cm2 TDI E/Lateral E'8.7E/Medial E'9.6 Pulmonary Valve PV Peak Rpibacfo078.7cm/sPV Peak Grad.4mmHg Pulmonary Vein S1 Yphteyyt33.3cm/sD2 Zouhrbad19.4cm/s LEFT VENTRICLE The left ventricle is normal size. There is mild concentric left ventricular hypertrophy. The left ve ntricular systolic function is normal. The ejection fraction is 60%. There is normal LV segmental wal l motion. Transmitral Doppler flow pattern is Grade I-abnormal relaxation pattern. No left ventricle thrombus noted on this study. There is no ventricular septal defect visualized. There is no left vent ricular aneurysm. There is no mass noted in the left ventricle. RIGHT VENTRICLE The right ventricle is normal size. There is normal right ventricular wall thickness. The right ventr icular systolic function is normal. ATRIA The left atrium size is normal. The right atrium size is normal. The interatrial septum is intact wit h no evidence for an atrial septal defect or patent foramen ovale as noted on 2-D or Doppler imaging. AORTIC VALVE The aortic valve is normal in structure and function. Doppler and Color Flow revealed trace aortic re gurgitation. There is no significant aortic valvular stenosis. There is no aortic valvular vegetation . MITRAL VALVE The mitral valve is normal in structure and function. There is no evidence of mitral valve prolapse. There is no mitral valve stenosis. Doppler and Color Flow revealed no mitral valve regurgitation note d. TRICUSPID VALVE The tricuspid valve is normal in structure and function. Doppler and Color Flow revealed trace tricus pid regurgitation. There is no tricuspid valve prolapse or vegetation. There is no tricuspid valve st enosis. GREAT VESSELS The aortic root is normal in size. The ascending aorta is normal in size. The pulmonary artery is nor mal. The IVC is normal in size and collapses >50% with inspiration. PERICARDIAL EFFUSION There is no pleural effusion. There is no evidence of significant pericardial effusion. Critical Notification Critical Value: No <Conclusion> The left ventricular systolic function is normal. The ejection fraction is 60%. There is normal LV segmental wall motion. Transmitral Doppler flow pattern is Grade I-abnormal relaxation pattern. Trace tricuspid regurgitation. There is no evidence of significant pericardial effusion. Signed by : Pee Ramirez, Electronically Approved : 12/26/2020 12:45:10
== END ==
LOC: ECHO 07:53
PROVIDERS: ATTEND Internal Medicine Cardiovascular Disease
DX: I51.7 Cardiomegaly (principal); I10 Essential (primary) hypertension
CPT/HCPCS: 93306

== ENCOUNTER 2021-03-01 16:43 | Inpatient (IN) | payer OTHER, MEDICAID ==
[~2021-03-01] VITALS: Ht 162.6 cm; Wt 68.4 kg
[~2021-03-01 16:43] MED LIST changes: -DOXY100C2 PO; +DOXY100C3 PO
[2021-03-01] MEDS ORDERED: IV NORMAL SALINE 500ML BAG 500 ML IV ONE (17:00)
[2021-03-01] MEDS ORDERED: ONDANSETRON PF 4 MG/2 ML VIAL. IVP ONE (17:00)
--- NOTE | 2021-03-01 17:30 | EKG ---
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
--- NOTE | 2021-03-01 18:14 | RAD ---
Exam: CT head INDICATION: Altered mental status TECHNIQUE: Sequential axial images through the head were obtained without the administration of IV co ntrast. Exposure: One or more of the following in the visualized dose reduction techniques were utilized for this examination: 1. Automated exposure control 2. Adjustment of the MA and/or KV according to patient size 3. Use of iterative of reconstructive technique Comparisons: 02/02/2020 FINDINGS: No focal parenchymal lesion or hemorrhage is identified. There is no midline shift or sulcal effaceme nt. Infarct within the left MCA distribution at the left frontal/parietal lobe which is new when compared to the study on 02/02/2020 . Felix-white distinction is preserved. The ventricular system is within normal limits without compression hydrocephalus. The basal cisterns are well maintained. Uterus retention cyst noted within the right sphenoid sinus. No acute fractures. IMPRESSION: 1. Subacute appearing infarct at the left MCA distribution. Difficult to exclude acute component. If there is concerns for acute ischemia MRI would better evaluate. 2. Sinus disease as described above. FOR INTERNAL CODING PURPOSES Critical result: Findings discussed with ER provider at 03/01/2021 6:09 PM. RESULT CODE: (C) Electronically signed by: Garland Perez MD (03/01/2021 6:11 PM) JOHN
--- NOTE | 2021-03-01 18:22 | RAD ---
AP portable chest radiograph 03/01/2021 Clinical History: Body aches. An AP portable digital radiograph of the chest was obtained. Comparison study is dated 08/27/2020. The cardiac silhouette is borderline enlarged. The thoracic aorta is mildly tortuous. Atherosclerotic calcification of the thoracic aorta is seen. Blunting of the right costophrenic angle is seen which may reflect pleural thickening versus small right pleural effusion. This is unchanged. No acute pulmo nary infiltrate is noted. No pneumothorax or pleural effusion is seen. The osseous structures are unc hanged. Impression: No acute pulmonary infiltrate is seen. Electronically signed by: Bryce Flores MD (03/01/2021 6:20 PM) [id number]
--- NOTE | 2021-03-01 18:22 | RAD ---
Exam: CT abdomen and pelvis without contrast INDICATION: Altered mental status TECHNIQUE: Sequential axial images through the abdomen and pelvis obtained without IV contrast. Sagit nitesh and coronal reformatted images were reconstructed from the axial data and reviewed. Exposure: One or more of the following in the visualized dose reduction techniques were utilized for this examination: 1. Automated exposure control 2. Adjustment of the MA and/or KV according to patient size 3. Use of iterative of reconstructive technique Comparisons: None FINDINGS: Heart size is normal. No pericardial effusion. Trace right pleural effusion with adjacent stranding. Evaluation of the solid organs is limited secondary to noncontrast technique. Liver, spleen, pancreas, gallbladder and adrenals are unremarkable. Kidneys are markedly atrophic bilaterally. No renal or ureteral calculi are identified. Uterus is decompressed not well evaluated. Prostate is not enlarged. Large and small bowel are unremarkable. Appendix is normal. No free intra-abdominal air or fluid. No obstruction. Abdominal aorta has a normal course and caliber. No enlarged intra-abdominal lymph nodes are identified. No suspicious osseous lesions or acute fractures. IMPRESSION: 1. No acute processes identified within the abdomen or pelvis. 2. Chronic atrophic appearance of the kidneys. 3. Trace right pleural effusion with adjacent stranding likely atelectasis Electronically signed by: Garland Perez MD (03/01/2021 6:20 PM) [facility]
[2021-03-01 18:30] LABS: BASO # 0.1 x10^3/uL (0.0-0.2); BASO % 1 % (0-3); EOS # 0.2 x10^3/uL (0.0-0.7); EOS % 1 % (0-3); HEMATOCRIT 44.6 % (39.0-53.0); HEMOGLOBIN 14.8 g/dL (13.0-17.5); LYMPH % 7 % (24-48); MEAN CORPUSCULAR HEMOGLOBIN 35 pg (25-35); MEAN CORPUSCULAR HGB CONC 33 g/dL (31-37); MEAN CORPUSCULAR VOLUME 104 fL (79-100); MONO # 0.8 x10^3/uL (0.0-1.1); MONO % 6 % (0-9); NEUT % 85 % (31-73); PLATELET COUNT 152 x10^3/uL (140-400); RED BLOOD COUNT 4.31 x10^6/uL (4.30-5.70); RED CELL DISTRIBUTION WIDTH 17.2 % (11.5-14.5); WHITE BLOOD COUNT 14.1 x10^3/uL (4.0-11.0)
[2021-03-01 18:57] LABS: % BANDS 3 % (0-9); % BASOS 1 % (0-3); % EOS 3 % (0-5); % LYMPHS 6 % (24-48); % MONOS 6 % (0-10); % SEGS 81 % (35-66); ANISOCYTOSIS SLIGHT; PLT ESTIMATE ADEQUATE (ADEQUATE)
[2021-03-01] MEDS ORDERED: PROCHLORPERAZINE 10 MG/2 ML VIAL. IV ONE (19:00)
[2021-03-01] MEDS ORDERED: LABETALOL 20 MG/4 ML DISP.SYRIN. IVP ONE (19:00)
[2021-03-01 19:02] LABS: CALCIUM 9.6 mg/dL (8.5-10.1); CREATININE 10.1 mg/dL (0.7-1.3); GFR 5.4; POTASSIUM 4.6 mmol/L (3.5-5.1)
[2021-03-01 19:09] LABS: ALBUMIN/GLOBULIN RATIO 1.1 (1.0-1.7); MAGNESIUM 2.1 mg/dL (1.8-2.4); TOTAL BILIRUBIN 0.5 mg/dL (0.2-1.0); TOTAL PROTEIN 7.5 g/dL (6.4-8.2)
--- NOTE | 2021-03-01 21:04 | PHYS DOC ---
Past Medical History Past Medical History: CVA, High Cholesterol, Hypertension, Renal Failure Additional Past Medical Histor: ESRD (JESUS HERNANDEZ DISEASE AND INSECT CONTROL BOSS) Past Surgical History: Other Additional Past Surgical Histo: rt chest portacath placement, RT ARM FISTULA (JESUS HERNANDEZ DISEASE AND INSECT CONTROL BOSS) Smoking Status: Current Every Day Smoker Alcohol Use: Occasionally Drug Use: Cocaine Social History Narrative: Mother reports a history but unsure of what he uses or used. (JESUS HERNANDEZ DISEASE AND INSECT CONTROL BOSS) General Adult EDM: Chief Complaint: NAUSEA/VOMITING/DIARRHEA HPI: HPI: Patient is a 55 year old male with a history of high cholesterol, hypertension, CVA with no deficits, end-stage kidney disease on dialysis Tuesday last dialyzed yesterday who presents to the ED today to be evaluated after eating spaghetti and developing nausea and vomiting. Patient's mother is doing most of the speaking. Patient himself chooses when to talk. He appears sleepy but arousable. He is refusing to cooperate and give us any information. Mother states patient had gone to help his brother work on her vehicle this morning. She states patient came home around noon. She states patient's brother had made spicy spaghetti sauce. She states patient decided to make spaghetti noodles. When they were ready he started eating roughly around 2 PM and before he got to far into the meal he started vomiting. Mother states patient had a CVA in September 2020, he was seen at [facility]. She states they did clot retrieval and he was sent home after 2 days. Mother states patient received Covid vaccine a couple months ago. (JESUS HERNANDEZ DISEASE AND INSECT CONTROL BOSS) Review of Systems: Review of Systems: Constitutional: Denies fever or chills. [] Eyes: Denies change in visual acuity. [] HENT: Denies nasal congestion or sore throat. [] Respiratory: Denies cough or shortness of breath. [] Cardiovascular: Denies chest pain or edema. [] GI: Reports nausea, vomiting, abdominal tenderness, denies bloody stools or diarrhea. [] : Denies dysuria. [] Musculoskeletal: Denies back pain or joint pain. [] Integument: Denies rash. [] Neurologic: Denies headache, focal weakness or sensory changes. [] Psychiatric: Denies depression or anxiety. [] (JESUS HERNANDEZ DISEASE AND INSECT CONTROL BOSS) Heart Score: C/O Chest Pain: N/A Risk Factors: Risk Factors: DM, Current or recent (<one month) smoker, HTN, HLP, family history of CAD, obesity. Risk Scores: Score 0 - 3: 2.5% MACE over next 6 weeks - Discharge Home Score 4 - 6: 20.3% MACE over next 6 weeks - Admit for Clinical Observation Score 7 - 10: 72.7% MACE over next 6 weeks - Early Invasive Strategies (JESUS HERNANDEZ DISEASE AND INSECT CONTROL BOSS) Current Medications: Current Medications Medications (Trade) Dose Ordered Sig/Neil Start Time Stop Time Status Last Admin Dose Admin Labetalol HCl (Normodyne Iv Push) 10 mg 1X ONCE 03/01/21 19:00 03/01/21 19:01 DC 03/01/21 18:48 10 MG Ondansetron HCl (Zofran) 4 mg 1X ONCE 03/01/21 17:00 03/01/21 17:10 DC 03/01/21 17:37 4 MG Prochlorperazine Edisylate (Compazine) 10 mg 1X ONCE 03/01/21 19:00 03/01/21 19:01 DC 03/01/21 18:47 10 MG Sodium Chloride 500 ml @ 500 mls/hr 1X ONCE 03/01/21 17:00 03/01/21 17:59 DC 03/01/21 17:30 500 MLS/HR (TAEBEATRICEJESUS Yolis DISEASE AND INSECT CONTROL BOSS) Allergies: Allergies: Allergies Coded Allergies Type Severity Reaction Last Updated Verified No Known Drug Allergies 08/23/17 No (JESUS HERNANDEZ DISEASE AND INSECT CONTROL BOSS) Physical Exam: PE: Constitutional: Appears lethargic but arousable and able to answer questions when he chooses, well developed, well nourished, no acute distress, non-toxic appearance. [] HENT: Normocephalic, atraumatic, bilateral external ears normal, oropharynx moist, no oral exudates, nose normal. [] Eyes: PERRLA, EOMI, conjunctiva normal, no discharge. [] Neck: Normal range of motion, no tenderness, supple, no stridor. [] Cardiovascular:Heart rate regular rhythm RUE fistula with positive bruit and thrill Lungs & Thorax: Bilateral breath sounds clear to auscultation [] Abdomen: Bowel sounds normal, soft, diffuse tenderness to the abdomen, no obvious point tenderness to the right upper quadrant or right lower quadrant, no masses, no pulsatile masses. [] Skin: Warm, dry, no erythema, no rash. [] Back: No tenderness, no CVA tenderness. [] Extremities: No tenderness, no cyanosis, no clubbing, ROM intact, no edema. [] Neurologic: Alert and oriented X 3, normal motor function, normal sensory function, no focal deficits noted. Cranial nerves II through XII intact. Psychologic: Flat affect (MUTUNGA,JESUS M DISEASE AND INSECT CONTROL BOSS) Current Patient Data: Labs: Laboratory Tests Test 03/01/21 16:46 03/01/21 18:15 03/01/21 18:30 03/01/21 18:40 Glucose (Fingerstick) 141 mg/dL (70-99) H Lactic Acid Level 2.7 mmol/L (0.4-2.0) H White Blood Count 14.1 x10^3/uL (4.0-11.0) H Red Blood Count 4.31 x10^6/uL (4.30-5.70) Hemoglobin 14.8 g/dL (13.0-17.5) Hematocrit 44.6 % (39.0-53.0) Mean Corpuscular Volume 104 fL (79-100) H Mean Corpuscular Hemoglobin 35 pg (25-35) Mean Corpuscular Hemoglobin Concent 33 g/dL (31-37) Red Cell Distribution Width 17.2 % (11.5-14.5) H Platelet Count 152 x10^3/uL (140-400) Neutrophils (%) (Auto) 85 % (31-73) H Lymphocytes (%) (Auto) 7 % (24-48) L Monocytes (%) (Auto) 6 % (0-9) Eosinophils (%) (Auto) 1 % (0-3) Basophils (%) (Auto) 1 % (0-3) Neutrophils # (Auto) 12.0 x10^3/uL (1.8-7.7) H Lymphocytes # (Auto) 1.0 x10^3/uL (1.0-4.8) Monocytes # (Auto) 0.8 x10^3/uL (0.0-1.1) Eosinophils # (Auto) 0.2 x10^3/uL (0.0-0.7) Basophils # (Auto) 0.1 x10^3/uL (0.0-0.2) Segmented Neutrophils % 81 % (35-66) H Band Neutrophils % 3 % (0-9) Lymphocytes % 6 % (24-48) L Monocytes % 6 % (0-10) Eosinophils % 3 % (0-5) Basophils % 1 % (0-3) Platelet Estimate Adequate (ADEQUATE) Anisocytosis Slight Sodium Level 139 mmol/L (136-145) Potassium Level 4.6 mmol/L (3.5-5.1) Chloride Level 100 mmol/L (98-107) Carbon Dioxide Level 25 mmol/L (21-32) Anion Gap 14 (6-14) Blood Urea Nitrogen 37 mg/dL (8-26) H Creatinine 10.1 mg/dL (0.7-1.3) H Estimated GFR (Cockcroft-Gault) 5.4 BUN/Creatinine Ratio 4 (6-20) L Glucose Level 112 mg/dL (70-99) H Calcium Level 9.6 mg/dL (8.5-10.1) Magnesium Level 2.1 mg/dL (1.8-2.4) Total Bilirubin 0.5 mg/dL (0.2-1.0) Aspartate Amino Transferase (AST) 11 U/L (15-37) L Alanine Aminotransferase (ALT) 19 U/L (16-63) Alkaline Phosphatase 116 U/L (46-116) Troponin I Quantitative < 0.017 ng/mL (0.000-0.055) JH-Elo-B-Type Natriuretic Peptide 2596 pg/mL (0-124) H Total Protein 7.5 g/dL (6.4-8.2) Albumin 4.0 g/dL (3.4-5.0) Albumin/Globulin Ratio 1.1 (1.0-1.7) Lipase 196 U/L (73-393) Thyroid Stimulating Hormone (TSH) 2.181 uIU/mL (0.358-3.74) Laboratory Tests 03/01/21 18:30 Laboratory Tests 03/01/21 18:40 Vital Signs: Vital Signs Date Time Temp Pulse Resp B/P (MAP) Pulse Ox O2 Delivery O2 Flow Rate FiO2 03/01/21 19:13 79 138/75 (96) 99 Room Air 03/01/21 16:45 97.4 18 97.4 (JESUS HERNANDEZ DISEASE AND INSECT CONTROL BOSS) EKG: EK interpreted by Dr. Hardy sinus rhythm heart rate 79 no STEMI (JESUS HERNANDEZ DISEASE AND INSECT CONTROL BOSS) Radiology/Procedures: Radiology/Procedures: []PROCEDURE: CT HEAD WO CONTRAST Exam: CT head INDICATION: Altered mental status TECHNIQUE: Sequential axial images through the head were obtained without the administration of IV contrast. Exposure: One or more of the following in the visualized dose reduction techniques were utilized for this examination: 1. Automated exposure control 2. Adjustment of the MA and/or KV according to patient size 3. Use of iterative of reconstructive technique Comparisons: 02/02/2020 FINDINGS: No focal parenchymal lesion or hemorrhage is identified. There is no midline shift or sulcal effacement. Infarct within the left MCA distribution at the left frontal/parietal lobe which is new when compared to the study on 02/02/2020 . Felix-white distinction is preserved. The ventricular system is within normal limits without compression hydrocephalus. The basal cisterns are well maintained. Uterus retention cyst noted within the right sphenoid sinus. No acute fractures. IMPRESSION: 1. Subacute appearing infarct at the left MCA distribution. Difficult to exclude acute component. If there is concerns for acute ischemia MRI would better evaluate. 2. Sinus disease as described above. FOR INTERNAL CODING PURPOSES Critical result: Findings discussed with ER provider at 03/01/2021 6:09 PM. RESULT CODE: (C) Electronically signed by: Garland Nelson MD (03/01/2021 6:11 PM) [facility] DICTATED and SIGNED BY: GARLAND NELSON MD DATE: 03/01/21 [id number] 0 PROCEDURE: PORTABLE CHEST 1V AP portable chest radiograph 03/01/2021 Clinical History: Body aches. An AP portable digital radiograph of the chest was obtained. Comparison study is dated 08/27/2020. The cardiac silhouette is borderline enlarged. The thoracic aorta is mildly tortuous. Atherosclerotic calcification of the thoracic aorta is seen. Blunting of the right costophrenic angle is seen which may reflect pleural thickening versus small right pleural effusion. This is unchanged. No acute pulmonary infiltrate is noted. No pneumothorax or pleural effusion is seen. The osseous structures are unchanged. Impression: No acute pulmonary infiltrate is seen. Electronically signed by: Karissa Flores MD (03/01/2021 6:20 PM) [id number] DICTATED and SIGNED BY: KARISSA FLORES MD DATE: 03/01/21 [id number] 0 PROCEDURE: CT ABDOMEN PELVIS WO CONTRAST Exam: CT abdomen and pelvis without contrast INDICATION: Altered mental status TECHNIQUE: Sequential axial images through the abdomen and pelvis obtained without IV contrast. Sagittal and coronal reformatted images were reconstructed from the axial data and reviewed. Exposure: One or more of the following in the visualized dose reduction techniques were utilized for this examination: 1. Automated exposure control 2. Adjustment of the MA and/or KV according to patient size 3. Use of iterative of reconstructive technique Comparisons: None FINDINGS: Heart size is normal. No pericardial effusion. Trace right pleural effusion with adjacent stranding. Evaluation of the solid organs is limited secondary to noncontrast technique. Liver, spleen, pancreas, gallbladder and adrenals are unremarkable. Kidneys are markedly atrophic bilaterally. No renal or ureteral calculi are identified. Uterus is decompressed not well evaluated. Prostate is not enlarged. Large and small bowel are unremarkable. Appendix is normal. No free intra- abdominal air or fluid. No obstruction. Abdominal aorta has a normal course and caliber. No enlarged intra-abdominal lymph nodes are identified. No suspicious osseous lesions or acute fractures. IMPRESSION: 1. No acute processes identified within the abdomen or pelvis. 2. Chronic atrophic appearance of the kidneys. 3. Trace right pleural effusion with adjacent stranding likely atelectasis Electronically signed by: Garland Nelson MD (03/01/2021 6:20 PM) [facility] DICTATED and SIGNED BY: GARLAND NELSON MD DATE: 03/01/[id number] 0 (JESUS HERNANDEZ APRN) Course & Med Decision Making: Course & Med Decision Making Pertinent Labs and Imaging studies reviewed. (See chart for details) This is a 55-year-old male patient presented to the ED today to be evaluated today for nausea and vomiting that began a couple hours prior to coming to the ED after having spicy spaghetti. Vitals on arrival to the ED temperature 97.4, heart rate 72, respiration 18 on room air, O2 sats 99%, blood pressure 202/90. We attempted stroke scale on patient's arrival to the ED, he was uncooperative and choosing when to answer or not answer questions. CBC with WBC of 14.1, CMP with normal potassium. Creatinine 10.1 with BUN of 37. CT of the head was obtained considering how sleepy this patient was on arrival to the ED. Radiologist called me informing me that patient has a subacute appearing infarct at the left MCA distribution. Difficult to exclude acute component. If there is concerns for acute ischemia MRI would better evaluate. Sinus disease as described above. I spoke to Dr. Tan he requested we admit patient, order MRI for morning, this patient is not a TPA candidate, aspirin was given. Spoke with Dr. Renner who accepted patient for admission Nephrology consult placed (JESUS HERNANDEZ APRN) Dragon Disclaimer: Dragon Disclaimer: This electronic medical record was generated, in whole or in part, using a voice recognition dictation system. (JESUS HERNANDEZ APRN) Departure Departure Impression: Primary Impression: ESRD (end stage renal disease) Additional Impression: Nausea and vomiting Qualified Codes: R11.2 - Nausea with vomiting, unspecified Disposition: ADMITTED INPATIENT Condition: STABLE Referrals: Richie VOGEL MD (PCP) Attending Signature Attending Signature I have reviewed the PA/WASTE ELIMINATION's note and plan of care. I was available for consultation as needed during the patient's visit in the emergency department. I agree with the clinical impression, plan, and disposition. (KAM MILLAN DO) JESUS HERNANDEZ APRN Mar 01, 2021 21:04 KAM MILLAN DO Mar 02, 2021 00:35
[2021-03-01] MEDS ORDERED: ASPIRIN 325 MG TABLET PO ONE (21:30)
[2021-03-01] MEDS ORDERED: fentaNYL PF VIAL 100 MCG/2 ML VIAL IVP PRN (21:30)
[2021-03-01] MEDS ORDERED: ONDANSETRON PF 4 MG/2 ML VIAL. IVP PRN (21:30)
--- NOTE | 2021-03-01 22:30 | NUR ---
ADMISSION NOTE Pt admitted to room 562 from ER. Pt ambulatory with assist to bathroom. Pt found to have incontinent BM, pt cleaned up and changed, ambulated to bed with assist d/t unsteady gait. Pt is A/O, but is resistive and uncooperative with answering questions, only answering some questions and just not verbalizing with others. NIHSS was attempted by Judson PHELAN RN, but pt only participates in some of the scale, and refuses other parts. Pt will not read the words and sentences on the cards, refuses to smile, refuses the visual field testing, refuses to hold arms and legs up and perform hodge to toe slide with legs. Pt is alert, able to ambulate, speaks clearly, able to give good cough upon request and able to sip water with no s/s of aspiration. Pt medical history taken from ER charting and past visits. Pt does answering some of the admission questions and did confirm the medications that he takes at home after reading them off of the external med history. Pt informed of POC, pt vu. Pt also educated that he is a fall risk and needs to call if needing to get OOB. Pt given call light and instructed on use. Bed alarm on. Will monitor.
[2021-03-01] MEDS ORDERED: ASPI-630 PO (22:45)
[2021-03-01 23:00] VITALS: BP 174/88
[2021-03-02 03:07] VITALS: BP 169/79
[2021-03-02 07:00] VITALS: BP 149/82
[2021-03-02 09:51] LABS: BASO % 1 % (0-3); EOS # 0.3 x10^3/uL (0.0-0.7); EOS % 4 % (0-3); HEMATOCRIT 37.2 % (39.0-53.0); HEMOGLOBIN 12.5 g/dL (13.0-17.5); LYMPH # 1.2 x10^3/uL (1.0-4.8); LYMPH % 16 % (24-48); MEAN CORPUSCULAR HEMOGLOBIN 35 pg (25-35); MEAN CORPUSCULAR HGB CONC 34 g/dL (31-37); MEAN CORPUSCULAR VOLUME 103 fL (79-100); MONO # 0.5 x10^3/uL (0.0-1.1); MONO % 6 % (0-9); NEUT # 5.7 x10^3/uL (1.8-7.7); NEUT % 73 % (31-73); PLATELET COUNT 147 x10^3/uL (140-400); RED BLOOD COUNT 3.63 x10^6/uL (4.30-5.70); RED CELL DISTRIBUTION WIDTH 17.4 % (11.5-14.5); WHITE BLOOD COUNT 7.7 x10^3/uL (4.0-11.0)
[2021-03-02 10:10] LABS: CALCIUM 9.2 mg/dL (8.5-10.1); CREATININE 11.1 mg/dL (0.7-1.3); GFR 4.8; POTASSIUM 5.3 mmol/L (3.5-5.1)
[2021-03-02 11:00] VITALS: BP 124/55
[2021-03-02] MEDS: CARVEDILOL 12.5 MG TABLET. PO SCH ×2 (12:38→21:12)
[2021-03-02] MEDS: ASPIRIN CHEWABLE 81 MG TABLET. PO SCH (12:38)
[2021-03-02] MEDS: ISOSORBIDE MONONITRATE ER 30 MG TAB.ER.24H PO SCH (12:38)
[2021-03-02] MEDS: PANTOPRAZOLE 40 MG TABLET.DR. PO SCH (12:38)
--- NOTE | 2021-03-02 12:46 | PDOC1 ---
History and Physical Date of Service: DOS: DATE: 03/02/21 TIME: 12:38 Chief Complaint: Problems: (1) Arterial ischemic stroke, MCA, left, acute (2) ESRD (end stage renal disease) (3) Person under investigation for COVID-19 History of Present Illness: HPI: History and physical from emergency room "Patient is a 55 year old male with a history of high cholesterol, hypertension, CVA with no deficits, end-stage kidney disease on dialysis Tuesday last dialyzed yesterday who presents to the ED today to be dary luated after eating spaghetti and developing nausea and vomiting. Patient's mother is doing most of the speaking. Patient himself chooses when to talk. He appears sleepy but arousable. He is refusing to cooperate and give us any information. Mother states patient had gone to help his brother work on her vehicle this morning. She states patient came home around noon. She states patient's brother had made spicy spaghetti sauce. She states patient decided to make spaghetti noodles. When they were ready he started eating roughly around 2 PM and before he got to far into the meal he started vomiting. Mother states patient had a CVA in September 2020, he was seen at [facility]. She states they did clot retrieval and he was sent home after 2 days. Mother states patient received Covid vaccine a couple months ago." Only other information patient was able to provide me was that he had a stroke a few months ago has not had any residual deficits. Also had another stroke prior to that and sounds like they did embolectomy during that admission. Reports compliance with medications. Says his ESRD was caused by hypertension. Overall is a very poor historian. He says he is doing fine now and is ready for discharge. Advised him staying for MRI and neurology evaluation would be in his best interest medically, he said he will plan to stay for this. Past Medical/Surgical History: PMH/PSH: CVA, High Cholesterol, Hypertension, Renal Failure, ESRD Allergies: Allergies: Coded Allergies: No Known Drug Allergies (Unverified , 08/23/17) Family History: Family History: Hypertension Social History: Social History: Daily smoker, occasional alcohol use. Previous use of cocaine. Current Medications: Current Medications Current Medications Ondansetron HCl (Zofran) 4 mg 1X ONCE IVP Last administered on 03/01/21at 17:37; Start 03/01/21 at 17:00; Stop 03/01/21 at 17:10; Status DC Sodium Chloride 500 ml @ 500 mls/hr 1X ONCE IV Last administered on 03/01/21at 17:30; Start 03/01/21 at 17:00; Stop 03/01/21 at 17:59; Status DC Labetalol HCl (Normodyne Iv Push) 10 mg 1X ONCE IVP Last administered on 03/01/21at 18:48; Start 03/01/21 at 19:00; Stop 03/01/21 at 19:01; Status DC Prochlorperazine Edisylate (Compazine) 10 mg 1X ONCE IV Last administered on 03/01/21at 18:47; Start 03/01/21 at 19:00; Stop 03/01/21 at 19:01; Status DC Ondansetron HCl (Zofran) 4 mg PRN Q8HRS PRN IVP NAUSEA/VOMITING; Start 03/01/21 at 21:30; Stop 03/02/21 at 21:29 Fentanyl Citrate (Fentanyl 2ml Vial) 50 mcg PRN Q1HR PRN IVP PAIN; Start 03/01/21 at 21:30; Stop 03/02/21 at 21:29 Aspirin (Concepcion Aspirin) 325 mg 1X ONCE PO Last administered on 03/02/21at 00:09; Start 03/01/21 at 21:30; Stop 03/01/21 at 21:31; Status DC Aspirin (Aspirin Chewable) 81 mg DAILY PO ; Start 03/02/21 at 12:00 Atorvastatin Calcium (Lipitor) 20 mg QHS PO ; Start 03/02/21 at 21:00 Carvedilol (Coreg) 12.5 mg BIDWMEALS PO ; Start 03/02/21 at 12:00 Isosorbide Mononitrate (Imdur) 30 mg DAILY PO ; Start 03/02/21 at 12:00 Pantoprazole Sodium (Protonix) 40 mg DAILY PO ; Start 03/02/21 at 12:00 Amlodipine Besylate (Norvasc) 2.5 mg DAILY PO ; Start 03/02/21 at 12:00 Active Scripts Active Isosorbide Mononitrate Er (Isosorbide Mononitrate) 30 Mg Tab.er.24h 30 Mg PO DAILY Atorvastatin Calcium 20 Mg Tablet 20 Mg PO QHS Carvedilol (Carvedilol) 12.5 Mg Tablet 12.5 Mg PO BIDWMEALS Amlodipine Besylate 2.5 Mg Tablet 2.5 Mg PO DAILY Reported Aspirin 81 Mg Tab.chew 1 Tab PO DAILY Hydralazine Hcl 25 Mg Tablet 1 Tab PO BID Ferric Citrate 210 Mg Tablet 2 Tab PO TIDWMEALS Pantoprazole Sodium 40 Mg Tablet.dr 40 Mg PO DAILY Calcium Acetate 667 Mg Tablet 1 Tab PO TIDWMEALS 30 Days ROS: Review of Systems Review of System Negative unless noted in HPI Physical Exam: Vital Signs: Vital Signs Date Time Temp Pulse Resp B/P (MAP) Pulse Ox O2 Delivery O2 Flow Rate FiO2 03/02/21 07:00 98.2 73 18 149/82 (104) 98 98.2 03/02/21 03:07 Room Air Physcial Exam: GEN: No apparent distress. Alert and oriented HEENT: Normal cephalic, atraumatic, external auditory canals are patent, poor dentition EYES: Extraocular muscles are intact, pupil are equally round and reactive to light and accommodation MUSCULOSKELETAL: Well developed , well nourished, good range of motion ENDOCRINE: No thyromegaly was palpated LYMPHATICS: No cervical chain or axillary nodes were noted HEMATOPOIETIC: No bruising NECK: Supple, no JVD, no thyromegaly was noted LUNGS: Clear to auscultation in all lung pa without rhonchi or wheezing HEART: RRR, S!, S2 present. Peripheral pulses intact, no obvious murmurs noted ABDOMEN: Soft, nontender. Positive bowel sounds, no organomegaly, normal bowel sounds EXTREMITIES: Without clubbing, cyanosis, or edema. Pedal pulses intact. NEUROLOGIC: Normal speech and tone. A&O x 3, moves all extremities, no obvious focal deficits PSYCHIATRIC: Normal affect, normal mood. Stable SKIN: No ulcerations or rashes, good skin turgor, no jaundice VASCULAR: Good capillary refill, neurovascular bundle appears to be intact Labs: Labs: Laboratory Tests Test 03/01/21 16:46 03/01/21 18:15 03/01/21 18:30 03/01/21 18:40 Glucose (Fingerstick) 141 mg/dL (70-99) Lactic Acid Level 2.7 mmol/L (0.4-2.0) White Blood Count 14.1 x10^3/uL (4.0-11.0) Red Blood Count 4.31 x10^6/uL (4.30-5.70) Hemoglobin 14.8 g/dL (13.0-17.5) Hematocrit 44.6 % (39.0-53.0) Mean Corpuscular Volume 104 fL (79-100) Mean Corpuscular Hemoglobin 35 pg (25-35) Mean Corpuscular Hemoglobin Concent 33 g/dL (31-37) Red Cell Distribution Width 17.2 % (11.5-14.5) Platelet Count 152 x10^3/uL (140-400) Neutrophils (%) (Auto) 85 % (31-73) Lymphocytes (%) (Auto) 7 % (24-48) Monocytes (%) (Auto) 6 % (0-9) Eosinophils (%) (Auto) 1 % (0-3) Basophils (%) (Auto) 1 % (0-3) Neutrophils # (Auto) 12.0 x10^3/uL (1.8-7.7) Lymphocytes # (Auto) 1.0 x10^3/uL (1.0-4.8) Monocytes # (Auto) 0.8 x10^3/uL (0.0-1.1) Eosinophils # (Auto) 0.2 x10^3/uL (0.0-0.7) Basophils # (Auto) 0.1 x10^3/uL (0.0-0.2) Segmented Neutrophils % 81 % (35-66) Band Neutrophils % 3 % (0-9) Lymphocytes % 6 % (24-48) Monocytes % 6 % (0-10) Eosinophils % 3 % (0-5) Basophils % 1 % (0-3) Platelet Estimate Adequate (ADEQUATE) Anisocytosis Slight Sodium Level 139 mmol/L (136-145) Potassium Level 4.6 mmol/L (3.5-5.1) Chloride Level 100 mmol/L (98-107) Carbon Dioxide Level 25 mmol/L (21-32) Anion Gap 14 (6-14) Blood Urea Nitrogen 37 mg/dL (8-26) Creatinine 10.1 mg/dL (0.7-1.3) Estimated GFR (Cockcroft-Gault) 5.4 BUN/Creatinine Ratio 4 (6-20) Glucose Level 112 mg/dL (70-99) Calcium Level 9.6 mg/dL (8.5-10.1) Magnesium Level 2.1 mg/dL (1.8-2.4) Total Bilirubin 0.5 mg/dL (0.2-1.0) Aspartate Amino Transf (AST/SGOT) 11 U/L (15-37) Alanine Aminotransferase (ALT/SGPT) 19 U/L (16-63) Alkaline Phosphatase 116 U/L (46-116) Troponin I Quantitative < 0.017 ng/mL (0.000-0.055) FI-Dxf-P-Type Natriuretic Peptide 2596 pg/mL (0-124) Total Protein 7.5 g/dL (6.4-8.2) Albumin 4.0 g/dL (3.4-5.0) Albumin/Globulin Ratio 1.1 (1.0-1.7) Lipase 196 U/L (73-393) Thyroid Stimulating Hormone (TSH) 2.181 uIU/mL (0.358-3.74) Test 03/01/21 20:30 03/01/21 23:05 03/01/21 23:30 03/02/21 09:00 Troponin I Quantitative < 0.017 ng/mL (0.000-0.055) < 0.017 ng/mL (0.000-0.055) Lactic Acid Level 0.9 mmol/L (0.4-2.0) White Blood Count 7.7 x10^3/uL (4.0-11.0) Red Blood Count 3.63 x10^6/uL (4.30-5.70) Hemoglobin 12.5 g/dL (13.0-17.5) Hematocrit 37.2 % (39.0-53.0) Mean Corpuscular Volume 103 fL (79-100) Mean Corpuscular Hemoglobin 35 pg (25-35) Mean Corpuscular Hemoglobin Concent 34 g/dL (31-37) Red Cell Distribution Width 17.4 % (11.5-14.5) Platelet Count 147 x10^3/uL (140-400) Neutrophils (%) (Auto) 73 % (31-73) Lymphocytes (%) (Auto) 16 % (24-48) Monocytes (%) (Auto) 6 % (0-9) Eosinophils (%) (Auto) 4 % (0-3) Basophils (%) (Auto) 1 % (0-3) Neutrophils # (Auto) 5.7 x10^3/uL (1.8-7.7) Lymphocytes # (Auto) 1.2 x10^3/uL (1.0-4.8) Monocytes # (Auto) 0.5 x10^3/uL (0.0-1.1) Eosinophils # (Auto) 0.3 x10^3/uL (0.0-0.7) Basophils # (Auto) 0.0 x10^3/uL (0.0-0.2) Sodium Level 144 mmol/L (136-145) Potassium Level 5.3 mmol/L (3.5-5.1) Chloride Level 104 mmol/L (98-107) Carbon Dioxide Level 27 mmol/L (21-32) Anion Gap 13 (6-14) Blood Urea Nitrogen 41 mg/dL (8-26) Creatinine 11.1 mg/dL (0.7-1.3) Estimated GFR (Cockcroft-Gault) 4.8 Glucose Level 83 mg/dL (70-99) Calcium Level 9.2 mg/dL (8.5-10.1) Laboratory Tests Test 03/01/21 16:46 03/01/21 18:15 03/01/21 18:30 03/01/21 18:40 Glucose (Fingerstick) 141 mg/dL (70-99) Lactic Acid Level 2.7 mmol/L (0.4-2.0) White Blood Count 14.1 x10^3/uL (4.0-11.0) Red Blood Count 4.31 x10^6/uL (4.30-5.70) Hemoglobin 14.8 g/dL (13.0-17.5) Hematocrit 44.6 % (39.0-53.0) Mean Corpuscular Volume 104 fL (79-100) Mean Corpuscular Hemoglobin 35 pg (25-35) Mean Corpuscular Hemoglobin Concent 33 g/dL (31-37) Red Cell Distribution Width 17.2 % (11.5-14.5) Platelet Count 152 x10^3/uL (140-400) Neutrophils (%) (Auto) 85 % (31-73) Lymphocytes (%) (Auto) 7 % (24-48) Monocytes (%) (Auto) 6 % (0-9) Eosinophils (%) (Auto) 1 % (0-3) Basophils (%) (Auto) 1 % (0-3) Neutrophils # (Auto) 12.0 x10^3/uL (1.8-7.7) Lymphocytes # (Auto) 1.0 x10^3/uL (1.0-4.8) Monocytes # (Auto) 0.8 x10^3/uL (0.0-1.1) Eosinophils # (Auto) 0.2 x10^3/uL (0.0-0.7) Basophils # (Auto) 0.1 x10^3/uL (0.0-0.2) Segmented Neutrophils % 81 % (35-66) Band Neutrophils % 3 % (0-9) Lymphocytes % 6 % (24-48) Monocytes % 6 % (0-10) Eosinophils % 3 % (0-5) Basophils % 1 % (0-3) Platelet Estimate Adequate (ADEQUATE) Anisocytosis Slight Sodium Level 139 mmol/L (136-145) Potassium Level 4.6 mmol/L (3.5-5.1) Chloride Level 100 mmol/L (98-107) Carbon Dioxide Level 25 mmol/L (21-32) Anion Gap 14 (6-14) Blood Urea Nitrogen 37 mg/dL (8-26) Creatinine 10.1 mg/dL (0.7-1.3) Estimated GFR (Cockcroft-Gault) 5.4 BUN/Creatinine Ratio 4 (6-20) Glucose Level 112 mg/dL (70-99) Calcium Level 9.6 mg/dL (8.5-10.1) Magnesium Level 2.1 mg/dL (1.8-2.4) Total Bilirubin 0.5 mg/dL (0.2-1.0) Aspartate Amino Transf (AST/SGOT) 11 U/L (15-37) Alanine Aminotransferase (ALT/SGPT) 19 U/L (16-63) Alkaline Phosphatase 116 U/L (46-116) Troponin I Quantitative < 0.017 ng/mL (0.000-0.055) XB-Knz-P-Type Natriuretic Peptide 2596 pg/mL (0-124) Total Protein 7.5 g/dL (6.4-8.2) Albumin 4.0 g/dL (3.4-5.0) Albumin/Globulin Ratio 1.1 (1.0-1.7) Lipase 196 U/L (73-393) Thyroid Stimulating Hormone (TSH) 2.181 uIU/mL (0.358-3.74) Test 03/01/21 20:30 03/01/21 23:05 03/01/21 23:30 03/02/21 09:00 Troponin I Quantitative < 0.017 ng/mL (0.000-0.055) < 0.017 ng/mL (0.000-0.055) Lactic Acid Level 0.9 mmol/L (0.4-2.0) White Blood Count 7.7 x10^3/uL (4.0-11.0) Red Blood Count 3.63 x10^6/uL (4.30-5.70) Hemoglobin 12.5 g/dL (13.0-17.5) Hematocrit 37.2 % (39.0-53.0) Mean Corpuscular Volume 103 fL (79-100) Mean Corpuscular Hemoglobin 35 pg (25-35) Mean Corpuscular Hemoglobin Concent 34 g/dL (31-37) Red Cell Distribution Width 17.4 % (11.5-14.5) Platelet Count 147 x10^3/uL (140-400) Neutrophils (%) (Auto) 73 % (31-73) Lymphocytes (%) (Auto) 16 % (24-48) Monocytes (%) (Auto) 6 % (0-9) Eosinophils (%) (Auto) 4 % (0-3) Basophils (%) (Auto) 1 % (0-3) Neutrophils # (Auto) 5.7 x10^3/uL (1.8-7.7) Lymphocytes # (Auto) 1.2 x10^3/uL (1.0-4.8) Monocytes # (Auto) 0.5 x10^3/uL (0.0-1.1) Eosinophils # (Auto) 0.3 x10^3/uL (0.0-0.7) Basophils # (Auto) 0.0 x10^3/uL (0.0-0.2) Sodium Level 144 mmol/L (136-145) Potassium Level 5.3 mmol/L (3.5-5.1) Chloride Level 104 mmol/L (98-107) Carbon Dioxide Level 27 mmol/L (21-32) Anion Gap 13 (6-14) Blood Urea Nitrogen 41 mg/dL (8-26) Creatinine 11.1 mg/dL (0.7-1.3) Estimated GFR (Cockcroft-Gault) 4.8 Glucose Level 83 mg/dL (70-99) Calcium Level 9.2 mg/dL (8.5-10.1) Assessment/Plan Assessment/Plan Left MCA stroke, ESRD, hypertension, hyperlipidemia, tobacco abuse -Patient came in overnight 1 day history nausea and vomiting and altered mental status -CT scan performed emergency room shows likely acute left MCA stroke -Recommended MRI for follow but this is pending currently. -Neurology consulted -Discussed tobacco cessation with the patient and medication compliance along with advanced care planning -Nephrology consulted due to patient's history of ESRD on dialysis Home meds resumed as indicated Renal diet Further recommendations per nephro and neurology Justifications for Admission Other Justification SHEFALI PATEL MD Mar 02, 2021 12:46
--- NOTE | 2021-03-02 14:53 | CONS ---
DATE OF CONSULTATION: 03/02/2021 NEPHROLOGY CONSULTATION REQUESTING PHYSICIAN: Hospitalist. REASON FOR CONSULTATION: Renal failure. HISTORY OF PRESENT ILLNESS: This is a 55-year-old gentleman well known to this physician with history of hypertension, end-stage renal disease, hemodialysis dependent, Tuesday, , Tuesday schedule. The patient is currently admitted having had nausea, vomiting. Head CT reveals acute CVA. He has been evaluated for further evaluation and management. He has had previous CVA in 09/2020. PAST MEDICAL HISTORY: Hypertension; hyperlipidemia; CVA; end-stage renal disease on hemodialysis dependent, Tuesday, and Tuesday; anemia of chronic kidney disease; secondary hyperparathyroidism of renal disease. He did receive COVID vaccine. Vascular access placement. ALLERGIES: None. MEDICATIONS: Reviewed per medication list. FAMILY HISTORY: Noncontributory. SOCIAL HISTORY: The patient resides with assistance from family. REVIEW OF SYSTEMS: CONSTITUTIONAL: No fever or chills. EYES: No change in vision. HENT: No nasal congestion, sore throat. RESPIRATORY: No cough, shortness of breath. CARDIOVASCULAR: No chest pain, or edema. GASTROINTESTINAL: Did have nausea, vomiting. No upper or lower gastrointestinal blood loss, or diarrhea. GENITOURINARY: No dysuria. MUSCULOSKELETAL: No back pain or joint pain. INTEGUMENTARY: No rashes or skin cancers. NEUROLOGIC: No focal weakness. PSYCHIATRIC: No depression or anxiety. PHYSICAL EXAMINATION: GENERAL APPEARANCE: Due to PUI COVID-19, bedside examination not pursued. LABORATORY DATA: Hemoglobin 12.5, hematocrit 37, white count 7.7. Sodium 144, potassium 5.3, chloride 104, CO2 of 27, BUN 41, creatinine 11.1, GFR 4.8. IMPRESSION: 1. End-stage renal disease secondary to hypertensive nephrosclerosis -- hemodialysis dependent, Tuesday, , Tuesday. 2. Anemia of chronic kidney disease, well controlled. 3. History of cerebrovascular accident, now with acute cerebrovascular accident. RECOMMENDATIONS: 1. Ongoing dialysis Tuesday, and Tuesday. 2. Neurology evaluation is pending. We will follow. CHYNA DR: Nataliia TID: [id number]
[2021-03-02 15:00] VITALS: BP 159/71
--- NOTE | 2021-03-02 16:14 | RAD ---
MRI of the brain without contrast 03/02/2021 Clinical History: Altered mental status. CVA. Technique: Unenhanced T1-weighted sagittal and axial, T2-weighted axial and coronal and FLAIR, gradie nt echo and diffusion-weighted axial images of the brain were obtained. Findings: Comparison is made to patient's CT scan of the head dated 03/01/2021. There is generalized parenchymal atrophy. Patchy and several small scattered areas of increased signa l intensity are seen within the periventricular and subcortical white matter of both cerebral hemisph eres on the FLAIR and T2-weighted images consistent with areas of small vessel ischemic disease. An o ld area infarction is seen involving the left frontotemporal lobe. This measures 7.5 cm in greatest d iameter. No acute parenchymal abnormality is seen. No extra-axial fluid collection is noted. There is no MRI evidence of acute ischemia/infarction. Mild mucosal thickening is seen scattered throughout the paranasal sinuses. Normal flow voids are see n within the major vascular structures surrounding the brain parenchyma. A 1.5 [address] retention [address] and/or polyp is seen involving the right aspect of the sphenoid sinus. IMPRESSION: 1. Old area infarction is seen involving left frontotemporal lobe. 2. No acute parenchymal abnormality is seen. Electronically signed by: Bryce Flores MD (03/02/2021 4:11 PM) [id number]
[2021-03-02 19:53] VITALS: BP 142/67
--- NOTE | 2021-03-02 20:12 | CONS ---
DATE OF CONSULTATION: 03/02/2021 REFERRING PHYSICIAN: Mickey Renner MD REASON FOR CONSULTATION: Possible new stroke. HISTORY OF PRESENT ILLNESS: The patient is a 55-year-old man who presented to the emergency room after eating spaghetti and developing nausea and vomiting. This has since resolved. He has history of hyperlipidemia, hypertension, end-stage kidney disease, on hemodialysis and strokes. The most recent stroke was 09/2020. He reports that with one of his strokes, he did develop right-sided weakness and difficulty walking, but the symptoms resolved. In the emergency room, a CT scan of the head was reported as subacute stroke. PAST MEDICAL HISTORY: 1. History of strokes. 2. Hyperlipidemia. 3. Hypertension. 4. End-stage renal disease, on hemodialysis. ALLERGIES: No known allergies to drugs. MEDICATIONS PRIOR TO ADMISSION: Amlodipine 2.5 mg, aspirin 81 mg, atorvastatin 20 mg, calcium carbonate 667 mg 3 times a day with meals, carvedilol 12.5 mg twice per day with meals, ferric citrate two tablets three times a day with meals, hydralazine 25 mg twice per day, isosorbide mononitrate 30 mg and pantoprazole 40 mg. FAMILY HISTORY: Hypertension. SOCIAL HISTORY: He is a daily smoker. He drinks occasional alcohol. He has a history of cocaine usage. He lives with his mother. REVIEW OF SYSTEMS: He does not complain of any headache. He is not aware of any change of vision or hearing. He has not had trouble swallowing. He has not had shortness of breath, cough or cold. He is not having chest pain. He was having abdominal pain, nausea and vomiting, which has resolved. He has not had fever or rash. No genitourinary complaint. Does not complain of numbness or weakness. Does not complain of difficulty walking. He is not aware of any psychiatric concerns. He does not complain of bruising, bleeding or swelling. PHYSICAL EXAMINATION: VITAL SIGNS: The blood pressure was 159/71, pulse 66, respirations 18, temperature 98.1 degrees Fahrenheit orally. Oximetry was 97% on room air. His weight was 69.8 kilograms, height 64 inches with a calculated body mass index of 26.4. GENERAL: He was alert, awake and cooperative. NEUROLOGIC: Speech was fluent and clear. He had a good fund of recent and remote knowledge. Attention and concentration was intact. He appeared well-groomed and well nourished. He was oriented. Examination of the cranial nerves revealed visual pa were full to confrontation. Extraocular movements were intact. The eyes were conjugate. Pursuit movements were smooth and saccadic eye movements were without dysmetria. Pupils were 3 mm. Facial sensation was intact. The muscles of mastication and facial expression were symmetric. Hearing was intact to finger rub. The palate arched symmetrically and the tongue was midline. He had some diminished hearing on the right ear. Muscle bulk and tone was normal. There was no arm or leg drift. The power was full and symmetric in the upper and lower extremities. Reflexes are 1/4 in the upper extremities, 2/4 at the knees and ankles. Toes were not upgoing. Coordination testing with [id number], heel to hodge, fine motor and rapid alternating movements was fairly well performed. Sensory examination was intact to light touch, proprioception, graphesthesia, cold thermal and vibration. The gait was normal base and steady. He was able to heel and toe walk. The Romberg stance was negative. Peripheral pulses were 2/4 and symmetric in upper and lower extremities. There was no edema or cyanosis. LABORATORY RESULTS: CBC was performed 03/02/2021, revealing a normal white blood cell count and platelet count. Hemoglobin was diminished to 12.5 and hematocrit 37.2. Chemistries were performed 03/02/2021. This revealed normal sodium, chloride, and CO2, but potassium was elevated to 5.3. BUN was 41 and creatinine 11.1. Glucose was 83 and calcium 9.2. Troponin was not elevated. TSH was normal. BNP was elevated at 2596. Total protein and albumin were normal. Magnesium was normal. Liver enzymes were not elevated. DIAGNOSTIC RESULTS: CT scan of the head was performed 03/01/2021. There were no focal parenchymal lesions or hemorrhages. There was no midline shift or sulcal effacement. There was a stroke in the left middle cerebral artery distribution in the frontoparietal region, which was new compared to a study of 02/02/2020. Radiologist called this subacute. Of note is that the ventricles in the left hemisphere were dilated suggesting this was more of a chronic process with ex vacuo dilation of the ventricles. MRI brain was performed without contrast on 03/02/2021. This revealed the old stroke of the left frontoparietal region and no acute process. There was generalized parenchymal atrophy. There was chronic small vessel disease. Chest x-ray was performed on 03/01/2021 revealing no acute pulmonary infiltrate. Abdominal and pelvic CAT scan was performed 03/01/2021 revealing no acute process within the abdomen or pelvis. There were chronic atrophic appearance of the kidneys. There was trace right pleural effusion with adjacent stranding like atelectasis. IMPRESSION: The patient is a 55-year-old man with end-stage renal disease on hemodialysis, hypercholesterolemia, hypertension and history of multiple strokes. His nausea and vomiting have fully resolved. I am relieved that the CAT scan of the head and the MRI did not reveal an acute process. Clinically, he has recovered well from the left middle cerebral artery stroke. I suspect some of his behavior is related to the previous stroke. I do not specifically see numbness or weakness. He does not appear to have aphasia. RECOMMENDATIONS: He may be dismissed from a neurologic perspective when medically stable. He should follow up with his neurologist at [facility] as they may want to periodically do surveillance carotid Dopplers or cardiac followup with hypertension. I appreciate being involved in his care. REJI DR: Jaspreet TID: [id number] CC: MARY CALABRESE MD
[2021-03-02] MEDS ORDERED: ATORVASTATIN CALCIUM 20 MG TABLET PO SCH (21:00)
[2021-03-02 23:06] VITALS: BP 146/70
[2021-03-03 03:35] VITALS: BP 143/71
[2021-03-03 07:00] VITALS: BP 154/79
[2021-03-03 07:26] LABS: ALBUMIN 3.2 g/dL (3.4-5.0); ALK PHOS 95 U/L (46-116); ALT (SGPT) 22 U/L (16-63); ANION GAP 15 (6-14); AST (SGOT) < 5 U/L (15-37); BLOOD UREA NITROGEN 48 mg/dL (8-26); BUN/CREATININE RATIO 4 (6-20); CALCIUM 8.8 mg/dL (8.5-10.1); CARBON DIOXIDE 26 mmol/L (21-32); CHLORIDE 101 mmol/L (98-107); CREATININE 13.2 mg/dL (0.7-1.3); GLUCOSE 111 mg/dL (70-99); SODIUM 142 mmol/L (136-145); TOTAL BILIRUBIN 0.3 mg/dL (0.2-1.0); TOTAL PROTEIN 6.3 g/dL (6.4-8.2)
[2021-03-03 07:27] LABS: POTASSIUM 5.9 mmol/L (3.5-5.1)
--- NOTE | 2021-03-03 10:36 | PDOC ---
Renal-Progress Notes Subjective Notes Notes NO NEW COMPLAINTS History of Present Illness Hx of present illness CONFUSED Vitals Vitals Vital Signs Date Time Temp Pulse Resp B/P (MAP) Pulse Ox O2 Delivery O2 Flow Rate FiO2 03/03/21 07:00 96.8 64 20 154/79 (104) 97 Room Air 96.8 Weight Weight [ ] I.O. Intake and Output Intake and Output 03/03/21 07:00 Intake Total 750 ml Output Total 500 ml Balance 250 ml Intake Oral 750 ml Output Urine Total 500 ml # Voids 2 Labs Labs Laboratory Tests Test 03/03/21 06:45 Sodium Level 142 mmol/L (136-145) Potassium Level 5.9 mmol/L (3.5-5.1) Chloride Level 101 mmol/L (98-107) Carbon Dioxide Level 26 mmol/L (21-32) Anion Gap 15 (6-14) Blood Urea Nitrogen 48 mg/dL (8-26) Creatinine 13.2 mg/dL (0.7-1.3) Estimated GFR (Cockcroft-Gault) 4.0 BUN/Creatinine Ratio 4 (6-20) Glucose Level 111 mg/dL (70-99) Calcium Level 8.8 mg/dL (8.5-10.1) Total Bilirubin 0.3 mg/dL (0.2-1.0) Aspartate Amino Transf (AST/SGOT) < 5 U/L (15-37) Alanine Aminotransferase (ALT/SGPT) 22 U/L (16-63) Alkaline Phosphatase 95 U/L (46-116) Total Protein 6.3 g/dL (6.4-8.2) Albumin 3.2 g/dL (3.4-5.0) Albumin/Globulin Ratio 1.0 (1.0-1.7) Micro Micro Microbiology 03/01/21 Blood Culture - Preliminary, Resulted NO GROWTH AFTER 1 DAY Review of Systems Constitutional: yes: other (CONFUSED) Physical Exam General Appearance: no apparent distress Respiratory: bilateral CTA Heart: S1S2 Abdomen: soft, bowel sounds present Genitourinary: bladder flat Extremities: pulses present Neurology: alert, confused Assessment Assessment IMP ESRD ANEMIA HTN ENCEPHALOPATHY PLAN HD TODAY UF TO TW NEURO EVAL AND TX WILL FOLLOW KYA REES MD Mar 03, 2021 10:36
[2021-03-03] MEDS: ISOSORBIDE MONONITRATE ER 30 MG TAB.ER.24H PO SCH (10:53)
[2021-03-03] MEDS: ASPIRIN CHEWABLE 81 MG TABLET. PO SCH (10:53)
[2021-03-03] MEDS: CARVEDILOL 12.5 MG TABLET. PO SCH (10:54)
[2021-03-03] MEDS: PANTOPRAZOLE 40 MG TABLET.DR. PO SCH (10:54)
[2021-03-03 11:00] VITALS: BP 138/79
--- NOTE | 2021-03-03 13:17 | NUR ---
SW following. Discussed with RN. Pt from home with parents. Had been refusing COVID swab. Per Dr. Avitia, pt can discharge home after dialysis. SW will continue to follow.
--- NOTE | 2021-03-03 13:58 | PDOC3 ---
Discharge Summary Visit Information Date of Admission: Mar 02, 2021 Date of Discharge: Mar 03, 2021 Admitting Diagnosis: N/V concern for CVA Final Diagnosis Problems Medical Problems: (1) Nausea and vomiting Status: Acute Brief Hospital Course Allergies Allergies Coded Allergies Type Severity Reaction Last Updated Verified No Known Drug Allergies 08/23/17 No Vital Signs Vital Signs Date Time Temp Pulse Resp B/P (MAP) Pulse Ox O2 Delivery O2 Flow Rate FiO2 03/03/21 11:00 97.6 74 18 138/79 (98) 97 Room Air 97.6 Lab Results Laboratory Tests Test 03/01/21 16:46 03/01/21 18:15 03/01/21 18:30 03/01/21 18:40 Glucose (Fingerstick) 141 mg/dL (70-99) Lactic Acid Level 2.7 mmol/L (0.4-2.0) White Blood Count 14.1 x10^3/uL (4.0-11.0) Red Blood Count 4.31 x10^6/uL (4.30-5.70) Hemoglobin 14.8 g/dL (13.0-17.5) Hematocrit 44.6 % (39.0-53.0) Mean Corpuscular Volume 104 fL (79-100) Mean Corpuscular Hemoglobin 35 pg (25-35) Mean Corpuscular Hemoglobin Concent 33 g/dL (31-37) Red Cell Distribution Width 17.2 % (11.5-14.5) Platelet Count 152 x10^3/uL (140-400) Neutrophils (%) (Auto) 85 % (31-73) Lymphocytes (%) (Auto) 7 % (24-48) Monocytes (%) (Auto) 6 % (0-9) Eosinophils (%) (Auto) 1 % (0-3) Basophils (%) (Auto) 1 % (0-3) Neutrophils # (Auto) 12.0 x10^3/uL (1.8-7.7) Lymphocytes # (Auto) 1.0 x10^3/uL (1.0-4.8) Monocytes # (Auto) 0.8 x10^3/uL (0.0-1.1) Eosinophils # (Auto) 0.2 x10^3/uL (0.0-0.7) Basophils # (Auto) 0.1 x10^3/uL (0.0-0.2) Segmented Neutrophils % 81 % (35-66) Band Neutrophils % 3 % (0-9) Lymphocytes % 6 % (24-48) Monocytes % 6 % (0-10) Eosinophils % 3 % (0-5) Basophils % 1 % (0-3) Platelet Estimate Adequate (ADEQUATE) Anisocytosis Slight Sodium Level 139 mmol/L (136-145) Potassium Level 4.6 mmol/L (3.5-5.1) Chloride Level 100 mmol/L (98-107) Carbon Dioxide Level 25 mmol/L (21-32) Anion Gap 14 (6-14) Blood Urea Nitrogen 37 mg/dL (8-26) Creatinine 10.1 mg/dL (0.7-1.3) Estimated GFR (Cockcroft-Gault) 5.4 BUN/Creatinine Ratio 4 (6-20) Glucose Level 112 mg/dL (70-99) Calcium Level 9.6 mg/dL (8.5-10.1) Magnesium Level 2.1 mg/dL (1.8-2.4) Total Bilirubin 0.5 mg/dL (0.2-1.0) Aspartate Amino Transf (AST/SGOT) 11 U/L (15-37) Alanine Aminotransferase (ALT/SGPT) 19 U/L (16-63) Alkaline Phosphatase 116 U/L (46-116) Troponin I Quantitative < 0.017 ng/mL (0.000-0.055) MX-Iii-U-Type Natriuretic Peptide 2596 pg/mL (0-124) Total Protein 7.5 g/dL (6.4-8.2) Albumin 4.0 g/dL (3.4-5.0) Albumin/Globulin Ratio 1.1 (1.0-1.7) Lipase 196 U/L (73-393) Thyroid Stimulating Hormone (TSH) 2.181 uIU/mL (0.358-3.74) Test 03/01/21 20:30 03/01/21 23:05 03/01/21 23:30 03/02/21 09:00 Troponin I Quantitative < 0.017 ng/mL (0.000-0.055) < 0.017 ng/mL (0.000-0.055) Lactic Acid Level 0.9 mmol/L (0.4-2.0) White Blood Count 7.7 x10^3/uL (4.0-11.0) Red Blood Count 3.63 x10^6/uL (4.30-5.70) Hemoglobin 12.5 g/dL (13.0-17.5) Hematocrit 37.2 % (39.0-53.0) Mean Corpuscular Volume 103 fL (79-100) Mean Corpuscular Hemoglobin 35 pg (25-35) Mean Corpuscular Hemoglobin Concent 34 g/dL (31-37) Red Cell Distribution Width 17.4 % (11.5-14.5) Platelet Count 147 x10^3/uL (140-400) Neutrophils (%) (Auto) 73 % (31-73) Lymphocytes (%) (Auto) 16 % (24-48) Monocytes (%) (Auto) 6 % (0-9) Eosinophils (%) (Auto) 4 % (0-3) Basophils (%) (Auto) 1 % (0-3) Neutrophils # (Auto) 5.7 x10^3/uL (1.8-7.7) Lymphocytes # (Auto) 1.2 x10^3/uL (1.0-4.8) Monocytes # (Auto) 0.5 x10^3/uL (0.0-1.1) Eosinophils # (Auto) 0.3 x10^3/uL (0.0-0.7) Basophils # (Auto) 0.0 x10^3/uL (0.0-0.2) Sodium Level 144 mmol/L (136-145) Potassium Level 5.3 mmol/L (3.5-5.1) Chloride Level 104 mmol/L (98-107) Carbon Dioxide Level 27 mmol/L (21-32) Anion Gap 13 (6-14) Blood Urea Nitrogen 41 mg/dL (8-26) Creatinine 11.1 mg/dL (0.7-1.3) Estimated GFR (Cockcroft-Gault) 4.8 Glucose Level 83 mg/dL (70-99) Calcium Level 9.2 mg/dL (8.5-10.1) Test 03/03/21 06:45 Sodium Level 142 mmol/L (136-145) Potassium Level 5.9 mmol/L (3.5-5.1) Chloride Level 101 mmol/L (98-107) Carbon Dioxide Level 26 mmol/L (21-32) Anion Gap 15 (6-14) Blood Urea Nitrogen 48 mg/dL (8-26) Creatinine 13.2 mg/dL (0.7-1.3) Estimated GFR (Cockcroft-Gault) 4.0 BUN/Creatinine Ratio 4 (6-20) Glucose Level 111 mg/dL (70-99) Calcium Level 8.8 mg/dL (8.5-10.1) Total Bilirubin 0.3 mg/dL (0.2-1.0) Aspartate Amino Transf (AST/SGOT) < 5 U/L (15-37) Alanine Aminotransferase (ALT/SGPT) 22 U/L (16-63) Alkaline Phosphatase 95 U/L (46-116) Total Protein 6.3 g/dL (6.4-8.2) Albumin 3.2 g/dL (3.4-5.0) Albumin/Globulin Ratio 1.0 (1.0-1.7) Laboratory Tests Test 03/03/21 06:45 Sodium Level 142 mmol/L (136-145) Potassium Level 5.9 mmol/L (3.5-5.1) Chloride Level 101 mmol/L (98-107) Carbon Dioxide Level 26 mmol/L (21-32) Anion Gap 15 (6-14) Blood Urea Nitrogen 48 mg/dL (8-26) Creatinine 13.2 mg/dL (0.7-1.3) Estimated GFR (Cockcroft-Gault) 4.0 BUN/Creatinine Ratio 4 (6-20) Glucose Level 111 mg/dL (70-99) Calcium Level 8.8 mg/dL (8.5-10.1) Total Bilirubin 0.3 mg/dL (0.2-1.0) Aspartate Amino Transf (AST/SGOT) < 5 U/L (15-37) Alanine Aminotransferase (ALT/SGPT) 22 U/L (16-63) Alkaline Phosphatase 95 U/L (46-116) Total Protein 6.3 g/dL (6.4-8.2) Albumin 3.2 g/dL (3.4-5.0) Albumin/Globulin Ratio 1.0 (1.0-1.7) Brief Hospital Course The patient is a 55-year-old man who presented to the emergency room after eating spaghetti and developing nausea and vomiting. This has since resolved. He has history of hyperlipidemia, hypertension, end-stage kidney disease, on hemodialysis and strokes. The most recent stroke was 09/2020. He reports that with one of his strokes, he did develop right-sided weakness and difficulty walking, but the symptoms resolved. In the emergency room, a CT scan of the head was reported as subacute stroke. IMPRESSION: The patient is a 55-year-old man with end-stage renal disease on hemodialysis, hypercholesterolemia, hypertension and history of multiple strokes. His nausea and vomiting have fully resolved. I am relieved that the CAT scan of the head and the MRI did not reveal an acute process. Clinically, he has recovered well from the left middle cerebral artery stroke. I suspect some of his behavior is related to the previous stroke. I do not specifically see numbness or weakness. He does not appear to have aphasia. RECOMMENDATIONS: He may be dismissed from a neurologic perspective when medically stable. He should follow up with his neurologist at [facility] as they may want to periodically do surveillance carotid Dopplers or cardiac followup with hypertension. I appreciate being involved in his care. Discharge Information Condition at Discharge: Improved Disposition/Orders: D/C to Home Scheduled Amlodipine Besylate (Amlodipine Besylate) 2.5 Mg Tablet, 2.5 MG PO DAILY, #30 Ref 3 Prescribed by: BUZZ VAZ on 08/09/171157 Last Action: Converted on 03/02/211106 by SHEFALI PATEL MD Aspirin (Aspirin) 81 Mg Tab.chew, 1 TAB PO DAILY for heart, (Reported) Entered as Reported by: ELIGIO CONTI on 03/01/21 1945 Last Action: Continued on 03/02/211106 by SHEFALI PATEL MD Atorvastatin Calcium (Atorvastatin Calcium) 20 Mg Tablet, 20 MG PO QHS, #30 Ref 2 Prescribed by: BUZZ VAZ on 08/09/171157 Last Action: Continued on 03/02/211106 by SHEFALI PATEL MD Calcium Acetate (Calcium Acetate) 667 Mg Tablet, 1 TAB PO TIDWMEALS for dialysis pt for 30 Days, #90 Ref 0 (Reported) Entered as Reported by: LISA OROZCO on 12/25/19 1041 Last Action: HELD on 03/02/211106 by SHEFALI PATEL MD Carvedilol (Carvedilol ) 12.5 Mg Tablet, 12.5 MG PO BIDWMEALS, #60 Ref 2 Prescribed by: BUZZ VAZ on 08/09/17 1158 Last Action: Continued on 03/02/211106 by SHEFALI PATEL MD Ferric Citrate (Ferric Citrate) 210 Mg Tablet, 2 TAB PO TIDWMEALS for dialysis pt, (Reported) Entered as Reported by: LISA OROZCO on 12/25/19 104 Last Action: HELD on 03/02/211106 by SHEFALI PATEL MD Hydralazine Hcl (Hydralazine Hcl) 25 Mg Tablet, 1 TAB PO BID for HTN, #60 Ref 5 (Reported) Entered as Reported by: LISA OROZCO on 12/25/19 104 Last Action: HELD on 03/02/211106 by SHEFALI PATEL MD Isosorbide Mononitrate (Isosorbide Mononitrate Er) 30 Mg Tab.er.24h, 30 MG PO DAILY, #30 Ref 2 Prescribed by: BUZZ VAZ on 08/09/17 1158 Last Action: Continued on 03/02/211106 by SHEFALI PATEL MD Pantoprazole Sodium (Pantoprazole Sodium) 40 Mg Tablet.dr, 40 MG PO DAILY for gerd, (Reported) Entered as Reported by: LISA OROZCO on 12/25/19 1041 Last Action: Continued on 03/02/211106 by SHEFALI PATEL MD Justicifation of Admission Dx: Justifications for Admission: Justification of Admission Dx: N/A SHEFALI PATEL MD Mar 03, 2021 13:58
[2021-03-03] MEDS ORDERED: DIALYSIS PATIENT. MC PRN ×2 (15:15)
--- NOTE | 2021-03-03 15:34 | PDOC ---
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 This and other strokes have been treated at including with middle cerebral artery thrombectomy in September of this year. He has a picture of multi-infarct dementia from the Indigestion from spicy spajuan metti History of hyperlipidemia, hypertension, end-stage kidney disease, on hemodialysis Plan Okay for discharge Follow up with his neurologists at [facility] Subjective No complaints Objective Vital Signs Date Time Temp Pulse Resp B/P (MAP) Pulse Ox O2 Delivery O2 Flow Rate FiO2 03/03/21 11:00 97.6 74 18 138/79 (98) 97 Room Air 97.6 Intake and Output 03/03/21 07:00 Intake Total 750 ml Output Total 500 ml Balance 250 ml Intake Oral 750 ml Output Urine Total 500 ml # Voids 2 PHYSICAL EXAM Alert. Oriented to place and person, and not date. PERRL. EOMI. CN: no focal findings. Muscle tone: normal. Muscle strength: 5/5 DTR: 1+ Plantar reflex: Flexor Gait: not examined in bed. Sensory exam: no abnormal findings. No cerebellar signs elicited. Review of Relevant I have reviewed the following items sara (where applicable) has been applied. Labs Laboratory Tests Test 03/01/21 16:46 03/01/21 18:15 03/01/21 18:30 03/01/21 18:40 Glucose (Fingerstick) 141 mg/dL (70-99) Lactic Acid Level 2.7 mmol/L (0.4-2.0) White Blood Count 14.1 x10^3/uL (4.0-11.0) Red Blood Count 4.31 x10^6/uL (4.30-5.70) Hemoglobin 14.8 g/dL (13.0-17.5) Hematocrit 44.6 % (39.0-53.0) Mean Corpuscular Volume 104 fL (79-100) Mean Corpuscular Hemoglobin 35 pg (25-35) Mean Corpuscular Hemoglobin Concent 33 g/dL (31-37) Red Cell Distribution Width 17.2 % (11.5-14.5) Platelet Count 152 x10^3/uL (140-400) Neutrophils (%) (Auto) 85 % (31-73) Lymphocytes (%) (Auto) 7 % (24-48) Monocytes (%) (Auto) 6 % (0-9) Eosinophils (%) (Auto) 1 % (0-3) Basophils (%) (Auto) 1 % (0-3) Neutrophils # (Auto) 12.0 x10^3/uL (1.8-7.7) Lymphocytes # (Auto) 1.0 x10^3/uL (1.0-4.8) Monocytes # (Auto) 0.8 x10^3/uL (0.0-1.1) Eosinophils # (Auto) 0.2 x10^3/uL (0.0-0.7) Basophils # (Auto) 0.1 x10^3/uL (0.0-0.2) Segmented Neutrophils % 81 % (35-66) Band Neutrophils % 3 % (0-9) Lymphocytes % 6 % (24-48) Monocytes % 6 % (0-10) Eosinophils % 3 % (0-5) Basophils % 1 % (0-3) Platelet Estimate Adequate (ADEQUATE) Anisocytosis Slight Sodium Level 139 mmol/L (136-145) Potassium Level 4.6 mmol/L (3.5-5.1) Chloride Level 100 mmol/L (98-107) Carbon Dioxide Level 25 mmol/L (21-32) Anion Gap 14 (6-14) Blood Urea Nitrogen 37 mg/dL (8-26) Creatinine 10.1 mg/dL (0.7-1.3) Estimated GFR (Cockcroft-Gault) 5.4 BUN/Creatinine Ratio 4 (6-20) Glucose Level 112 mg/dL (70-99) Calcium Level 9.6 mg/dL (8.5-10.1) Magnesium Level 2.1 mg/dL (1.8-2.4) Total Bilirubin 0.5 mg/dL (0.2-1.0) Aspartate Amino Transf (AST/SGOT) 11 U/L (15-37) Alanine Aminotransferase (ALT/SGPT) 19 U/L (16-63) Alkaline Phosphatase 116 U/L (46-116) Troponin I Quantitative < 0.017 ng/mL (0.000-0.055) BR-Yyw-H-Type Natriuretic Peptide 2596 pg/mL (0-124) Total Protein 7.5 g/dL (6.4-8.2) Albumin 4.0 g/dL (3.4-5.0) Albumin/Globulin Ratio 1.1 (1.0-1.7) Lipase 196 U/L (73-393) Thyroid Stimulating Hormone (TSH) 2.181 uIU/mL (0.358-3.74) Test 03/01/21 20:30 03/01/21 23:05 03/01/21 23:30 03/02/21 09:00 Troponin I Quantitative < 0.017 ng/mL (0.000-0.055) < 0.017 ng/mL (0.000-0.055) Lactic Acid Level 0.9 mmol/L (0.4-2.0) White Blood Count 7.7 x10^3/uL (4.0-11.0) Red Blood Count 3.63 x10^6/uL (4.30-5.70) Hemoglobin 12.5 g/dL (13.0-17.5) Hematocrit 37.2 % (39.0-53.0) Mean Corpuscular Volume 103 fL (79-100) Mean Corpuscular Hemoglobin 35 pg (25-35) Mean Corpuscular Hemoglobin Concent 34 g/dL (31-37) Red Cell Distribution Width 17.4 % (11.5-14.5) Platelet Count 147 x10^3/uL (140-400) Neutrophils (%) (Auto) 73 % (31-73) Lymphocytes (%) (Auto) 16 % (24-48) Monocytes (%) (Auto) 6 % (0-9) Eosinophils (%) (Auto) 4 % (0-3) Basophils (%) (Auto) 1 % (0-3) Neutrophils # (Auto) 5.7 x10^3/uL (1.8-7.7) Lymphocytes # (Auto) 1.2 x10^3/uL (1.0-4.8) Monocytes # (Auto) 0.5 x10^3/uL (0.0-1.1) Eosinophils # (Auto) 0.3 x10^3/uL (0.0-0.7) Basophils # (Auto) 0.0 x10^3/uL (0.0-0.2) Sodium Level 144 mmol/L (136-145) Potassium Level 5.3 mmol/L (3.5-5.1) Chloride Level 104 mmol/L (98-107) Carbon Dioxide Level 27 mmol/L (21-32) Anion Gap 13 (6-14) Blood Urea Nitrogen 41 mg/dL (8-26) Creatinine 11.1 mg/dL (0.7-1.3) Estimated GFR (Cockcroft-Gault) 4.8 Glucose Level 83 mg/dL (70-99) Calcium Level 9.2 mg/dL (8.5-10.1) Test 03/03/21 06:45 Sodium Level 142 mmol/L (136-145) Potassium Level 5.9 mmol/L (3.5-5.1) Chloride Level 101 mmol/L (98-107) Carbon Dioxide Level 26 mmol/L (21-32) Anion Gap 15 (6-14) Blood Urea Nitrogen 48 mg/dL (8-26) Creatinine 13.2 mg/dL (0.7-1.3) Estimated GFR (Cockcroft-Gault) 4.0 BUN/Creatinine Ratio 4 (6-20) Glucose Level 111 mg/dL (70-99) Calcium Level 8.8 mg/dL (8.5-10.1) Total Bilirubin 0.3 mg/dL (0.2-1.0) Aspartate Amino Transf (AST/SGOT) < 5 U/L (15-37) Alanine Aminotransferase (ALT/SGPT) 22 U/L (16-63) Alkaline Phosphatase 95 U/L (46-116) Total Protein 6.3 g/dL (6.4-8.2) Albumin 3.2 g/dL (3.4-5.0) Albumin/Globulin Ratio 1.0 (1.0-1.7) Laboratory Tests Test 03/03/21 06:45 Sodium Level 142 mmol/L (136-145) Potassium Level 5.9 mmol/L (3.5-5.1) Chloride Level 101 mmol/L (98-107) Carbon Dioxide Level 26 mmol/L (21-32) Anion Gap 15 (6-14) Blood Urea Nitrogen 48 mg/dL (8-26) Creatinine 13.2 mg/dL (0.7-1.3) Estimated GFR (Cockcroft-Gault) 4.0 BUN/Creatinine Ratio 4 (6-20) Glucose Level 111 mg/dL (70-99) Calcium Level 8.8 mg/dL (8.5-10.1) Total Bilirubin 0.3 mg/dL (0.2-1.0) Aspartate Amino Transf (AST/SGOT) < 5 U/L (15-37) Alanine Aminotransferase (ALT/SGPT) 22 U/L (16-63) Alkaline Phosphatase 95 U/L (46-116) Total Protein 6.3 g/dL (6.4-8.2) Albumin 3.2 g/dL (3.4-5.0) Albumin/Globulin Ratio 1.0 (1.0-1.7) Microbiology 03/01/21 Blood Culture - Preliminary, Resulted NO GROWTH AFTER 1 DAY Medications Current Medications Ondansetron HCl (Zofran) 4 mg 1X ONCE IVP Last administered on 03/01/21at 17:37; Start 03/01/21 at 17:00; Stop 03/01/21 at 17:10; Status DC Sodium Chloride 500 ml @ 500 mls/hr 1X ONCE IV Last administered on 03/01/21at 17:30; Start 03/01/21 at 17:00; Stop 03/01/21 at 17:59; Status DC Labetalol HCl (Normodyne Iv Push) 10 mg 1X ONCE IVP Last administered on 03/01/21at 18:48; Start 03/01/21 at 19:00; Stop 03/01/21 at 19:01; Status DC Prochlorperazine Edisylate (Compazine) 10 mg 1X ONCE IV Last administered on 03/01/21at 18:47; Start 03/01/21 at 19:00; Stop 03/01/21 at 19:01; Status DC Ondansetron HCl (Zofran) 4 mg PRN Q8HRS PRN IVP NAUSEA/VOMITING; Start 03/01/21 at 21:30; Stop 03/02/21 at 21:29; Status DC Fentanyl Citrate (Fentanyl 2ml Vial) 50 mcg PRN Q1HR PRN IVP PAIN; Start 03/01/21 at 21:30; Stop 03/02/21 at 21:29; Status DC Aspirin (Concepcion Aspirin) 325 mg 1X ONCE PO Last administered on 03/02/21at 00:09; Start 03/01/21 at 21:30; Stop 03/01/21 at 21:31; Status DC Aspirin (Aspirin Chewable) 81 mg DAILY PO Last administered on 03/03/21at 10:53; Start 03/02/21 at 12:00 Atorvastatin Calcium (Lipitor) 20 mg QHS PO Last administered on 03/02/21at 21:10; Start 03/02/21 at 21:00 Carvedilol (Coreg) 12.5 mg BIDWMEALS PO Last administered on 03/03/21at 10:54; Start 03/02/21 at 12:00 Isosorbide Mononitrate (Imdur) 30 mg DAILY PO Last administered on 03/03/21at 10:53; Start 03/02/21 at 12:00 Pantoprazole Sodium (Protonix) 40 mg DAILY PO Last administered on 03/03/21at 10:54; Start 03/02/21 at 12:00 Amlodipine Besylate (Norvasc) 2.5 mg DAILY PO Last administered on 03/03/21at 10:54; Start 03/02/21 at 12:00 Info (PHARMACY MONITORING -- do not chart) 1 each PRN DAILY PRN MC SEE COMMENTS; Start 03/03/21 at 15:15; Status UNV Info (PHARMACY MONITORING -- do not chart) 1 each PRN DAILY PRN MC SEE COMMENTS; Start 03/03/21 at 15:15 Active Scripts Active Isosorbide Mononitrate Er (Isosorbide Mononitrate) 30 Mg Tab.er.24h 30 Mg PO DAILY Atorvastatin Calcium 20 Mg Tablet 20 Mg PO QHS Carvedilol (Carvedilol) 12.5 Mg Tablet 12.5 Mg PO BIDWMEALS Amlodipine Besylate 2.5 Mg Tablet 2.5 Mg PO DAILY Reported Aspirin 81 Mg Tab.chew 1 Tab PO DAILY Hydralazine Hcl 25 Mg Tablet 1 Tab PO BID Ferric Citrate 210 Mg Tablet 2 Tab PO TIDWMEALS Pantoprazole Sodium 40 Mg Tablet.dr 40 Mg PO DAILY Calcium Acetate 667 Mg Tablet 1 Tab PO TIDWMEALS 30 Days Vitals/I & O Vital Sign - Last 24 Hours 03/02/21 03/02/21 03/02/21 03/02/21 19:53 20:10 21:12 23:06 Temp 98.2 98.5 98.2 98.5 Pulse 75 75 67 Resp 18 16 B/P (MAP) 142/67 (92) 142/67 146/70 (95) Pulse Ox 100 98 O2 Delivery Room Air Room Air Room Air 03/03/21 03/03/21 03/03/21 03/03/21 03:35 07:00 10:53 10:54 Temp 98.4 96.8 98.4 96.8 Pulse 74 64 64 64 Resp 18 20 B/P (MAP) 143/71 (95) 154/79 (104) 154/79 154/79 Pulse Ox 97 97 O2 Delivery Room Air Room Air 03/03/21 03/03/21 10:54 11:00 Temp 97.6 97.6 Pulse 64 74 Resp 18 B/P (MAP) 154/79 138/79 (98) Pulse Ox 97 O2 Delivery Room Air Intake and Output 03/02/21 03/02/21 03/03/21 15:00 23:00 07:00 Intake Total 500 ml 250 ml 0 ml Output Total 500 ml Balance 500 ml -250 ml 0 ml Images MRI of the brain without contrast 03/02/2021 Clinical History: Altered mental status. CVA. Technique: Unenhanced T1-weighted sagittal and axial, T2-weighted axial and coronal and FLAIR, gradient echo and diffusion-weighted axial images of the brain were obtained. Findings: Comparison is made to patient's CT scan of the head dated 03/01/2021. There is generalized parenchymal atrophy. Patchy and several small scattered areas of increased signal intensity are seen within the periventricular and subcortical white matter of both cerebral hemispheres on the FLAIR and T2- weighted images consistent with areas of small vessel ischemic disease. An old area infarction is seen involving the left frontotemporal lobe. This measures 7.5 cm in greatest diameter. No acute parenchymal abnormality is seen. No extra- axial fluid collection is noted. There is no MRI evidence of acute ischemia/infarction. Mild mucosal thickening is seen scattered throughout the paranasal sinuses. Normal flow voids are seen within the major vascular structures surrounding the brain parenchyma. A 1.5 cm mucous retention cyst and/or polyp is seen involving the right aspect of the sphenoid sinus. IMPRESSION: 1. Old area infarction is seen involving left frontotemporal lobe. 2. No acute parenchymal abnormality is seen. Justicifation of Admission Dx: Justifications for Admission: Justification of Admission Dx: N/A MARY CALABRESE MD Mar 03, 2021 15:34
--- NOTE | 2021-03-03 17:14 | NUR ---
pt fistula was nonfuctioning so not able to receive dialysis. orders from Dr. Gamez for IR consult. discussed this with patient and patient became very angry. said his is leaving and can get his fistula "cleaned out" at dialysis tomorrow. call placed to son, Urbano, to see if he could talk patient into staying. pt still refused. pg to Dr. Gamez to inform him of patient leaving AMA.
--- NOTE | 2021-03-03 18:26 | NUR ---
son brought clothes here for patient. pt left AMA escorted by security and SERA Abarca. IV removed intact. pt stable upon DC
== END 2021-03-03 18:00 | disposition left against medical advice (07) | DRG 70 ==
LOC: ER 16:43 → 5 SOUTH 21:31 → ER 22:35
PROVIDERS: ADMIT Family Medicine; ATTEND Family Medicine
PROC: 5A1D70Z Performance of Urinary Filtration, Intermittent, Less than 6 Hours Per Day (ICD-10-PCS; principal; 2021-03-03)
DX: G93.40 Encephalopathy, unspecified (principal); N18.6 End stage renal disease; N25.81 Secondary hyperparathyroidism of renal origin; I69.351 Hemiplegia and hemiparesis following cerebral infarction affecting right dominant side; I12.0 Hypertensive chronic kidney disease with stage 5 chronic kidney disease or end stage renal disease; R11.2 Nausea with vomiting, unspecified; D63.1 Anemia in chronic kidney disease; E78.00 Pure hypercholesterolemia, unspecified; E78.5 Hyperlipidemia, unspecified; F01.50 Vascular dementia, unspecified severity, without behavioral disturbance, psychotic disturbance, mood disturbance, and anxiety; F02.80 Dementia in other diseases classified elsewhere, unspecified severity, without behavioral disturbance, psychotic disturbance, mood disturbance, and anxiety; F17.200 Nicotine dependence, unspecified, uncomplicated; I69.311 Memory deficit following cerebral infarction; K21.9 Gastro-esophageal reflux disease without esophagitis; Z20.822 Contact with and (suspected) exposure to COVID-19; Z79.82 Long term (current) use of aspirin; Z79.899 Other long term (current) drug therapy; Z82.49 Family history of ischemic heart disease and other diseases of the circulatory system; Z99.2 Dependence on renal dialysis; Z53.29 Procedure and treatment not carried out because of patient's decision for other reasons
CPT/HCPCS: 36415; 70450; 70551; 71045; 74176; 80048; 80053; 82962; 83605; 83690; 83735; 83880; 84443; 84484; 85007; 85025; 86706; 87040; 93005; 96361; 96374; 96375; J0780; J2405; J3490; J7040; 99285-25; G0378